=== PATIENT | female | born 1990 | race Caucasian/White ===

== ENCOUNTER 2021-06-10 10:37 | Outpatient (CLI) | payer BC, SELFPAY ==
--- NOTE | ~2021-06-10 | XR_ITS ---
EXAMINATION: XR hysterosalpingogram DATE: 06/10/2021 13:12 CDT INDICATION: Infertility TECHNIQUE: Fluoroscopy was provided for a hysterosalpingogram performed by Dr. Guanaco Ramirez. FINDINGS: There is normal intraluminal morphology of the uterus. The fallopian tubes are normal in a ppearance and are widely patent, with free spill into the peritoneal cavity from both sides. IMPRESSION: 1. Normal hysterosalpingogram. The uterus demonstrates normal intraluminal morphology and both fall opian tubes are patent. Reviewed, dictated and finalized at location A. IMPRESSION: 1. Normal hysterosalpingogram. The uterus demonstrates normal intraluminal mo rphology and both fallopian tubes are patent.
[2021-06-10 12:42] LABS: Beta HCG Quantitative < 2.39 mIU/ML
--- NOTE | 2021-06-10 13:08 | W.PM.PROC2 ---
Procedure Note - Detailed Date of Procedure 06/10/21 Pre-op Diagnosis infertility and Pre surgery testing Post-op Diagnosis same Procedure Performed Hysterosalpingogram Surgeon Nicola Ramirez MD Anesthesia none Indications unexplained infertility Findings normal hysterosalpingogram Description of Procedure the patient was placed on the fluoroscopy table. A speculum was placed in the vagina. Cervix was grasped with a tenaculum. The catheter was placed the uterine cavity and the bulb was inflated. The speculum was removed with the angiocath still placed in the intrauterine cavity. Dye was then removed. The catheter. Fluoroscopic images obtained this process. Patient experienced some moderate to severe discomfort. The balloon of the catheter was deflated and the catheter was removed while the images were being obtained. The procedure was terminated. Patient tolerated the procedure well. There were no complications. Estimated Blood Loss 0 Complications No immediate complications Condition stable Disposition other
== END 2021-06-10 10:38 | disposition home or self-care (01) ==
LOC: ANHIMG 10:48
PROVIDERS: PCP Obstetrics & Gynecology; Visit Provider Obstetrics & Gynecology
DX: Z01.89 Encounter for other specified special examinations (principal); N97.9 Female infertility, unspecified
CPT/HCPCS: 36415; 58340; 74740; 84702; Q9966; Q9967

== ENCOUNTER 2021-09-07 02:29 | Day surgery (SDC) | payer BC, SELFPAY ==
[2021-09-03 14:42] VITALS: BMI 33.1
--- NOTE | 2021-09-03 14:58 | PC.NURSE ---
Report to the Outpatient Waiting Room, entrance under the green pavilion located off [facility], at time _1230__ on date ___09/07/21____. OR Time: ____1430____. - You and your visitor will be asked a series of questions to screen for COVID 19 for your protection. - A mask is required within the hospital. - Only one visitor is allowed at this time. Patient visitors will be guided where to wait when not with patient. Preoperative COVID Testing Requirements: No COVID Test needed if: (proof is required; if not received patient will have Rapid Test prior to entry) - Patient has received COVID Vaccine at least 14 days prior to procedure date or - Patient has positive COVID test result within last 90 days of surgery date. COVID Test needed if above criteria is not met If not COVID vaccinated a COVID test must be conducted within 72 hours of surgery and patient is asked to isolate self from time of testing until procedure. You will go to the [facility] for your COVID testing. The [facility] is located at the corner of [address] [facility]. You will only be called if COVID results are positive and your surgeon may reschedule your elective surgery date. Patients may have clear liquids (water, carbonated beverages, clear teas, apple juice) until 3 hours prior to surgery with a maximum of 20 ounces. - No food from midnight until time of surgery - Infants may have breast milk until 4 hours before surgery, infant formula 6 hours prior to surgery. - Children will be allowed to drink immediately following surgery. If applicable, please bring a bottle or sippy cup to assist with drinking. Juice, water, soda, and popsicles are readily available. For infants on formula, please bring formula the day of surgery. Pacifiers are allowed. Take the following medications with a SIP of water the morning of surgery: __N/A Medications to discontinue per physician N/A Date to take last dose Please no make-up, nail latvian, hairspray, perfume, deodorant, or body powder the day of surgery. No jewelry (including any body piercings) or valuables the day of surgery, leave them at home. Please take a shower or bath the night before, or the morning of, surgery with an antibacterial soap. Wear comfortable, loose fitting clothing. Children are encouraged to wear pajamas. - Jewelry must be removed prior to entering the operating room. Rings and piercings that are not removed may be cut off. - The hospital will not accept responsibility for valuables. - Please leave all valuables, including medications, at home the day of surgery. If you are going home after surgery, a licensed frontload driver must drive you home. - NO public transportation without another adult. - We recommend that an adult stay with you for 24 hours following discharge. - We also recommend that you do not drive, make important decision, drink alcoholic beverages, or take any drugs that were not prescribed by your health care provider for at least 24 hours after your discharge time. For Pediatric surgeries, we recommend two adults accompany the child home (only one inside the building at this time). Follow any additional instructions given to you from your surgeon. Telephone instructions given to __PT and asked if any additional questions and then verbalized understanding. Patient advised to call surgeon office or pre surgery nurse liaison [phone] if any additional questions.
--- NOTE | 2021-09-04 15:05 | WPDANESEPPF ---
Anes - Initial Pre Proc Eval Procedure: Operation Date: 09/07/21 14:30 Proposed Procedures p Suction Dilatation and Curettage - Haleigh Up MD <Enrique Ty MD - Last Filed: 09/21/21 14:55> Date/Time: 09/04/21 15:05 <Enrique Ty MD - Last Filed: 09/21/21 14:55> Surgeon: Haleigh Up MD <Enrique Ty MD - Last Filed: 09/21/21 14:55> Pre Op Diagnosis: missed AB <Enrique Ty MD - Last Filed: 09/21/21 14:55> Patient Data Age: 31 Gender: F Height: 1.68 m Weight: 93.18 kg <Enrique Ty MD - Last Filed: 09/21/21 14:55> Allergies Allergy/AdvReac Type Severity Reaction Status Date / Time No Known Allergies Allergy Unverified 09/07/21 12:51 <Enrique Ty MD - Last Filed: 09/21/21 14:55> Home Medications Medication Instructions Recorded Confirmed Type No Home Medications 09/03/21 09/07/21 History <Enrique Ty MD - Last Filed: 09/21/21 14:55> Patient hx anesthesia problems: none <Seun Casey MD - Last Filed: 09/07/21 13:30> Family hx anesthesia problems: none <Seun Casey MD - Last Filed: 09/07/21 13:30> Results Review: All pre-operative results and documents have been reviewed as part of the pre-operative evaluation. <Enrique Ty MD - Last Filed: 09/21/21 14:55> [facility] Past Medical History Medical History: Medical History (Updated 09/07/21 @ 14:36 by Haleigh Up MD) Obesity <Enrique Ty MD - Last Filed: 09/21/21 14:55> Surgical History Surgical History: Surgical History (Updated 09/07/21 @ 13:30 by Seun Casey MD) H/O wisdom tooth extraction <Enrique Ty MD - Last Filed: 09/21/21 14:55> Family History Family History: Family History Sibling Family history of migraine headaches Mother Patient's mother is in good health <Enrique Ty MD - Last Filed: 09/21/21 14:55> Social History Social History: Social History Smoking status: Never smoker Second hand tobacco smoke exposure: No Alcohol intake: current Drinks per week: 1 Alcohol use details: STATES NONE SINCE FINDING OUT SHE WAS Substance use: never Substance use type: does not use Living arrangements: with family Spiritual care concerns: No <Enrique Ty MD - Last Filed: 09/21/21 14:55> Anes - Eval Final PreProcedure Day of Procedure 09/04/21 15:05 <Enrique Ty MD - Last Filed: 09/21/21 14:55> Patient weight: obese <Seun Casey MD - Last Filed: 09/07/21 13:30> Heart: regular rate and rhythm <Seun Casey MD - Last Filed: 09/07/21 13:30> Lungs: clear to auscultation <Seun Casey MD - Last Filed: 09/07/21 13:30> Airway: Mallampati scale class II <Seun Casey MD - Last Filed: 09/07/21 13:30> Neurological: alert and oriented <Seun Casey MD - Last Filed: 09/07/21 13:30> Last oral intake: >/= 8 hours <Seun Casey MD - Last Filed: 09/07/21 13:30> ASA classification: II <Seun Casey MD - Last Filed: 09/07/21 13:30> Emergent: no <Seun Casey MD - Last Filed: 09/07/21 13:30> Anesthetic plan: proceed <Seun Casey MD - Last Filed: 09/07/21 13:30> Anesthesia type and monitoring: general GIVS and standard monitoring <Seun Casey MD - Last Filed: 09/07/21 13:30> Results Review: All pre-operative results and documents have been reviewed as part of the pre-operative evaluation. <Enrique Ty MD - Last Filed: 09/21/21 14:55> Informed Consent: The patient's anesthetic plan and its attendant risks and benefits were discussed with the patient/family/POA. Questions were solicited and answers provided to the satisfaction of the patient/family/POA. <Enrique Ty MD - Last Filed: 09/21/21 14:55>
[2021-09-07] MEDS: LACTATED RINGERS 1,000 ML 30 ML IV CONT (13:10)
[2021-09-07] MEDS: ACETAMINOPHEN 500 MG TABLET 1000 MG PO (13:16)
--- NOTE | 2021-09-07 14:34 | PM.IMHP ---
H&P: HPI History of Present Illness Date/Time: 09/07/21 14:34 Chief Complaint: suction D and C Narrative: Chacha Landeros is a 31yo with 8 week missed ab, diagnosed last week in office. No bleeding. very mild cramping. O+. Plan for suction D and C today. Review of Systems Review of Systems: All systems reviewed & are unremarkable except as noted in HPI and below PMFSH Past Medical History Medical History (Updated 09/07/21 @ 14:36 by Haleigh Up MD) Obesity Surgical History Surgical History (Updated 09/07/21 @ 13:30 by Seun Casey MD) H/O wisdom tooth extraction Family History Family History Sibling Family history of migraine headaches Mother Patient's mother is in good health Social History Social History Smoking status: Never smoker Second hand tobacco smoke exposure: No Alcohol intake: current Drinks per week: 1 Alcohol use details: STATES NONE SINCE FINDING OUT SHE WAS Substance use: never Substance use type: does not use Living arrangements: with family Spiritual care concerns: No Meds Home Medications and Allergies Home Medications Medication Instructions Recorded Confirmed Type No Home Medications 09/03/21 09/07/21 History Allergies Allergy/AdvReac Type Severity Reaction Status Date / Time No Known Allergies Allergy Unverified 09/07/21 12:51 Exam Const: General: no acute distress Resp: Effort & Inspection: normal respiratory effort Auscultation: clear to auscultation bilaterally Cardio: Rate: regular rate Rhythm: regular rhythm GI: GI Palp: Yes Soft to palpation Extrem: General: normal to inspection Assessment and Plan Assessment and plan (1) Missed ab: Code(s): O02.1 - Missed Status: Acute Additional Plan Plan to proceed with suction D and C. Previously discussed RBA. doxy 100 intraop Rh pos
--- NOTE | 2021-09-07 14:37 | WPDHPUPDATE1 ---
History and Physical Update Update Date/Time: 09/07/21 14:37 History and Physical has been reviewed, including an updated exam of the patient. There are NO changes in the patient's condition. Risks, benefits, and alternatives have been discussed and questions answered. Patient agrees to proceed with procedure.
[2021-09-07] MEDS: DOXYCYCLINE IV 100 MG in SODIUM CHLORIDE 0.9% IV 100 ML IVPB (14:43)
[2021-09-07] MEDS: LIDO 1%/EPINEPHRINE 1:100,000 50 ML VIAL 10 ML INFILTRATE (14:54)
[2021-09-07] MEDS: FERRIC SUBSULFATE 8 ML SOLUTION WITH APPLICATOR TOPICAL (15:02)
[2021-09-07] MEDS: KETOROLAC 30 MG/ML VIAL (*BKC) IV PUSH (15:04)
--- NOTE | 2021-09-07 15:06 | W.PM.PROC2 ---
Procedure Note - Detailed Date of Procedure 09/07/21 Pre-op Diagnosis missed AB Post-op Diagnosis same Procedure Performed suction D and C Surgeon Haleigh Up MD Anesthesia MAC Indications 8 week missed Description of Procedure The patient was taken to the OR and placed in supine position in dorsal lithotomy. She received MAC anesthesia and doxycycline. She was prepped and draped in normal fashion. A speculum was placed and the cervix was grasped with a single tooth tenaculum. A paracervical block was placed with 10cc 1% lidocaine with epinephrine. The cervix was sequentially dilated to 8 dover. The suction was tested and then the suction catheter was inserted into the uterine cavity. Several passes were made until no further products of conception were obtained. The tenaculum was removed and hemostasis was obtained with pressure and monsel's solution. The speculum was removed. The patient tolerated the procedure well and was taken to the recovery room in stable condition. Estimated Blood Loss 50 Drains No Packing No Pathology yes Complications No immediate complications Condition stable Disposition same day
[2021-09-07 15:10] VITALS: BP 121/53; PULSE 101; RESP 16; O2SAT 95
[2021-09-07 15:40] VITALS: BP 123/58; PULSE 89; RESP 16
[2021-09-07 16:10] VITALS: BP 121/59; PULSE 77; RESP 16
== END 2021-09-07 16:28 | disposition home or self-care (01) ==
PROVIDERS: Visit Provider Obstetrics & Gynecology
PROC: (CPT 59820; principal; 2021-09-07 14:30)
DX: O02.1 Missed abortion (principal); Z3A.08 8 weeks gestation of pregnancy
CPT/HCPCS: 59820; 36415; 85461; 88305; A9270; J1100; J1885; J2250; J2405; J2704; J3010; J7120

== ENCOUNTER 2021-11-22 10:39 | Emergency (ER) | payer BC, SELFPAY ==
[2021-11-22 10:48] VITALS: BP 124/85; PULSE 89; RESP 16; TEMP 36.8; O2SAT 100
--- NOTE | 2021-11-22 11:14 | ED.GENADULT ---
HPI - General Adult General Chief complaint: Abdominal Pain Stated complaint: Stomach pain Source: patient Mode of arrival: ambulatory Limitations: no limitations History of Present Illness HPI narrative: Patient presents for evaluation of pelvic pain since last night around 2029. She indicates she was watching TV at the time of symptom onset. Pain has primarily been present when ambulating and is alleviated with rest. She rates her pain as 8 out of 10 in severity with movement, described as sharp . She denies any fever, chills, nausea, vomiting, change in bowel pattern. Last bowel movement was this morning, solid in consistency, without the presence of blood or mucus in the stool. LMP 11/05/2021. Denies any vaginal bleeding or discharge. She had a miscarriage back in August 2021 and was 8 weeks gestation at that time. She had a subsequent dilatation and curettage. She and her are actively attempting to conceive. She took some tylenol last night for her pain. She denies any other abdominal surgeries. She states she had an ovarian cyst many years ago and is unsure whether her current symptoms are consistent with those experienced with ovarian cyst in the past. Related Data Home Medications Medication Instructions Recorded Confirmed No Home Medications 09/03/21 09/07/21 Allergies Allergy/AdvReac Type Severity Reaction Status Date / Time No Known Allergies Allergy Unverified 09/07/21 12:51 Review of Systems Review of Systems: CONSTITUTIONAL: Denies fever, chills, or sweats. EYES: Denies visual changes, redness, or discharge. ENT: Denies rhinorrhea, congestion, sore throat, or otalgia. CARDIOVASCULAR: Denies chest pain, palpitations, or edema. RESPIRATORY: Denies cough or dyspnea. GASTROINTESTINAL: Reports pelvic pain. Denies nausea, vomiting, or diarrhea. GENITOURINARY: Denies dysuria or hematuria. SKIN: Denies rash or itching. MUSCULOSKELETAL: Denies back pain, joint pain, or myalgia. NEUROLOGIC: Denies headache, numbness, dizziness, or weakness. PSYCHIATRIC: Denies anxiety or depression. [facility] Past Medical History Medical History (Updated 11/22/21 @ 11:20 by Rito Urias, YAZ, PURVI) Obesity Ovarian cyst Surgical History Surgical History H/O wisdom tooth extraction History of D&C Family History Family History Sibling Family history of migraine headaches Mother Patient's mother is in good health Social History Social History Smoking status: Never smoker Second hand tobacco smoke exposure: No Alcohol intake: current Drinks per week: 1 Alcohol use details: STATES NONE SINCE FINDING OUT SHE WAS Substance use: never Substance use type: does not use Spiritual care concerns: No Exam Narrative: GENERAL: Well-appearing, well-nourished, and in no acute distress. HEAD: Normocephalic, atraumatic. EYES: PERRLA and EOMI. ENT: Nares clear, no rhinorrhea or epistaxis. Mucous membranes moist. Oropharynx without tonsillar hypertrophy exudate or other lesions. Bilateral TMs pearly lee nonbulging NECK: Supple. No adenopathy or masses. No carotid bruits or JVD CHEST: Clear to auscultation. No respiratory distress. No wheezes rales or rhonchi HEART: Regular rate and rhythm. No murmur heard. Normal peripheral pulses. ABDOMEN: Soft, nontender, nondistended, normal active bowel sounds. EXTREMITIES: Normal range of motion. No edema. SKIN: Warm, dry, no rash. NEURO: No focal deficits. Alert and oriented x3. PSYCH: Normal mood and affect. Course Course Emergency Course: This is a 31-year-old female who presented with complaints of pelvic pain. There is no evidence of infection in her urine. was negative. I did offer to perform pelvic exam, which she declined. Unfortunately I can
== END 2021-11-22 11:25 | disposition short-term general hospital (02) ==
PROVIDERS: Emergency Provider Nurse Practitioner
DX: R10.2 Pelvic and perineal pain (principal); E66.9 Obesity, unspecified; Z68.33 Body mass index [BMI] 33.0-33.9, adult
CPT/HCPCS: 81003; 81025; 99212; G0463

== ENCOUNTER 2021-11-22 11:33 | Emergency (ER) | payer BC, SELFPAY ==
[2021-11-22 11:35] VITALS: BP 123/76; PULSE 88; RESP 16; TEMP 36.3; O2SAT 100
[2021-11-22 12:06] LABS: Basophils Percent Auto 0.2 % (0.2-1.2); Eosinophils Absolute Auto 0.1 K/mm3 (0-0.3); Eosinophils Percent Auto 0.9 % (0-4.4); Hematocrit 45.2 % (37.0-47.0); Hemoglobin 14.3 g/dL (12.0-15.0); Immature Granulocyte Absolute 0.05 K/mm3 (0.00-0.031); Immature Granulocyte Percent A 0.5 % (0-0.5); Lymphocytes Absolute Auto 2.59 K/mm3 (0.9-3.2); Lymphocytes Percent Auto 28.3 % (18.3-44.2); Mean Corpuscular HGB Conc 31.6 g/dl (32-36); Mean Corpuscular Hemoglobin 28.7 pg (26-34); Mean Corpuscular Volume 90.6 fl (80-100); Mean Platelet Volume 9.7 fl (7.4-10.4); Monocytes Absolute Auto 0.7 K/mm3 (0.1-0.6); Monocytes Percent Auto 7.2 % (2.6-8.5); Neutrophils Absolute Auto 5.7 K/mm3 (1.3-6.7); Neutrophils Percent Auto 62.9 % (45.5-73.1); Platelet Count Result 300 k/mm3 (150-375); Red Blood Count 4.99 M/mm3 (4.2-5.4); Red Cell Distribution Width 12.9 % (11.5-14.5); White Blood Count 9.1 K/mm3 (4.5-10.0)
[2021-11-22 12:14] LABS: Add Urine Microscopic? YES; Appearance Urine Cloudy (Clear); Bacteria Urine 2+ /hpf; Bilirubin Urine Negative (Negative); Blood Urine 1+ (Negative); Color Urine Yellow (Yellow); Glucose Urine UA Negative (Negative); Ketones Urine Trace mg/dL (Negative); Leukocyte Esterase Ur Trace LEU/UL (Negative); Mucus Urine Rare /lpf; Nitrate Urine Negative (Negative); Protein Urine Negative (Negative); Squamous Epithelial Cell Urine Moderate /hpf (Few); Urobilinogen Urine Negative mg/dL (<2.0)
[2021-11-22 12:17] LABS: Alanine Aminotransferase 25 U/L (4-35); Albumin Level 4.9 g/dL (3.5-5.1); Alkaline Phosphatase 77 U/L (38-126); Anion Gap 10 mmol/L (8-16); Aspartate Amino Transferase 27 U/L (14-36); Bilirubin,Total 0.6 mg/dL (0.2-1.3); Blood Urea Nitrogen 9 mg/dL (7-17); Calcium 9.1 mg/dL (8.4-10.2); Carbon Dioxide 24 mmol/L (22-30); Chloride 103 mmol/L (98-107); Estimated CRCL calculation 104 ml/min; Estimated Glomerular Filt Rate > 60; Glucose 96 mg/dL (65-110); Lipase 35 U/L (23-300); Sodium 137 mmol/L (137-145)
--- NOTE | 2021-11-22 12:47 | ED.ABDPAIN ---
HPI - Abdominal Pain General Chief Complaint: Abdominal Pain Stated Complaint: pelvic pain/abd pain Time Seen by Provider: 11/22/21 11:58 Source: patient History of Present Illness HPI narrative: Patient presents with lower abdominal pain. Reports her pain started last night. Her pain is achy is only present when she is walking around no radiation. Reports she is feeling much better now initially went to an urgent care and was referred to an ER for further evaluation. She denies any nausea vomiting or diarrhea she denies prior abdominal surgeries she denies any urinary symptoms denies any vaginal discharge or bleeding Related Data Home Medications Medication Instructions Recorded Confirmed No Home Medications 09/03/21 09/07/21 Allergies Allergy/AdvReac Type Severity Reaction Status Date / Time No Known Allergies Allergy Unverified 09/07/21 12:51 Review of Systems Review of Systems: CONSTITUTIONAL: Denies fever, chills, or sweats. EYES: Denies visual changes, redness, or discharge. ENT: Denies rhinorrhea, congestion, sore throat, or otalgia. CARDIOVASCULAR: Denies chest pain, palpitations, or edema. RESPIRATORY: Denies cough or dyspnea. GASTROINTESTINAL: Denies nausea, vomiting, or diarrhea. GENITOURINARY: Denies dysuria or hematuria. SKIN: Denies rash or itching. MUSCULOSKELETAL: Denies back pain, joint pain, or myalgia. NEUROLOGIC: Denies headache, numbness, dizziness, or weakness. PSYCHIATRIC: Denies anxiety or depression. All systems reviewed & are unremarkable except as noted in HPI and below PMFSH Past Medical History Medical History Obesity Ovarian cyst Surgical History Surgical History H/O wisdom tooth extraction History of D&C Family History Family History Sibling Family history of migraine headaches Mother Patient's mother is in good health Social History Social History Smoking status: Never smoker Second hand tobacco smoke exposure: No Alcohol intake: current Drinks per week: 1 Alcohol use details: STATES NONE SINCE FINDING OUT SHE WAS Substance use: never Substance use type: does not use Spiritual care concerns: No Exam Narrative: GENERAL: Well-appearing, well-nourished, and in no acute distress. HEAD: Normocephalic, atraumatic. EYES: PERRLA and EOMI. ENT: Nares clear, no rhinorrhea or epistaxis. Mucous membranes moist. NECK: Supple. No masses. No JVD ABDOMEN: Soft, nontender, nondistended, normal active bowel sounds. EXTREMITIES: Normal range of motion. No edema. SKIN: Warm, dry, no rash. NEURO: No focal deficits. Alert and oriented x3. PSYCH: Normal mood and affect. Course Reevaluation(s) Reevaluation #1: Patient continues to be without pain while in the ER. Results and plan reviewed with patient. Patient is comfortable outpatient plan. Date: 11/22/21 Time: 13:03 Vital Signs Vital signs: Vital Signs Temperature 36.3 C L 11/22/21 11:35 Pulse Rate 88 11/22/21 11:35 Respiratory Rate 16 11/22/21 11:35 Blood Pressure 123/76 11/22/21 11:35 Pulse Oximetry 100 11/22/21 11:35 Temperature 36.3 C L 11/22/21 11:35 Pulse Rate 88 11/22/21 11:35 Respiratory Rate 16 11/22/21 11:35 Blood Pressure 123/76 11/22/21 11:35 Pulse Oximetry 100 11/22/21 11:35 MDM - Abdominal Pain MDM Narrative Medical decision making narrative: H&P as above, vss, pt looks clinically well, exam without pain, patient declined pelvic exam labs with UA likely contaminated culture is pending, risks and benefits of imaging discussed with the patient low concern for acute process patient is comfortable without further imaging, additional labs/img considered, symptomatic relief available as needed, on reevaluation pt continues to looks cl
== END 2021-11-22 13:13 | disposition home or self-care (01) ==
PROVIDERS: Physician Assistant; Emergency Provider Emergency Medicine
DX: R10.2 Pelvic and perineal pain (principal); E66.9 Obesity, unspecified; Z68.33 Body mass index [BMI] 33.0-33.9, adult
CPT/HCPCS: 36415; 80053; 81001; 81025; 83690; 85025; 87086; 87088; 99283

== ENCOUNTER 2021-11-30 07:04 | Outpatient (RCR) | payer BC, SELFPAY ==
[2021-11-27 17:31] LABS: Beta HCG Quantitative 31.64 mIU/ML
[2021-11-30 08:06] LABS: Beta HCG Quantitative 142.31 mIU/ML
== END 2022-02-25 23:59 | disposition home or self-care (01) ==
LOC: ANHLAB 07:04
PROVIDERS: Visit Provider Obstetrics & Gynecology
DX: Z32.01 Encounter for pregnancy test, result positive (principal)
CPT/HCPCS: 36415; 84702

== ENCOUNTER 2022-07-26 15:00 | Inpatient (IN) | payer BC, SELFPAY ==
--- NOTE | 2022-07-20 14:00 | PC.NURSE ---
Verified with OR schedule and patient --C/S on 08/06/22 at 0730
[2022-07-26] VITALS (46 sets, daily range): BP systolic 57–125; BP diastolic 36–110; PULSE 60–161; RESP 14–20; TEMP 36.1–36.3; O2SAT 97–100; BMI 30.6
--- OUTSIDE RECORDS SUMMARY | 2022-07-26 15:16 | XMS_ITS | Encounter Summary ---
:1990 Author Reason for Visit OB visit Assessment and Plan 1. care: history of infertili ty 2. Breech presentation 3. Gestational diabetes mellitus, class A>1< Discussion Note: None recorded.Patient educational handouts: No information available. Plan of Care Reminders Provider Appointments None recorded. ? ? Lab None recorded. ? ? Referral None recorded. ? ? Procedures None recorded. ? ? Surgeries None recorded. ? ? Imaging None recorded. ? ? Medications Name Start Date ? ? Contour Next EZ Meter ? TEST BLOOD SUGAR FOUR TIMES DAILY Contour Next Test Strips ? Microlet Lancet ? OneTouch Delica Plus Lancet 33 gauge ? ? Medications Administered None recorded. Vitals Height Weight BMI Blood Pressure 5 ft 8 in 190 lbs 28.9 kg/m2 134/83 mm[Hg] Results Lab Results None recorded. Allergies Code Code System Name Reaction Severity Onset NKDA ? ? ? Problems Name Status Onset Date Source ? 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 Active 02/01/2022 ? Gestational Diabetes Mellitus, Class a>1< Active ? ? Breech Presentation Active ? ? Care: History of Infertility Active ? ? Procedures Date Name Performed by ? 09/07/2021 Suction Dilation & Curettage (Surg) Info rmation not available 06/10/2021 Hysterosalpingography Information not av ailable 06/19/2013 Colposcopy Information not avai howard
--- OUTSIDE RECORDS SUMMARY | 2022-07-26 15:16 | XMS_ITS | Encounter Summary ---
:1990 Author Reason for Visit None recorded. Assessment and Plan 1. Gestational diabetes mellitus, class A>1< ? US, obstetric, biophysical profile + non-stress test Discussion Note: None recorded.Patient educational handouts: No information available. Plan of Care Reminders Provider Appointments None recorded. ? ? Lab None recorded. ? ? Referral None recorded. ? ? Procedures None recorded. ? ? Surgeries None recorded. ? ? Imaging US, Obstetric, Biophysical Profile + [place] Non-stress Test Medications Name Start Date ? ? Contour Next EZ Meter ? TEST BLOOD SUGAR FOUR TIMES DAILY Contour Next Test Strips ? Microlet Lancet ? OneTouch Delica Plus Lancet 33 gauge ? ? Medications Administered None recorded. Vitals None recorded. Results Lab Results None recorded. Allergies Code [...] av ailable 06/19/2013 Colposcopy Information not avai lable Notes: Colpo done for abnormal pap juventino t showed lgsil ----CIN1
--- OUTSIDE RECORDS SUMMARY | 2022-07-26 15:17 | XMS_ITS | Encounter Summary ---
:1990 Author Reason for Visit None recorded. Assessment and Plan 1. Gestational diabetes mellitus, class A>1< ? non-stress test Discussion Note: None recorded.Patient educational handouts: No information available. Plan of Care Reminders Provider Appointments None recorded. ? ? Lab None recorded. ? ? Referral None recorded. ? ? Procedures None recorded. ? ? Surgeries None recorded. ? ? Imaging Non-stress Test 06/22/2022 Cord Medications Name Start Date ? ? Contour [...] abnormal pap juventino t showed lgsil ----CIN1 06/14/2022 Non-stress Test Cord
--- OUTSIDE RECORDS SUMMARY | 2022-07-26 15:17 | XMS_ITS | Encounter Summary ---
:1990 Author Reason for Visit OB visit Assessment and Plan 1. care: history of infertili ty 2. Breech presentation ? section (SURG) 3. Gestational diabetes mellitus, class A>1< Discussion Note: None recorded.Patient educational handouts: No information available. Plan of Care Reminders Provider Appointments None recorded. ? ? Lab None recorded. ? ? Referral None recorded. ? ? Procedures None recorded. ? ? Surgeries Section (SURG) 08/06/2022 [facility] None recorded. ? ? Medications Name Start Date ? ? Contour Next EZ Meter ? TEST BLOOD SUGAR FOUR TIMES DAILY Contour Next Test Strips ? Microlet Lancet ? OneTouch Delica Plus Lancet 33 gauge ? ? Medications Administered None recorded. Vitals Height Weight BMI Blood Pressure 5 ft 8 in 190 lbs 28.9 kg/m2 116/76 mm[Hg] Results Lab Results None recorded. Allergies [...]
--- OUTSIDE RECORDS SUMMARY | 2022-07-26 15:17 | XMS_ITS | Encounter Summary ---
:1990 Author Reason for Visit None recorded. Assessment and Plan 1. Gestational diabetes mellitus, class A>1< Pt here for diet teaching. Pt was ruled in for GDM today after appt with Dr. Up. 3hr GTT was borderline and after checkin g BS QID a few pp sugars and one fasting elevated. Went over ideal ranges for FBS and pp BS. Went over carb counting and carb ranges for each meal/snack. Gave ideas f or foods to eat for meals/snacks. Discussed drink options and to avoid soda and juic e. Pt has a meat aversion this . Went over alternatives for protein besid es meat. Told pt she can go online to [employer] for meal options or to look up low carb meal recipes online for ideas as well. Told pt to continue checking BS QID and adjusting d iet to follow low carb diet to try to keep BS within normal range. Pt aware if sugars aren't controlled by diet we would discuss starting insulin. Went over NST schedule with pt and importance of keeping these appts and checking BS for her and baby's health. Pts questions were answered and pt verbalized understanding. CALEB durham Discussion Note: None recorded.Patient educational handouts: No [...]
--- OUTSIDE RECORDS SUMMARY | 2022-07-26 15:17 | XMS_ITS | Encounter Summary ---
[...] ? Imaging US, Obstetric, Biophysical Profile + [place] Non-stress Test Medications Name Start Date ? [...]
--- OUTSIDE RECORDS SUMMARY | 2022-07-26 15:17 | XMS_ITS | Encounter Summary ---
:1990 Author Reason for Visit OB visit Assessment and Plan 1. Gestational diabetes mellitus, class A>1< Discussion Note: [...] BMI Blood Pressure 5 ft 8 in 191 lbs 29 kg/m2 129/77 mm[Hg] Results Lab Results None recorded. Allergies [...] av ailable 06/19/2013 Colposcopy Information not avai labstacia Notes: Colpo done for abnormal pap juventino t showed lgsil ----CIN1 06/14/2022 Non-
--- OUTSIDE RECORDS SUMMARY | 2022-07-26 15:17 | XMS_ITS | Encounter Summary ---
[...] BMI Blood Pressure 5 ft 8 in 189 lbs 28.7 kg/m2 119/83 mm[Hg] Results Lab Results None recorded. Allergies [...] av ailable 06/19/2013 Colposcopy Information not avai labtsacia Notes: Colpo done for abnormal pap juventino t showed lgsil ----CIN1 06/14/2022 Non
--- OUTSIDE RECORDS SUMMARY | 2022-07-26 15:17 | XMS_ITS | Encounter Summary ---
:1990 Author Reason for Visit OB visit Assessment and Plan 1. Routine care Discussion Note: None recorded.Patient educational handouts: No [...] ft 8 in 189 lbs 28.7 kg/m2 138/82 mm[Hg] Results Lab Results None recorded. Allergies [...] abnormal pap juventino t showed lgsil ----CIN1 Vaccine List None recorded. Social History
--- OUTSIDE RECORDS SUMMARY | 2022-07-26 15:17 | XMS_ITS | Encounter Summary ---
[...] answered and pt verbalized understanding. CALEB durham ? US, obstetric, follow-up Discussion Note: None recorded.Patient educational handouts: No information available. Plan of Care Reminders Provider Appointments None recorded. ? ? Lab None recorded. ? ? Referral None recorded. ? ? Procedures None recorded. ? ? Surgeries None recorded. ? ? Imaging US, Obstetric, Follow-up 06/14/2022 [place] Medications Name Start Date ? ? Contour Next EZ Meter ? TEST BLOOD SUGAR FOUR TIMES DAILY Contour Next Test Strips ? Microlet Lancet ? OneTouch Delica Plus Lancet 33 gauge ? ? Medications Administered
--- OUTSIDE RECORDS SUMMARY | 2022-07-26 15:17 | XMS_ITS | Encounter Summary ---
:1990 Author Reason for Visit None recorded. Assessment and Plan 1. Gestational diabetes mellitus, class A>1< ? US, obstetric, follow-up ? US, obstetric, biophysical profile + non-stress test Discussion Note: None recorded.Patient educational handouts: No information available. Plan of Care Reminders Provider Appointments None recorded. ? ? Lab None recorded. ? ? Referral None recorded. ? ? Procedures None recorded. ? ? Surgeries None recorded. ? ? Imaging US, Obstetric, Follow-up 07/13/2022 [place] ? US, Obstetric, Biophysical Profile + [place] Non-stress Test Medications Name Start Date ? [...]
--- OUTSIDE RECORDS SUMMARY | 2022-07-26 15:17 | XMS_ITS | Encounter Summary ---
[...] None recorded. ? ? Imaging Non-stress Test 07/20/2022 [place] Medications Name Start Date ? ? Contour [...] abnormal pap juventino t showed lgsil ----CIN1 06/22/2022 Non-stress Test [place]
--- OUTSIDE RECORDS SUMMARY | 2022-07-26 15:17 | XMS_ITS | Encounter Summary ---
:1990 Author Reason for Visit OB visit Assessment and Plan 1. Breech presentation 2. Gestational diabetes mellitus, class A>1< Discussion Note: [...] ft 8 in 191 lbs 29 kg/m2 140/82 mm[Hg] Results Lab Results None recorded. Allergies [...] Notes: Colpo done for abnormal pap juventino dominguez
--- OUTSIDE RECORDS SUMMARY | 2022-07-26 15:17 | XMS_ITS | Encounter Summary ---
[...] BMI Blood Pressure 5 ft 8 in 192 lbs 29.2 kg/m2 119/77 mm[Hg] Results Lab Results None recorded. Allergies [...] pap juventino t showed lgsil ----CIN1 06/14/2022 Non-s
--- OUTSIDE RECORDS SUMMARY | 2022-07-26 15:17 | XMS_ITS | Encounter Summary ---
[...] and pt verbalized understanding. CALEB durham ? non-stress test Discussion Note: None recorded.Patient educational handouts: No information available. Plan of Care Reminders Provider Appointments None recorded. ? ? Lab None recorded. ? ? Referral None recorded. ? ? Procedures None recorded. ? ? Surgeries None recorded. ? ? Imaging Non-stress Test 06/14/2022 [place] Medications Name Start Date ? ? Contour Next EZ Meter ? TEST BLOOD SUGAR FOUR TIMES DAILY Contour Next Test Strips ? Microlet Lancet ? OneTouch Delica Plus Lancet 33 gauge ? ? Medications Administered None recorded.
--- OUTSIDE RECORDS SUMMARY | 2022-07-26 15:17 | XMS_ITS | Encounter Summary ---
[...] None recorded. ? ? Imaging Non-stress Test 06/29/2022 [place] Medications Name Start Date ? ? Contour [...] t showed lgsil ----CIN1 06/14/2022 Non-stress Test [place]
--- OUTSIDE RECORDS SUMMARY | 2022-07-26 15:17 | XMS_ITS | Encounter Summary ---
:1990 Author Reason for Visit OB visit Assessment and Plan 1. Gestational diabetes mellitus, class A>1< Pt here for diet teaching. Pt was ruled in for GDM today after appt with Dr. Up. 3hr GTT was borderline and after checkin g BS QID a few pp sugars and two fasting elevated. Went over ideal ranges for [...]
--- OUTSIDE RECORDS SUMMARY | 2022-07-26 15:17 | XMS_ITS | Encounter Summary ---
[...] None recorded. ? ? Imaging Non-stress Test 07/13/2022 [place] Medications Name Start Date ? ? Contour [...] t showed lgsil ----CIN1 06/14/2022 Non-stress Test [place]
--- OUTSIDE RECORDS SUMMARY | 2022-07-26 15:17 | XMS_ITS | Encounter Summary ---
[...] ? Imaging US, Obstetric, Biophysical Profile + [place] Non-stress Test Medications Name Start Date ? [...]
--- OUTSIDE RECORDS SUMMARY | 2022-07-26 15:18 | XMS_ITS | Encounter Summary ---
[...] BMI Blood Pressure 5 ft 8 in 188 lbs 28.6 kg/m2 120/76 mm[Hg] Results Lab Results None recorded. Allergies [...] abnormal pap juventino t showed lgsil ----CIN1 03/31/2022 US, Obstetric, 2Nd or 3Rd Tr
[2022-07-26 16:05] LABS: Basophils Percent Auto 0.2 % (0.2-1.2); Eosinophils Percent Auto 0.2 % (0-4.4); Hematocrit 36.8 % (37.0-47.0); Hemoglobin 12.1 g/dL (12.0-15.0); Immature Granulocyte Absolute 0.13 K/mm3 (0.00-0.031); Lymphocytes Percent Auto 14.7 % (18.3-44.2); Mean Corpuscular HGB Conc 32.9 g/dl (32-36); Mean Corpuscular Hemoglobin 29.2 pg (26-34); Mean Corpuscular Volume 88.9 fl (80-100); Mean Platelet Volume 10.4 fl (7.4-10.4); Monocytes Absolute Auto 0.7 K/mm3 (0.1-0.6); Monocytes Percent Auto 5.3 % (2.6-8.5); Neutrophils Absolute Auto 10.2 K/mm3 (1.3-6.7); Neutrophils Percent Auto 78.6 % (45.5-73.1); Platelet Count Result 214 k/mm3 (150-375); Red Blood Count 4.14 M/mm3 (4.2-5.4); Red Cell Distribution Width 14.4 % (11.5-14.5)
[2022-07-26] MEDS: LACTATED RINGERS 1,000 ML 125 ML IV CONT ×2 (16:05→16:40)
--- NOTE | 2022-07-26 16:22 | WPDANESEPPF ---
Anes - Initial Pre Proc Eval Procedure: Operation Date: 08/06/22 07:30 Proposed Procedures p Section - Haleigh Up MD Date/Time: 07/26/22 16:22 Surgeon: Haleigh Up MD Pre Op Diagnosis: Primary Section Patient Data Age: 32 Gender: F Height: 1.68 m Weight: 86 kg Last Vital Signs Pulse 103 H 07/26/22 15:30 BP 111/73 07/26/22 15:30 Allergies Allergy/AdvReac Type Severity Reaction Status Date / Time No Known Allergies Allergy Verified 07/20/22 13:38 Home Medications Medication Instructions Recorded Confirmed Type ferrous sulfate 142 mg (45 mg 142 mg PO DAILY 07/20/22 07/26/22 History iron) tablet,extended release prenat.vits,efraín,[id number] 1 tablet PO DAILY 07/20/22 07/26/22 History famotidine 20 mg tablet (Pepcid) 20 mg PO DAILY 07/26/22 07/26/22 History Laboratory Tests 07/26/22 07/26/22 07/26/22 15:48 15:48 15:48 WBC 13.0 K/mm3 H K/mm3 (4.5-10.0) RBC 4.14 M/mm3 L M/mm3 (4.2-5.4) Hgb 12.1 g/dL g/dL (12.0-15.0) Hct 36.8 % L % (37.0-47.0) MCV 88.9 fl fl (80-100) MCH 29.2 pg pg (26-34) MCHC 32.9 g/dl g/dl (32-36) RDW 14.4 % % (11.5-14.5) Plt Count 214 k/mm3 k/mm3 (150-375) MPV 10.4 fl fl (7.4-10.4) Immature Gran % (Auto) 1.0 % H % (0-0.5) Neut % (Auto) 78.6 % H % (45.5-73.1) Lymph % (Auto) 14.7 % L % (18.3-44.2) [place] % (Auto) 5.3 % % (2.6-8.5) Eos % (Auto) 0.2 % % (0-4.4) Baso % (Auto) 0.2 % % (0.2-1.2) Lymph # (Auto) 1.90 K/mm3 K/mm3 (0.9-3.2) [place] # (Auto) 0.7 K/mm3 H K/mm3 (0.1-0.6) Eos # (Auto) 0.0 K/mm3 K/mm3 (0-0.3) Baso # (Auto) 0.0 K/mm3 K/mm3 (0.0-0.1) Abs Immat Gran (auto) 0.13 K/mm3 H K/mm3 (0.00-0.031) Absolute Neuts (auto) 10.2 K/mm3 H K/mm3 (1.3-6.7) Absolute Nucleated RBC 0.0 K/mm3 K/mm3 (0.0-0.012) Nucleated RBC % 0.0 % % (0.0-0.2) RPR Pending Blood Type Pending Antibody Screen Pending Patient hx anesthesia problems: none Family hx anesthesia problems: none Results Review: All pre-operative results and documents have been reviewed as part of the pre-operative evaluation. [facility] Past Medical History Medical History (Updated 07/26/22 @ 16:22 by Seun Casey MD) Breech presentation Gestational diabetes Obesity Ovarian cyst Surgical History Surgical History H/O wisdom tooth extraction History of D&C Family History Family History Sibling Family history of migraine headaches Mother Patient's mother is in good health Grandparent Diabetes mellitus Father Prostate carcinoma Social History Social History Smoking status: Never smoker Second hand tobacco smoke exposure: No Alcohol intake: current Drinks per week: 1 Alcohol use details: STATES NONE SINCE FINDING OUT SHE WAS Substance use: never Substance use type: does not use Has the Lack of Transportation Kept You From Medical Appointments or From Getting Medications?: No Within the Past 12 Months, Were You Worried Whether Your Food Would Run Out Before You Got Money to Buy More?: Never True What is Your Housing Situation Today?: I Have Housing Are You Worried That in the Next 2 Months, You May Not Have Your Own Housing to Live In?: No Do You Have Trouble Paying Your Heating Or Electricity Bill?: No Do You Have Trouble Paying For Medicines?: No Are You Currently Unemployed and Looking for Work?: No Highest Level of Education Completed: Bachelor's Degree Do You Have Trouble With Childcare or the Care of a Family Member?: No Spiritual care concerns: No
--- NOTE | 2022-07-26 17:55 | PM.IMHP ---
H&P: HPI History of Present Illness Date/Time: 07/26/22 17:55 Chief Complaint: cholestasis Narrative: Chacha is a 32yo G1 at 37.4 here with 2 weeks of progressively worsening itching, especially palms of hands. just brought this to our attention today, had a reactive NST in office, bile acids sent. also soles of feet itch every night and very concentrated urine no maatter how much she drinks. was conceived with letrozole, history of infertility. Also has GDMA1, well controlled. Has been breech since 31w so had CS scheduled at 39w. Review of Systems Review of Systems: All systems reviewed & are unremarkable except as noted in HPI and below PMFSH Past Medical History Medical History (Updated 07/26/22 @ 18:00 by Haleigh Up MD) Breech presentation Gestational diabetes Obesity Ovarian cyst Surgical History Surgical History H/O wisdom tooth extraction History of D&C Family History Family History Sibling Family history of migraine headaches Mother Patient's mother is in good health Grandparent Diabetes mellitus Father Prostate carcinoma Social History Social History Smoking status: Never smoker Second hand tobacco smoke exposure: No Alcohol intake: current Drinks per week: 1 Alcohol use details: STATES NONE SINCE FINDING OUT SHE WAS Substance use: never Substance use type: does not use Has the Lack of Transportation Kept You From Medical Appointments or From Getting Medications?: No Within the Past 12 Months, Were You Worried Whether Your Food Would Run Out Before You Got Money to Buy More?: Never True What is Your Housing Situation Today?: I Have Housing Are You Worried That in the Next 2 Months, You May Not Have Your Own Housing to Live In?: No Do You Have Trouble Paying Your Heating Or Electricity Bill?: No Do You Have Trouble Paying For Medicines?: No Are You Currently Unemployed and Looking for Work?: No Highest Level of Education Completed: Bachelor's Degree Do You Have Trouble With Childcare or the Care of a Family Member?: No Spiritual care concerns: No Meds Home Medications and Allergies Home Medications Medication Instructions Recorded Confirmed Type ferrous sulfate 142 mg (45 mg 142 mg PO DAILY 07/20/22 07/26/22 History iron) tablet,extended release prenat.vits,efraín,vwq-qulv-dlocd 1 tablet PO DAILY 07/20/22 07/26/22 History famotidine 20 mg tablet (Pepcid) 20 mg PO DAILY 07/26/22 07/26/22 History Allergies Allergy/AdvReac Type Severity Reaction Status Date / Time No Known Allergies Allergy Verified 07/20/22 13:38 Vital Signs Vital Signs - 24 hr 07/26/22 15:30 07/26/22 16:42 Pulse Rate 103 H 88 Blood Pressure 111/73 123/72 Exam Const: General: no acute distress Resp: Effort & Inspection: normal respiratory effort Auscultation: clear to auscultation bilaterally Cardio: Rate: regular rate Rhythm: regular rhythm GI: GI Palp: Yes Soft to palpation Extrem: General: normal to inspection H&P: Results Labs Labs: Short CBC 07/26/22 Range/Units 15:48 WBC 13.0 H (4.5-10.0) K/mm3 Hgb 12.1 (12.0-15.0) g/dL Hct 36.8 L (37.0-47.0) % Plt Count 214 (150-375) k/mm3 Assessment and Plan Assessment and plan (1) Cholestasis during : Code(s): O26.619 - Liver and biliary tract disorders in , unspecified trimester; K83.1 - Obstruction of bile duct Status: Acute (2) Breech presentation: Code(s): O32.1XX0 - Maternal care for breech presentation, not applicable or unspecified Status: Acute Plan CS delivery for presumed cholestasis bile acids pending GDMA1 well controlled FHT category 1
--- NOTE | 2022-07-26 18:01 | WPDHPUPDATE1 ---
History and Physical Update Update Date/Time: 07/26/22 18:01 History and Physical has been reviewed, including an updated exam of the patient. There are NO changes in the patient's condition. Risks, benefits, and alternatives have been discussed and questions answered. Patient agrees to proceed with procedure.
--- NOTE | 2022-07-26 18:17 | PC.NURSE ---
1750--Dr. Up at , u/s shows fetus in breech position, will proceed with planned c/s.
--- NOTE | 2022-07-26 19:11 | P.PCNOB_ITS ---
OB - Delivery Note Procedure Delivery date: 07/26/22 Procedure: Procedures Operation Date: 07/26/22 17:30 <No data on this case meets the specified criteria> Primary LTCS Events: Breech Presentation and Other (cholestasis) Route of delivery: Specimen: Yes (placenta) Quantitative Blood Loss (ml): 575 Anesthesia type: Spinal Disposition: Floor Complications: none Narrative: The patient was taken to the OR and had her epidural anesthesia dosed adequately. She was placed in dorsal supine position with left lateral tilt. SCDs and montoya had been placed. She was prepped and draped in the normal sterile fashion. A Pfannensteil skin incision was made and carried through to the underlying layer of fascia. The fascia was incised in the midline and then extended laterally using Arroyo scissors. The muscles were in the midline and the peritoneum was entered bluntly. The peritoneal incision was extended inferiorly and superiorly with care to avoid the bladder. The bladder blade was then inserted, the vesicouterine peritoneum was grasped, incised with Metzenbaum scissors, and a bladder flap created. The bladder blade was reinserted. A low transverse uterine incision was made with a scalpel and extended bluntly. AROM was performed and fluid was noted to be clear. The baby was delivered in breech presentation easily. The baby's oropharynx was suctioned. After 30 seco nds, the cord was clamped and cut and the infant was handed off. Cord blood was unable to be obtained due to short cord and the placenta was then removed manually. The uterus was exteriorized. A moist lap sponge was used to curette the endometrium. The uterine incision was then closed with two layers of 0-Vicryl in a running, locking fashion. Good hemostasis was noted. The posterior cul de sac was irrigated with normal saline and cleared of all clot and debris. The uterus was returned to the abdomen. Both lateral gutters were then irrigated. The rectus muscles were inspected and found to be hemostatic. The fascia was reapproximated using 0-Vicryl in running fashion. The subcutaneous tissue was irrigated with normal saline and made hemostatic with Bovie electrocautery. The skin was then closed with absorbable betty. Steri strips and a bandage were applied. The uterus was evacuated. The patient tolerated the procedure very well. All counts were correct. She was taken to the recovery room in good condition. [place] Baby Date of : 07/26/22 Time of : 18:34 Weeks of gestation at delivery: 37 gender: Female Weight (pounds): 5 Weight (ounces): 15 presentation: breech Placenta delivery description: Manual Removal Cord Vessel Description: 3 Vessels score one minute: 8 score five minutes: 9
[2022-07-26] MEDS: DEXTROSE 5%/0.45% SOD CHL 1,000 ML 125 ML IV CONT (22:15)
[2022-07-26] MEDS: LANOLIN (LANSINOH) 7.5 GM CREAM 1 APPLIC TOPICAL (22:17)
[2022-07-27] MEDS: HYDROcodone/acetaminophen (*CRX) 5-325 MG TABLET 1 TAB PO ×5 (00:30→19:25)
[2022-07-27] MEDS: KETOROLAC 30 MG/ML VIAL (*BKC) IV PUSH (00:30)
[2022-07-27] MEDS: ONDANSETRON INJ 4 MG/2 ML VIAL IV PUSH (00:30)
[2022-07-27 02:30] VITALS: BP 100/54; PULSE 77; RESP 16; TEMP 36.5
[2022-07-27 06:02] LABS: Basophils Percent Auto 0.1 % (0.2-1.2); Eosinophils Percent Auto 0.1 % (0-4.4); Hematocrit 29.5 % (37.0-47.0); Hemoglobin 9.6 g/dL (12.0-15.0); Immature Granulocyte Absolute 0.11 K/mm3 (0.00-0.031); Immature Granulocyte Percent A 0.7 % (0-0.5); Lymphocytes Absolute Auto 1.51 K/mm3 (0.9-3.2); Lymphocytes Percent Auto 9.8 % (18.3-44.2); Mean Corpuscular HGB Conc 32.5 g/dl (32-36); Mean Corpuscular Hemoglobin 28.9 pg (26-34); Mean Corpuscular Volume 88.9 fl (80-100); Mean Platelet Volume 11.1 fl (7.4-10.4); Monocytes Absolute Auto 0.9 K/mm3 (0.1-0.6); Monocytes Percent Auto 5.9 % (2.6-8.5); Neutrophils Absolute Auto 12.8 K/mm3 (1.3-6.7); Neutrophils Percent Auto 83.4 % (45.5-73.1); Platelet Count Result 153 k/mm3 (150-375); Red Blood Count 3.32 M/mm3 (4.2-5.4); Red Cell Distribution Width 14.2 % (11.5-14.5); White Blood Count 15.4 K/mm3 (4.5-10.0)
--- NOTE | 2022-07-27 07:19 | P.PNOB_ITS ---
OB - PN: Subj Subjective Date/time seen: 07/27/22 07:19 Patient comments: no complaints and pain well controlled baby status: nursing well [place] feeding status: exclusively breast feeding Narrative: POD 1 from primary CS. Doing well. Normal lochia. Eating, ambulating, montoya out. OB - PN: Obj Data Labs CBC & Chem 7: 07/27/22 02:37 Labs: Laboratory Results - last 24 hr 07/26/22 07/26/22 07/27/22 15:48 15:48 02:37 WBC 13.0 H 15.4 H RBC 4.14 L 3.32 L Hgb 12.1 9.6 L Hct 36.8 L 29.5 L MCV 88.9 88.9 MCH 29.2 28.9 MCHC 32.9 32.5 RDW 14.4 14.2 Plt Count 214 153 MPV 10.4 11.1 H Immature Gran % (Auto) 1.0 H 0.7 H Neut % (Auto) 78.6 H 83.4 H Lymph % (Auto) 14.7 L 9.8 L [place] % (Auto) 5.3 5.9 Eos % (Auto) 0.2 0.1 Baso % (Auto) 0.2 0.1 L Lymph # (Auto) 1.90 1.51 [place] # (Auto) 0.7 H 0.9 H Eos # (Auto) 0.0 0.0 Baso # (Auto) 0.0 0.0 Abs Immat Gran (auto) 0.13 H 0.11 H Absolute Neuts (auto) 10.2 H 12.8 H Absolute Nucleated RBC 0.0 0.0 Nucleated RBC % 0.0 0.0 Blood Type O Positive Antibody Screen Negative OB - PN A/P Assessment and Plan (1) delivery delivered: Code(s): O82 - Encounter for delivery without indication Status: Acute Plan day: 1 Plan: routine care Time Spent With Patient Time: Total time spent is greater than 50% in coordination of care (as documented) at patient's floor/unit and/or counseling patient: Exam Narrative: NAD abdomen soft, appropriately tender, incision bandaged Extremities nontender with 1+ edema
--- NOTE | 2022-07-27 07:31 | WPDANLDPN2 ---
Anes-Prog Note L&D Date/Time: 07/27/22 07:31 Comfortable throughout: section Neuraxial method: spinal Epidural/Spinal procedure site: clean & non-tender Neuro status: Neuro function grossly intact. Cardiovascular status: normal Respiratory status: normal Airway patency: baseline Mental status: baseline Post-Op hydration status: normal Vital Signs: Last Vital Signs Temp 97.7 F 07/27/22 02:30 Pulse 77 07/27/22 02:30 Resp 16 07/27/22 02:30 BP 100/54 L 07/27/22 02:30 Pulse Ox 100 07/26/22 21:24 O2 Del Method Room Air 07/26/22 21:15 Pain score (VAS): 0/0 I/O: Intake & Output 07/26/22 07/26/22 07/27/22 15:59 23:59 07:59 Intake Total 1000 1700 Output Total 600 1000 Balance 400 700 Post-procedural complaints: none Patient feedback: Patient satisfied with anesthetic care.
--- NOTE | 2022-07-27 07:32 | WPDANLDNPN2 ---
Anes-Prog Note L&D-Neuraxial Date/Time: 07/27/22 07:32 Neuraxial medications: intrathecal PF morphine Opiod-related complaints: none Patient feedback: Patient satisfied with post-operative pain management.
[2022-07-27 07:35] VITALS: BP 105/62; PULSE 70; RESP 16; TEMP 36.8; O2SAT 100
[2022-07-27] MEDS: IBUPROFEN 600 MG TABLET PO ×2 (10:16→19:25)
[2022-07-27] MEDS: SIMETHICONE 80 MG TAB.CHEW PO ×3 (10:17→19:25)
[2022-07-27] MEDS: MULTIVIT/MIN/PREN/FOL AC/IRON TABLET 1 TAB PO (10:19)
[2022-07-27] MEDS: POLYSACCHARIDE IRON COMPLEX 150 MG CAPSULE PO (10:20)
[2022-07-27] MEDS: DOCUSATE SODIUM 100 MG CAPSULE PO ×2 (10:20→21:37)
--- NOTE | 2022-07-27 10:59 | PC.NURSE ---
[id number] RN was called to the room to assist with . Primary RN is assisting mother with latching using a nipple shield, then introductions were made, then consulted with patient to assess needs related to . Infant was not effectively using the nipple shield and detached, nipple shield was removed due nipple being misshaped with a blanching vertical line across the middle of the nipple. Worked with on big, open wide gape in the football position. Infant at times latches better than others. At times will latch and suck but with a piston motion and no swallowing or pausing. Infant latched with a big, open wide gape and used rocking motion with suckling. Mother states there's no pain. After 10 minutes adjusted the latch, and RN detached due to the latch being less than 90 degrees. Attempts were made to latch infant with and without the nipple shield to the left breast without an optimal latch. Infant became tired, mother had company and a plan was made to do skin to skin, mother get something to eat, rest and take care of her needs and to call if doesn't wake to breastfeed if it has been 3 hours since the last , if it hurts with , or for any questions, concerns or assistance with learning to breastfeed. Mother voiced understanding.
[2022-07-27 11:51] VITALS: BP 99/55; PULSE 76; RESP 16; TEMP 36.8; O2SAT 100
[2022-07-27 12:12] VITALS: PULSE 76; RESP 16; O2SAT 100
--- NOTE | 2022-07-27 12:37 | PC.NURSE ---
1200 Nipple shield provided to mother due to flat nipples. Reviewed good handwashing, cleaning the nipple shield and application. Discussed with mom the nipple shield precautions, possible complications associated with the risks and benefits. Reviewed practicing with a nipple shield, then without and how to protect the milk supply and production. Mom and baby guide referred to as a resource for using a nipple shield, out-patient services, community resources and when to call a provider. Mom voiced understanding of the importance of hand expression, nipple stimulation and initiating a pumping schedule if infant continues to nurse with the shield. Breast pump provided due to maternal request and use of aid. Instructions given on cleaning, care, usage, that there should be no pain, pumping schedule for milk production, collection, and storage of colostrum. Parents are encouraged to record pumping schedule on the [feeding sheet/pumping log]. Patient was assessed for correct placement, flange size, to pump for comfort and nipple stretching/stimulation for adequate milk production every 3 hours (8 times in 24 hours). Mother voiced understanding of the education shared along with mom and baby guide for additional resource information.
[2022-07-27 16:00] VITALS: BP 96/68; PULSE 76; PULSE 85; RESP 14; RESP 16; TEMP 36.6; O2SAT 100
[2022-07-27 19:30] VITALS: BP 122/71; PULSE 78; RESP 16; TEMP 36.6; O2SAT 99
--- NOTE | 2022-07-28 07:02 | P.PNOB_ITS ---
OB - PN: Subj Subjective Date/time seen: 07/28/22 07:02 Patient comments: no complaints, pain well controlled and tolerating diet [place] baby status: nursing well [place] feeding status: exclusively breast feeding Narrative: No flatus yet. N/V x1 yesterday, but tolerated dinner since. OB - PN: Obj Data Labs CBC & Chem 7: 07/27/22 02:37 OB - PN A/P Plan day: 2 Plan: routine care Comments: Possible DC home tomorrow if passes flatus. Time Spent With Patient Time: Total time spent is greater than 50% in coordination of care (as documented) at patient's floor/unit and/or counseling patient: Exam Narrative: NAD abdomen soft, appropriately tender, incision CDI Extremities nontender with 1+ edema
[2022-07-28 07:35] VITALS: BP 102/57; PULSE 87; RESP 16; TEMP 37.1; O2SAT 100
[2022-07-28] MEDS: IBUPROFEN 600 MG TABLET PO ×2 (08:56→17:34)
[2022-07-28] MEDS: MULTIVIT/MIN/PREN/FOL AC/IRON TABLET 1 TAB PO (08:56)
[2022-07-28] MEDS: HYDROcodone/acetaminophen (*CRX) 5-325 MG TABLET 1 TAB PO ×2 (08:57→17:33)
[2022-07-28] MEDS: DOCUSATE SODIUM 100 MG CAPSULE PO ×2 (08:58→17:34)
[2022-07-28 10:30] VITALS: PULSE 87; RESP 16; O2SAT 100
--- NOTE | 2022-07-28 12:15 | PC.NURSE ---
0855 - Mother verbalizes she is able to independently latch with appropriate positioning/alignment. She denies any nipple discomfort and is responsively . Infant is currently meeting outcomes for weight, output, jaundice and feeding frequencies of 8-12 times in 24 hours. Mother declines any additional assistance/education at this time. Mother is encouraged to call for assistance if her doesn?t latch or there is discomfort with latching. Mother voiced understanding of information shared and mom and baby guide reviewed for additional resource information . Reported to the primary RN.
[2022-07-28 16:17] LABS: Rapid Plasma Reagin Non-Reactive (NonReactive)
[2022-07-28] MEDS: SIMETHICONE 80 MG TAB.CHEW PO (17:33)
[2022-07-28 20:00] VITALS: BP 117/75; PULSE 94; RESP 18; TEMP 36.7; O2SAT 99
--- NOTE | 2022-07-28 23:00 | PC.NURSE ---
Assisted mother with attempting to latch at 2230 feeding. Mother states her left nipple is extremely sore and she is requesting not to use it at this time. There is a small scab present at the tip and a bruise noted above the nipple on the aerola from an ineffective first latch after delivery according to mother. Right nipple noted to have a white compression strip present and tender as well. Mother encouraged to use least sore nipple first with feedings and rotate positions used. Pt using lanolin, hydrogels, and given shells to place in her bra to prevent friction from clothing. Discussed further options of warm compresses if desires at later time. Attempted to latch with and without use of nipple shield in both cross cradle and football position using the right breast. All attempts were unsuccessful to achieve a sustained latch. would take a few sucks on the nipple shield that were very shallow and ineffective in stimulating the breast. Infant's mouth is anatomically small and appears to be opening as wide as she can at this point for 37.4 week gestation infant. The nipple appears to be all the can get in her mouth at this time with no additional breast tissue. Mother is currently offering the breast q3 hours, pumping for 15 minutes, then supplementing with Similac. Infant is voiding and stooling and weight loss is at 7.8% at this time. No jaundice present at this time.
[2022-07-29] MEDS: HYDROcodone/acetaminophen (*CRX) 5-325 MG TABLET 1 TAB PO (00:06)
[2022-07-29] MEDS: IBUPROFEN 600 MG TABLET PO (00:06)
[2022-07-29] MEDS: SIMETHICONE 80 MG TAB.CHEW PO (00:07)
[2022-07-29 07:50] VITALS: BP 108/63; PULSE 81; RESP 18; TEMP 37.4; O2SAT 99
--- NOTE | 2022-07-29 07:56 | PM.OBPNVD ---
OB - PN: Subj Subjective Date/time seen: 07/29/22 07:56 Patient comments: no complaints, pain well controlled, incisional pain, tolerating diet and flatus present OB - PN: Obj Data Labs CBC & Chem 7: 07/27/22 02:37 Labs: Laboratory Results - last 24 hr 07/26/22 15:48 RPR Non-reactive OB - PN A/P Plan day: 3 Plan: routine care, discharge home and other Comments: Incision check in one week. Given precautions Time Spent With Patient Time: Total time spent is greater than 50% in coordination of care (as documented) at patient's floor/unit and/or counseling patient: Exam Const: General: comfortable, no acute distress and alert Resp: Effort & Inspection: normal respiratory effort Auscultation: no crackles, no rales and no rhonchi Cardio: Rate: regular rate Heart sounds: no click, no murmurs and no rubs GI: Inspection: non-distended GI Palp: No Tenderness to palpation present (GI) Auscultation: normal bowel sounds Other: Incision - CDI Extrem: General: normal to inspection, no pedal edema and no calf tenderness
[2022-07-29 08:00] VITALS: PULSE 81; RESP 18; O2SAT 99
--- NOTE | 2022-07-29 08:08 | PM.OBDSVD ---
DS: Admitting Diagnosis Discharge Date 07/29/22 Admitting Diagnosis term DS: Discharge Diagnosis Discharge Diagnosis (1) delivery delivered: Code(s): O82 - Encounter for delivery without indication Status: Acute OB - DS: Summary OB Procedures : None OB Procedures Intrapartum: OB Procedures: : None Peripartum Data Procedures: Procedures Operation Date: 07/26/22 17:30 Actual Procedure Side Surgeon p Section Bilateral Haleigh Up MD Time Spent with Patient Time attestation: Total time spent providing and/or coordinating discharge services: DS: Data Data Completed and Pending Labs on day of discharge: Labs from last 24 hours 07/26/22 15:48 RPR Non-reactive Discharge Plan Discharge Discharging Clinician: Nicola Ramirez Patient Disposition: Home, Self-Care Activity: pelvic rest Diet: regular Patient Instructions: Antibiotic Form Stand Alone Forms: General Discharge Information Follow-up/Referrals: Nicola Ramirez MD [Physician] - Discharge Medications: New hydrocodone-acetaminophen 5-325 mg tablet 1 tablet PO Q4H PRN (Reason: pain) Qty: 25 0RF Continued #2 Tablet 1 tablet PO DAILY ferrous sulfate 142 mg (45 mg iron) Tablet Extended Release 142 mg PO DAILY famotidine [Pepcid] 20 mg Tablet 20 mg PO DAILY Date of admission: 07/26/22 15:00 Primary Care Provider: UNKNOWN,DOCTOR Admitting Provider: Haleigh Up Attending physician on admission: Haleigh Up Condition: Stable
[2022-07-29] MEDS: DOCUSATE SODIUM 100 MG CAPSULE PO (10:45)
[2022-07-29] MEDS: MULTIVIT/MIN/PREN/FOL AC/IRON TABLET 1 TAB PO (10:45)
[2022-07-29] MEDS: MEASLES,MUMPS,RUBELLA VACCINE 0.5 ML VIAL SUB-Q (10:47)
--- NOTE | 2022-07-29 11:14 | PC.NURSE ---
Patient viewed the discharge video Mother & Baby Care, The First Two Weeks . Patient was given the opportunity and encouraged to ask questions. Patient verbalized understanding of information shared and has been given the mother/baby guide for home reference.
--- NOTE | 2022-07-29 14:36 | PC.NURSE ---
[id number] Mother led the conversation with her experience and plan to feed her so far and her ability to attempting to latch optimally and continue with the plan of pumping her breast for a good milk supply and supplementing infant with formula. Reminded parents to use good handwashing technique to prevent infection. Mother is feeding appropriately for growth of and understands stimulating to eat if needed. has had appropriate feedings in the last 24 hours meets the outcomes for weight, output and jaundice at this time. Mother states she is confident to continue feeding her infant at home, when to call for assistance and denies any additional assistance, education at this time and parents state they have good support within the family. Reinforced understanding of milk production, transition of milk, signs of adequate intake, prevention/relief of engorgement, responsive after visualizing feeding cues, the different methods of stimulating infant to breastfeed 2-3 hours after the start of the last feeding, community resources, medication information reviewed per [facility] and when to call a provider using the resource of the mom and baby guide/[facility] website. Mother voiced understanding of the education shared. Reported to the primary RN.
[2022-07-30 10:39] VITALS: BP 104/67; PULSE 101; RESP 16; TEMP 36.6; O2SAT 100
== END 2022-07-29 12:54 | disposition home or self-care (01) | DRG 786 ==
LOC: ANHLDR 15:36 → ANHOB2 07-27 14:57 → ANHLDR 08-02 07:44 → ANHOB2 08-02 07:44
PROVIDERS: Admitting Provider Obstetrics & Gynecology; Visit Provider Obstetrics & Gynecology
PROC: 10D00Z1 Extraction of Products of Conception, Low, Open Approach (ICD-10-PCS; CPT 59514; principal; 2022-07-26 17:30)
DX: O32.1XX0 Maternal care for breech presentation, not applicable or unspecified (principal); K83.1 Obstruction of bile duct; O26.62 Liver and biliary tract disorders in childbirth; Z37.0 Single live birth; Z3A.37 37 weeks gestation of pregnancy; O24.429 Gestational diabetes mellitus in childbirth, unspecified control; Z23 Encounter for immunization; O26.893 Other specified pregnancy related conditions, third trimester; L29.8 Other pruritus
CPT/HCPCS: 36415; 85025; 86592; 86850; 86900; 86901; 90471; 90686; 90710; A9270; G0008; J1885; J2175; J2274; J2370; J2405; J2590; J7120

== ENCOUNTER 2022-12-13 12:27 | Emergency (ER) | payer BC, SELFPAY ==
--- NOTE | ~2022-12-13 | CT_ITS ---
EXAMINATION: CT abdomen pelvis w con INDICATION: Abdominal pain TECHNIQUE: Computed tomographic images of the abdomen and pelvis were obtained after the administrati on of 100 cc of Omnipaque 350 intravenous contrast. The dose-length product (DLP) was 616.37 mGy-cm. Automated exposure control and iterative reconstruction technique were employed. COMPARISON: None available FINDINGS: The lung bases are clear. The heart size is normal. The liver, spleen, pancreas, gallbladde r, and adrenal glands are normal. The kidneys are unremarkable. No pathologically enlarged abdominal or pelvic lymph nodes are identified. No free intraperitoneal gas or evidence of bowel obstruction. T here is mild lumbar spondylosis. There are tiny fat-containing umbilical and suprapatellar hernias. IMPRESSION: 1. No CT correlate for the patient's symptoms. Reviewed, dictated and finalized at location F.
[2022-12-13 12:57] VITALS: BP 131/61; PULSE 97; RESP 20; TEMP 36.8; O2SAT 100
[2022-12-13 13:16] LABS: Basophils Percent Auto 0.2 % (0.2-1.2); Eosinophils Absolute Auto 0.1 K/mm3 (0-0.3); Eosinophils Percent Auto 0.6 % (0-4.4); Hematocrit 44.3 % (37.0-47.0); Hemoglobin 13.9 g/dL (12.0-15.0); Immature Granulocyte Absolute 0.05 K/mm3 (0.00-0.031); Immature Granulocyte Percent A 0.5 % (0-0.5); Lymphocytes Absolute Auto 1.43 K/mm3 (0.9-3.2); Lymphocytes Percent Auto 13.3 % (18.3-44.2); Mean Corpuscular HGB Conc 31.4 g/dl (32-36); Mean Corpuscular Hemoglobin 27.8 pg (26-34); Mean Corpuscular Volume 88.6 fl (80-100); Mean Platelet Volume 9.9 fl (7.4-10.4); Monocytes Absolute Auto 0.7 K/mm3 (0.1-0.6); Monocytes Percent Auto 6.6 % (2.6-8.5); Neutrophils Absolute Auto 8.5 K/mm3 (1.3-6.7); Neutrophils Percent Auto 78.8 % (45.5-73.1); Platelet Count Result 180 k/mm3 (150-375); Red Cell Distribution Width 13.4 % (11.5-14.5); White Blood Count 10.8 K/mm3 (4.5-10.0)
[2022-12-13 13:30] LABS: Alanine Aminotransferase 19 U/L (6-35); Albumin Level 4.7 g/dL (3.5-5.1); Alkaline Phosphatase 119 U/L (38-126); Anion Gap 12 mmol/L (8-16); Aspartate Amino Transferase 21 U/L (14-36); Bilirubin,Total 0.7 mg/dL (0.2-1.3); Blood Urea Nitrogen 15 mg/dL (7-17); Calcium 9.1 mg/dL (8.4-10.2); Carbon Dioxide 26 mmol/L (22-30); Chloride 100 mmol/L (98-107); Estimated CRCL calculation 109 ml/min; Estimated Glomerular Filt Rate > 60; Glucose 90 mg/dL (65-110); Lipase 52 U/L (23-300); Potassium 4.4 mmol/L (3.4-5.0); Sodium 138 mmol/L (137-145)
[2022-12-13 15:57] LABS: Appearance Urine Clear (Clear); Bacteria Urine None Seen /hpf; Bilirubin Urine Negative (Negative); Blood Urine Negative (Negative); Color Urine Yellow (Yellow); Glucose Urine UA Negative (Negative); Ketones Urine 2+ mg/dL (Negative); Leukocyte Esterase Ur Negative LEU/UL (Negative); Nitrate Urine Negative (Negative); Non Pathogenic Casts 0-2; Protein Urine Trace mg/dL (Negative); RBC Urine 0-2 /hpf (0-2); Squamous Epithelial Cell Urine None seen /hpf (Few); Urobilinogen Urine 0.2 mg/dL (<2.0); WBC Urine 0-5 /hpf
[2022-12-13 16:02] LABS: Add Urine Microscopic? YES; Specific Grav Ur 1.037 (1.001-1.035)
[2022-12-13 16:30] VITALS: BP 120/77; PULSE 95; RESP 18; O2SAT 100
--- NOTE | 2022-12-13 18:39 | ED.ABDPAIN ---
HPI - Abdominal Pain General Chief Complaint: Abdominal Pain Stated Complaint: Abdominal pain Time Seen by Provider: 12/13/22 18:36 Source: RN notes reviewed History of Present Illness HPI narrative: Patient presents emergency room from home for abdominal pain. Patient states abdominal pain began approximately 1 week ago. The pain is intermittent and located in the epigastric region. States the pain is described as sharp and stabbing in nature. States that the episode today was more severe than her previous episodes that began approximately 10 AM and subsided after approximately 2 hours. States that she has no fevers or chills she denies any chest pain shortness of breath denies any nausea vomiting diarrhea or any other symptoms of concern. Patient states that the pain is resolved at this time denies any change with eating patient states she did have cholestasis with her approximately 2 months ago Related Data Home Medications Medication Instructions Recorded Confirmed ferrous sulfate 142 mg (45 mg 142 mg PO DAILY 07/20/22 07/26/22 iron) tablet,extended release prenat.vits,efraín,fpm-tlob-zqwnc 1 tablet PO DAILY 07/20/22 07/26/22 famotidine 20 mg tablet (Pepcid) 20 mg PO DAILY 07/26/22 07/26/22 Allergies Allergy/AdvReac Type Severity Reaction Status Date / Time No Known Allergies Allergy Verified 07/20/22 13:38 Review of Systems Review of Systems: Gen.: Denies fevers or chills ENT: Denies congestion Respiratory: Denies shortness of breath or cough CV: Denies chest pain or palpitations GI: See HPI denies burning, urgency, frequency or hematuria Musculoskeletal: Denies back pain or muscle pain Neuro: Denies numbness, tingling, weakness or focal weakness Skin: Denies rash Except as documented, all other systems reviewed and negative [facility] Past Medical History Medical History Breech presentation Gestational diabetes Obesity Ovarian cyst Surgical History Surgical History H/O wisdom tooth extraction History of D&C Family History Family History Sibling Family history of migraine headaches Mother Patient's mother is in good health Grandparent Diabetes mellitus Father Prostate carcinoma Social History Social History Smoking status: Never smoker Second hand tobacco smoke exposure: No Alcohol intake: current Drinks per week: 1 Alcohol use details: STATES NONE SINCE FINDING OUT SHE WAS Substance use: never Substance use type: does not use Lack of Transportation: No Lack of Food: Never True Current Housing: I Have Housing Concerned About Future Housing: No Difficulty Paying Gas/Electric Bills: No Difficulty Paying for Meds: No Currently Unemployed: No Education: Bachelor's Degree Difficulty w/ Childcare or Family Care: No Living arrangements: with family Spiritual care concerns: No Exam Narrative: APPEARANCE: No acute distress, nontoxic, resting in bed HEENT: Normocephalic, atraumatic, OMM RESPIRATORY: No respiratory distress, clear to auscultation bilaterally with no rhonchi wheezing or rales CARDIOVASCULAR: RRR s murmur ABDOMINAL: Soft nondistended tender to palpation epigastric region no tenderness in the right upper, left lower quadrant, right lower quadrant left lower quadrant no rebound or guarding MUSCULOSKELETAl: Moves all extremities. No clubbing, cyanosis or edema. NEURO: Awake and alert. Following commands, speech normal, no focal deficits SKIN:: Warm, dry. Normal Color PSYCHIATRIC: Normal affect/mood Course Course Emergency Course: Discussed with patient results of workup and diagnosis. Discussed need for follow-up with primary care, proper use of medication, and reasons to return to the emergency department. Vielka
[2022-12-13 18:49] VITALS: BP 117/69; PULSE 88; RESP 18; O2SAT 99
[2022-12-13] MEDS: SODIUM CHLORIDE 0.9% IV 1,000 ML 999 ML IV CONT (18:49)
[2022-12-13] MEDS: FAMOTIDINE 20 MG/2 ML VIAL IV PUSH (18:49)
[2022-12-13 20:22] VITALS: BP 134/87; PULSE 76; RESP 16; O2SAT 98
== END 2022-12-13 20:24 | disposition home or self-care (01) ==
PROVIDERS: Emergency Medicine; Emergency Provider Emergency Medicine
DX: R10.13 Epigastric pain (principal); E66.9 Obesity, unspecified; Z68.29 Body mass index [BMI] 29.0-29.9, adult
CPT/HCPCS: 36415; 74177; 80053; 81001; 81025; 83690; 85025; 96361; 96374; 99284; J7030; Q9967

== ENCOUNTER 2022-12-31 09:38 | Outpatient (CLI) | payer BC, SELFPAY ==
--- NOTE | ~2022-12-31 | US_ITS ---
US abdomen limited INDICATION: Epigastric pain PROCEDURE: Realtime right upper abdominal ultrasound. COMPARISON: No prior studies for comparison. FINDINGS: The pancreas is normal without focal mass or pancreatic ductal dilation. Liver echotexture is normal without focal mass or intrahepatic biliary dilatation. There is normal directional flow i n the portal vein. The gallbladder is normal without stones, gallbladder wall thickening or pericholecystic fluid. Comm on bile duct measures 3 mm. No sonographic Tavera's sign. IMPRESSION: 1: Normal limited abdominal ultrasound. Reviewed, dictated and finalized at location B.
--- NOTE | ~2022-12-31 | NM_ITS ---
EXAMINATION: NM hepatobiliary wo pharm DATE: 12/31/2022 13:08 CDT INDICATION: Abdominal pain. COMPARISON: CT dated 12/13/2022. TECHNIQUE: 5 mCi Tc-99m mebrofenin (Choletec) was administered intravenously. Scintigraphic images o f the abdomen were obtained for one hour. At the 1 hour time point, the patient drank 8 oz Ensure, an d imaging was continued for 60 minutes. Gallbladder ejection fraction was calculated by the technolog ist. FINDINGS: There is normal clearance of radiotracer from the blood pool. There is homogeneous tracer u ptake by the liver. Activity progresses to the bowel and gallbladder. The gallbladder ejection fract ion is 54%. Note that with this technique, normal GBEF >= 33%. IMPRESSION: 1. Normal hepatobiliary scan. Reviewed, dictated and finalized at location B.
== END 2022-12-31 09:39 | disposition home or self-care (01) ==
PROVIDERS: Visit Provider Nurse Practitioner
DX: R10.13 Epigastric pain (principal); R10.11 Right upper quadrant pain; R10.9 Unspecified abdominal pain
CPT/HCPCS: 76705; 78226; A9537

== ENCOUNTER 2023-11-09 07:07 | Day surgery (SDC) | payer OTHER, SELFPAY ==
[2023-10-21 14:50] VITALS: BMI 32.8
[2023-11-01 11:04] VITALS: BMI 32.7
[2023-11-09 07:58] VITALS: BMI 33.6
--- NOTE | 2023-11-09 07:58 | P.PNAN_ITS ---
Anes - Initial Pre Proc Eval Procedure: Operation Date: 11/09/23 09:00 Proposed Procedures p Diagnostic Colonoscopy - Juancho Jon MD Date/Time: 11/09/23 07:58 Surgeon: Juancho Jon MD Pre Op Diagnosis: Anal Fissure, Hemorrhage of Anus and Rectum Patient Data Age: 33 Gender: F Height: 1.68 m Weight: 92 kg Allergies Allergy/AdvReac Type Severity Reaction Status Date / Time No Known Allergies Allergy Verified 11/09/23 07:53 Home Medications Medication Instructions Recorded Confirmed Type pharmacy compounding accessory See Rx Instructions miscellaneous 07/12/23 11/09/23 Rx .COMPLEX #1 ea Patient hx anesthesia problems: none Family hx anesthesia problems: none Results Review: All pre-operative results and documents have been reviewed as part of the pre-operative evaluation. [facility] Past Medical History Medical History (Updated 11/09/23 @ 07:59 by Rahat Mccabe DO) Anal fissure Anemia Breech presentation Bright red blood per rectum Epigastric pain Gestational diabetes Obesity Ovarian cyst Psoriasis Right flank pain Right upper quadrant pain Scoliosis Surgical History Surgical History H/O wisdom tooth extraction History of D&C Family History Family History Sibling Family history of migraine headaches Mother Patient's mother is in good health Grandparent Diabetes mellitus Father Prostate carcinoma Social History Social History Smoking status: Never smoker Second hand tobacco smoke exposure: No Alcohol intake: current Drinks per week: 1 Alcohol use details: STATES NONE SINCE FINDING OUT SHE WAS Substance use: never Substance use type: does not use Lack of Transportation: No Lack of Food: Never True Current Housing: I Have Housing Concerned About Future Housing: No Difficulty Paying Gas/Electric Bills: No Difficulty Paying for Meds: No Currently Unemployed: No Education: Bachelor's Degree Difficulty w/ Childcare or Family Care: No Living arrangements: with family Spiritual care concerns: No Anes - Eval Final PreProcedure Day of Procedure 11/09/23 07:58 Patient weight: obese Heart: regular rate and rhythm Lungs: clear to auscultation Airway: Mallampati scale class II Neurological: alert and oriented Last oral intake: >/= 8 hours ASA classification: II Emergent: no Anesthetic plan: proceed Anesthesia type and monitoring: general GIVS and standard monitoring Results Review: All pre-operative results and documents have been reviewed as part of the pre- operative evaluation. Informed Consent: The patient's anesthetic plan and its attendant risks and benefits were discussed with the patient/family/POA. Questions were solicited and answers provided to the satisfaction of the patient/family/POA.
[2023-11-09 07:59] VITALS: BP 124/76; PULSE 86; RESP 18; TEMP 37.2; O2SAT 100
[2023-11-09] MEDS: LACTATED RINGERS 1,000 ML 150 ML IV CONT (08:12)
--- NOTE | 2023-11-09 08:41 | PM.HPGS ---
History of Present Illness History of Present Illness Consent: Risks, benefits, and alternatives have been discussed and questions answered. Patient agrees to proceed with procedure. Chief complaint: Anal Fissure, Hemorrhage of Anus and Rectum Narrative: Chacha Landeros is a 33 year old female presents for colonoscopy. Rectal bleeding. Identified as having an anal fissure. This is done well using nifedipine ointment. To have improved on taking fiber supplementation. However she does not use this regularly. Patient denies any current pain. Previously had bright red blood per rectum that is improved with treatment. On preparation for colonoscopy a small amount of bleeding was identified. Patient's family history is non contribute. patient presents today for colonoscopy. Review of Systems Review of Systems: Review of systems noncontributory. [facility] Past Medical History Medical History (Updated 11/09/23 @ 07:59 by Rahat Mccabe DO) Anal fissure Anemia Breech presentation Bright red blood per rectum Epigastric pain Gestational diabetes Obesity Ovarian cyst Psoriasis Right flank pain Right upper quadrant pain Scoliosis Surgical History Surgical History H/O wisdom tooth extraction History of D&C Family History Family History Sibling Family history of migraine headaches Mother Patient's mother is in good health Grandparent Diabetes mellitus Father Prostate carcinoma Social History Social History Smoking status: Never smoker Second hand tobacco smoke exposure: No Alcohol intake: current Drinks per week: 1 Alcohol use details: STATES NONE SINCE FINDING OUT SHE WAS Substance use: never Substance use type: does not use Lack of Transportation: No Lack of Food: Never True Current Housing: I Have Housing Concerned About Future Housing: No Difficulty Paying Gas/Electric Bills: No Difficulty Paying for Meds: No Currently Unemployed: No Education: Bachelor's Degree Difficulty w/ Childcare or Family Care: No Living arrangements: with family Spiritual care concerns: No Meds Home Medications and Allergies Home Medications Medication Instructions Recorded Confirmed Type pharmacy compounding accessory See Rx Instructions miscellaneous 07/12/23 11/09/23 Rx .COMPLEX #1 ea Allergies Allergy/AdvReac Type Severity Reaction Status Date / Time No Known Allergies Allergy Verified 11/09/23 07:53 Vital Signs Vital Signs - 24 hr 11/09/23 07:59 Temperature 99 F Pulse Rate 86 Respiratory Rate 18 Blood Pressure 124/76 Pulse Oximetry 100 Oxygen Delivery Room Air Exam Narrative: Physical exam reveals patient to be alert. Vital signs stable. HEENT exam is unremarkable. Patient is anicteric. Lungs are clear to auscultation and to percussion. Heart is without murmur or extra sounds. Abdomen bowel sounds are present soft nontender with no organomegaly Digital and external rectal exam normal. Assessment and Plan Assessment and plan (1) Bright red blood per rectum: Code(s): K62.5 - Hemorrhage of anus and rectum Status: Acute Assessment and Plan: Rectal bleeding appears to come from anal fissure. Stool softeners are encourage long-term. (2) Anal fissure: Code(s): K60.2 - Anal fissure, unspecified Status: Acute Assessment and Plan: Anal fissure appears to be related passing hard firm stool. Continued use of stool softener such as Metamucil daily is advised. When this recurs use of nifedipine ointment to the anal canal is advised. She is this is passed. Further recommendations may be given after colonoscopy.
[2023-11-09 09:10] VITALS: BP 102/61; PULSE 90; RESP 15; O2SAT 100
[2023-11-09 09:20] VITALS: BP 105/73; PULSE 90; RESP 15; O2SAT 100
[2023-11-09 09:30] VITALS: BP 115/74; PULSE 90; RESP 15; O2SAT 100
--- NOTE | 2023-11-09 13:20 | WPDANESPN ---
Anes - Prog Note Post-Op Date/Time: 11/09/23 13:20 Cardiovascular status: normal Respiratory status: normal Airway patency: baseline Mental status: baseline Post-Op hydration status: normal Vital Signs: Last Vital Signs Temp 37.2 C 11/09/23 07:59 Pulse 90 11/09/23 09:30 Resp 15 11/09/23 09:30 BP 115/74 11/09/23 09:30 Pulse Ox 100 11/09/23 09:30 O2 Del Method Room Air 11/09/23 09:30 Pain Score (VAS): 0 I/O: Intake & Output 11/08/23 11/09/23 11/09/23 23:59 07:59 15:59 Intake Total 580 Balance 580 Post-procedural complaints: none Patient Feedback: Patient satisfied with anesthetic care. Other Findings: Patient vital signs back to baseline. Patient denies nausea and vomiting. Patient's pain under control. Patient OK for discharge.
== END 2023-11-09 09:40 | disposition home or self-care (01) ==
PROVIDERS: PCP Nurse Practitioner Family; Visit Provider Internal Medicine Gastroenterology
PROC: 0DJD8ZZ Inspection of Lower Intestinal Tract, Via Natural or Artificial Opening Endoscopic (ICD-10-PCS; CPT 45378; principal; 2023-11-09 09:00)
DX: K62.5 Hemorrhage of anus and rectum (principal)
CPT/HCPCS: 45378

== ENCOUNTER 2024-03-14 09:25 | Outpatient (CLI) | payer OTHER, SELFPAY ==
--- NOTE | ~2024-03-14 | MMUS_ITS ---
EXAMINATION: MM diagnostic carrol LT w cassie, US breast LT limited HISTORY: Upper outer left breast pain, left axillary pain TECHNIQUE: 3-D tomosynthesis images of the left breast were performed and synthetic 2-D images were g enerated. CAD analysis was submitted and interpreted. High resolution limited left breast ultrasound was performed. COMPARISON: None FINDINGS: MAMMOGRAPHIC FINDINGS: There are scattered fibroglandular densities. No suspicious mass lesion or distortion seen in the left breast. No suspicious mass, calcification. N o mammographic evidence for malignancy. ULTRASOUND: Scanning the left breast 1:00 region, 6 and 12 cm from the nipple, demonstrates no evidence of solid or cystic lesion. No sonographic abnormality seen in the region scanned. IMPRESSION: No evidence for malignancy. No mammographic or sonographic correlate seen for the area of pain in th e upper, outer left breast. BI-RADS Category 1: Negative Reviewed, dictated and finalized at [facility]. IMPRESSION: No evidence for malignancy. No mammographic or sonographic correlate seen for the area of pain in the upper, outer left breast. BI-RADS Category 1: Negative
== END 2024-03-14 09:26 ==
PROVIDERS: PCP Nurse Practitioner Family; Visit Provider Nurse Practitioner
DX: N64.4 Mastodynia (principal)
CPT/HCPCS: 76642; 77061; 77065; G0279

== ENCOUNTER 2025-08-06 19:17 | Emergency (ER) | payer OTHER, SELFPAY ==
--- NOTE | ~2025-08-06 | CT_ITS ---
EXAMINATION: CT brain wo con DATE: 08/06/2025 19:46 INDICATION: Visual disturbance left side. TECHNIQUE: Computed tomography (CT) of the head was performed without intravenous contrast. The mA was adjusted according to patient size. Iterative reconstruction technique was employed. The dose-length product was 681.00 mGy-cm. COMPARISON: None FINDINGS: No acute intracranial bleed. No ventriculomegaly or midline shift. No acute findings otherwise sinuses and mastoids. IMPRESSION: 1. No acute findings in the noncontrast CT head. Reviewed, dictated and finalized at location T. ROLLING MACHINE TENDER
--- NOTE | ~2025-08-06 | XR_ITS ---
EXAMINATION: XR chest 1V portable DATE: 08/06/2025 20:06 INDICATION: Visual disturbance. TECHNIQUE: A single frontal view of the chest was obtained. COMPARISON: None. FINDINGS: Heart size is normal. Lungs are free of acute processes. IMPRESSION: 1. No acute findings in the portable AP chest. Reviewed, dictated and finalized at location T. PAPER PRESS OPERATOR APPRENTICE
--- NOTE | ~2025-08-06 | CT_ITS ---
EXAMINATION: CT angiogram, head and neck: DATE: 08/06/2025 INDICATION: Left-sided visual disturbance. Left finger numbness. TECHNIQUE: CT angiogram of vertebral and carotid arteries of the neck was performed with 100 cc of IV contrast. Multiplanar and 3-D reconstructions were obtained. were obtained. COMPARISON: CT head without contrast dated 08/06/2025 FINDINGS: Origin of brachiocephalic, left common carotid and left subclavian from the aortic arch are normal. The vertebral arteries are patent in the neck on both sides. No obstructive changes or dissection of carotid arteries are seen in the neck. Vertebral and basilar arteries are patent at the skull base. Posterior cerebral arteries are visualized on both sides. Intracranial portion of internal carotid arteries are patent. The anterior cerebral arteries are patent on both sides. Middle cerebral arteries are patent. Dural venous sinuses are patent. IMPRESSION: 1. Patent vertebral arteries in the neck. No obstructive changes or dissection of carotid arteries are seen in the neck. 2. Intracranial arteries of [place] are patent. Dural venous sinuses are patent. Reviewed, dictated and finalized at location T. OBIOLOGICAL LAB TECHNICIAN IMPRESSION: 1. Patent vertebral arteries in the neck. No obstructive changes or dissection of carotid arteries are seen in the neck. 2. Intracranial arteries of [place] are patent. Dural venous sinuses a re patent.
[2025-08-06 19:22] VITALS: BP 131/76; PULSE 117; RESP 20; TEMP 36.9; O2SAT 100
--- NOTE | 2025-08-06 19:33 | ED_ITS ---
HPI - Eye Problem General Chief complaint: Eye Problems Stated complaint: stroke symptoms Time Seen by Provider: 08/06/25 19:30 Source: patient Mode of arrival: ambulatory Limitations: no limitations History of Present Illness HPI Narrative: This is a 35-year-old female who presents the ED for headache and vision change. Patient states that since 1544 shes had a left sided headache that felt like a migraine she had previously. She does not get migraines normally. She reports that she also had decreased vision to her left periphery that was new. Also reported some numbness to her left 1st and 2nd digit. These resolved within a few minutes. They restarted when she got to Urgent Care earlier. Urgent care advised her to come here for further evaluation. Patient reports that her symptoms do feel better at this time. Related Data Allergies Allergy/AdvReac Type Severity Reaction Status Date / Time No Known Allergies Allergy Verified 11/09/23 07:53 Review of Systems 2 Review of Systems: Gen.: Denies fevers or chills Eyes: Denies eye pain or visual change ENT: Denies congestion Respiratory: Denies shortness of breath or cough CV: Denies chest pain or palpitations GI: Denies abdominal pain nausea, emesis or diarrhea denies burning, urgency, frequency or hematuria Musculoskeletal: Denies back pain or muscle pain Neuro: As per HPI Skin: Denies rash Except as documented, all other systems reviewed and negative [facility] Past Medical History Medical History Anemia Scoliosis Psoriasis Anal fissure Bright red blood per rectum Right flank pain Right upper quadrant pain Epigastric pain Breech presentation Gestational diabetes Ovarian cyst Obesity Surgical History Surgical History History of D&C H/O wisdom tooth extraction Family History Family History Sibling Family history of migraine headaches Mother Patient's mother is in good health Grandparent Diabetes mellitus Father Prostate carcinoma Social History Social History Smoking status: Never smoker Second hand tobacco smoke exposure: No Alcohol intake: current Drinks per week: 1 Alcohol use details: STATES NONE SINCE FINDING OUT SHE WAS Substance use: never Substance use type: does not use Lack of Transportation: No Lack of Food: Never True Current Housing: I Have Housing Concerned About Future Housing: No Difficulty Paying Gas/Electric Bills: No Difficulty Paying for Meds: No Currently Unemployed: No Education: Bachelor's Degree Difficulty w/ Childcare or Family Care: No Living arrangements: with family Spiritual care concerns: No Exam 2 Narrative: APPEARANCE: No acute distress, nontoxic, resting in bed EYES: EOMI HEENT: Normocephalic, atraumatic, OMM RESPIRATORY: No respiratory distress Clear to auscultation bilaterally with no rhonchi wheezing or rales. CARDIOVASCULAR: Regular rate and rhythm without murmurs rubs or gallops. ABDOMINAL: Soft, nontender, nondistended, no rebound or guarding MUSCULOSKELETAl: Moves all extremities. No clubbing, cyanosis or edema. NEURO: Awake and alert. Following commands, speech normal, no focal deficits. NIHSS 0 SKIN:: Warm, dry. No rashes lesions or abrasions PSYCHIATRIC: Normal affect/mood, Course Vital Signs Vital signs: Vital Signs Temperature 98.5 F 08/06/25 19:22 Pulse Rate 117 H 08/06/25 19:22 Respiratory Rate 20 08/06/25 19:22 Blood Pressure 131/76 08/06/25 19:22 Pulse Oximetry 100 08/06/25 19:22 Temperature 98.5 F 08/06/25 19:22 Pulse Rate 91 08/06/25 22:12 Respiratory Rate 14 08/06/25 22:12 Blood Pressure 105/58 L 08/06/25 22:12 Pulse Oximetry 100 08/06/25 22:12 MDM - Eye Problem MDM Narrative Medical decision making narrative: 35-year-old female Presenting for left eye vision change and right posterior headache. On initial evaluation at stroke stop, Patient was in no acute distress afebrile, hemodynamic stable. NIHSS is 0. Patient taken immediately to CT scanner. Differentials include but are not limited to: Migraine, tension headache, mass, electrolyte abnormality, ICH Notable exam findings: NIHSS 0. PERRL EOMI. I personally reviewed the patient's lab result. Notable lab findings: Mild leukocytosis at 12.2. CMP without significant abnormalities. I personally reviewed the patient's images and interpret as follows: Chest x- ray: Normal cardiac silhouette, no consolidations, no pleural effusions, no pulmonary vascular congestion CT head and CTA head/neck showed no acute process. I personally reviewed the patient's EKGs: 08/06/2025 at 8:17 p.m.: Sinus tachycardia rate of 102, normal axis, normal intervals, no acute ST or T-wave changes Suspect the patient had a complex migraine. She was given Toradol, Compazine, Benadryl, 1 L NS bolus and had complete resolution of her symptoms. Patient will be given a referral to Dr. Turner, neurology, for further evaluation management. Patient was agreeable to this plan. Given strict return precautions. Medical Records Attestation: I reviewed the patient's medical records. Lab Data Attestation: I reviewed the patient's lab results. 08/06/25 19:33 08/06/25 19:33 Labs: Lab Results 08/06/25 08/06/25 08/06/25 Range/Units 19:30 19:33 20:39 WBC 12.2 H (4.5-10.0) K/mm3 RBC 5.05 (4.2-5.4) M/mm3 Hgb 14.2 (12.0-15.0) g/dL Hct 44.3 (37.0-47.0) % MCV 87.7 (80-100) fl MCH 28.1 (26-34) pg MCHC 32.1 (32-36) g/dl RDW 13.6 (11.5-14.5) % Plt Count 243 (150-375) k/mm3 MPV 10.5 H (7.4-10.4) fl Immature Gran % (Auto) 0.6 H (0-0.5) % Neut % (Auto) 78.6 H (45.5-73.1) % Lymph % (Auto) 14.4 L (18.3-44.2) % [place] % (Auto) 5.8 (2.6-8.5) % Eos % (Auto) 0.3 (0-4.4) % Baso % (Auto) 0.3 (0.2-1.2) % Lymph # (Auto) 1.75 (0.9-3.2) K/mm3 [place] # (Auto) 0.7 H (0.1-0.6) K/mm3 Eos # (Auto) 0.0 (0-0.3) K/mm3 Baso # (Auto) 0.0 (0.0-0.1) K/mm3 Abs Immat Gran (auto) 0.07 H (0.00-0.031) K/mm3 Absolute Neuts (auto) 9.6 H (1.3-6.7) K/mm3 Absolute Nucleated RBC 0.000 (0.0-0.012) K/mm3 Nucleated RBC % 0.0 (0.0-0.2) % PT 13.2 (11.1-14.7) Seconds INR 1.0 APTT 29.7 (22.3-36.8) Seconds Sodium 136 L (137-145) mmol/L Potassium 4.3 (3.4-5.0) mmol/L Chloride 103 (98-107) mmol/L Carbon Dioxide 20 L (22-30) mmol/L Anion Gap 13 H (4-12) mmol/L BUN 10 D (7-17) mg/dL Creatinine 0.69 L Pending (0.7-1.0) mg/dL Estim Creat Clear Calc 118 Pending ml/min Estimated GFR > 60 Pending (59 - ) Glucose 108 (65-110) mg/dL POC Capillary Glucose 103 (65-105) mg/dl Calcium 9.2 (8.4-10.2) mg/dL Total Bilirubin 0.8 (0.2-1.3) mg/dL AST 37 H (14-36) U/L ALT 35 (6-35) U/L Alkaline Phosphatase 70 (38-126) U/L Troponin I < 0.012 (0.000-0.034) ng/mL Total Protein 9.1 H (6.3-8.2) g/dL Albumin 5.0 (3.5-5.1) g/dL POC Urine HCG, Qual (Negative) 08/06/25 Range/Units 21:39 WBC (4.5-10.0) K/mm3 RBC (4.2-5.4) M/mm3 Hgb (12.0-15.0) g/dL Hct (37.0-47.0) % MCV (80-100) fl MCH (26-34) pg MCHC (32-36) g/dl RDW (11.5-14.5) % Plt Count (150-375) k/mm3 MPV (7.4-10.4) fl Immature Gran % (Auto) (0-0.5) % Neut % (Auto) (45.5-73.1) % Lymph % (Auto) (18.3-44.2) % [place] % (Auto) (2.6-8.5) % Eos % (Auto) (0-4.4) % Baso % (Auto) (0.2-1.2) % Lymph # (Auto) (0.9-3.2) K/mm3 [place] # (Auto) (0.1-0.6) K/mm3 Eos # (Auto) (0-0.3) K/mm3 Baso # (Auto) (0.0-0.1) K/mm3 Abs Immat Gran (auto) (0.00-0.031) K/mm3 Absolute Neuts (auto) (1.3-6.7) K/mm3 Absolute Nucleated RBC (0.0-0.012) K/mm3 Nucleated RBC % (0.0-0.2) % PT (11.1-14.7) Seconds INR APTT (22.3-36.8) Seconds Sodium (137-145) mmol/L Potassium (3.4-5.0) mmol/L Chloride (98-107) mmol/L Carbon Dioxide (22-30) mmol/L Anion Gap (4-12) mmol/L BUN (7-17) mg/dL Creatinine (0.7-1.0) mg/dL Estim Creat Clear Calc ml/min Estimated GFR (59 - ) Glucose (65-110) mg/dL POC Capillary Glucose (65-105) mg/dl Calcium (8.4-10.2) mg/dL Total Bilirubin (0.2-1.3) mg/dL AST (14-36) U/L ALT (6-35) U/L Alkaline Phosphatase (38-126) U/L Troponin I (0.000-0.034) ng/mL Total Protein (6.3-8.2) g/dL Albumin (3.5-5.1) g/dL POC Urine HCG, Qual Negative (Negative) Imaging Data Radiologist's impression: Impressions Head CT 08/06/25 19:56 IMPRESSION: 1. No acute findings in the noncontrast CT head. Head/Neck CTA 08/06/25 19:58 IMPRESSION: 1. Patent vertebral arteries in the neck. No obstructive changes or dissection of carotid arteries are seen in the neck. 2. Intracranial arteries of [place] are patent. Dural venous sinuses are patent. Chest X-Ray 08/06/25 20:06 IMPRESSION: 1. No acute findings in the portable AP chest. Discharge Plan Discharge Clinical Impression: Migraine headache with aura Qualifiers: Status migrainosus presence: without status migrainosus Intractability: not intractable Qualified Code(s): G43.109 - Migraine with aura, not intractable, without status migrainosus Patient Disposition: Home Condition: Stable Instructions: Antibiotic Form, Migraine Headache (ED) Additional Instructions: You likely had a migraine headache that caused symptoms similar to his stroke. Your workup was reassuring. You were given a referral to Dr. Turner, neurology, follow-up with his office the next week for re-evaluation. Return to ED for any new worsening symptoms. Patient Language: [place]ic Prescriptions: No Action pharmacy compounding accessory Misc See Rx Instructions miscellaneous .COMPLEX Qty: 1 0RF Rx Instructions: Lidocaine 2%, Nifedipine 0.2%, Hydrocortisone 2.5% Apply pea sized amount AR 3-4 times per day for 8 weeks Mix 1:1:1 Follow-up/Referrals: Eleuterio,Lu Gibson, EDUCATION AND TRAINING MANAGER [Primary Care Provider, Family Practice]
--- NOTE | 2025-08-06 19:39 | ECG_ITS ---
Test Date: 2025-08-06 20:17:04 Measurements Intervals [place] Rate: 102 P: 55 [place]: 169 QRS: 18 QRSD: 80 T: 22 QT: 347 QTc: 452 Interpretive Statements SINUS TACHYCARDIA ABNORMAL RHYTHM ECG No previous ECG available for comparison Electronically Signed On 08-06-2025 22:33:01 METAL FURNACE OPERATOR by Steven Chavez D.O
[2025-08-06 19:44] LABS: Hematocrit 44.3 % (37.0-47.0); Hemoglobin 14.2 g/dL (12.0-15.0); Immature Granulocyte Percent A 0.6 % (0-0.5); Lymphocytes Absolute Auto 1.75 K/mm3 (0.9-3.2); Mean Corpuscular HGB Conc 32.1 g/dl (32-36); Mean Corpuscular Hemoglobin 28.1 pg (26-34); Mean Corpuscular Volume 87.7 fl (80-100); Nucleated Red Blood Cells Absolute Auto 0.000 K/mm3 (0.0-0.012); Nucleated Red Blood Cells Perc 0.0 % (0.0-0.2); Platelet Count Result 243 k/mm3 (150-375); Red Blood Count 5.05 M/mm3 (4.2-5.4); White Blood Count 12.2 K/mm3 (4.5-10.0)
[2025-08-06 19:49] LABS: INR 1.0; Prothrombin Time 13.2 Seconds (11.1-14.7)
[2025-08-06 19:50] LABS: Alanine Aminotransferase 35 U/L (6-35); Albumin Level 5.0 g/dL (3.5-5.1); Alkaline Phosphatase 70 U/L (38-126); Anion Gap 13 mmol/L (4-12); Aspartate Amino Transferase 37 U/L (14-36); Bilirubin,Total 0.8 mg/dL (0.2-1.3); Blood Urea Nitrogen 10 mg/dL (7-17); Calcium 9.2 mg/dL (8.4-10.2); Carbon Dioxide 20 mmol/L (22-30); Chloride 103 mmol/L (98-107); Estimated CRCL calculation 118 ml/min; Estimated Glomerular Filt Rate > 60; Glucose 108 mg/dL (65-110); Partial Thromboplastin Time 29.7 Seconds (22.3-36.8); Potassium 4.3 mmol/L (3.4-5.0); Sodium 136 mmol/L (137-145); Total Protein 9.1 g/dL (6.3-8.2)
[2025-08-06 20:04] LABS: Troponin I < 0.012 ng/mL (0.000-0.034)
[2025-08-06 20:24] VITALS: BP 116/62; PULSE 101; RESP 16; O2SAT 99
[2025-08-06] MEDS: SODIUM CHLORIDE 0.9% IV 1,000 ML 999 ML IV CONT (20:37)
[2025-08-06] MEDS: KETOROLAC 30 MG/ML VIAL (*BKC) IV PUSH (20:38)
[2025-08-06] MEDS: PROCHLORPERAZINE EDISYLATE 10 MG/2 ML VIAL IV PUSH (20:39)
[2025-08-06 21:40] LABS: BEDSIDEPREGUCG Negative (Negative)
[2025-08-06 22:11] VITALS: BP 105/58; PULSE 91; RESP 14; O2SAT 100
[2025-08-06 22:12] VITALS: BP 105/58; PULSE 91; RESP 14; O2SAT 100
--- OUTSIDE RECORDS SUMMARY | 2025-08-07 04:51 | XMS_ITS | Data Portability ---
Author Organization [facility] [place] Address [address] [place] [address] Assessment Encounter Date Assessment Date Assessment LastModified by Organization Details LastModified Time 11/08/2022 11/08/2022 Pt unable to do 2 hour gtt. Plans to do this summer when school is out. [email or web address] Not available 11/08/2022 14:47:22 07/26/2023 07/26/2023 Annual gynecological exam performed. Patient will come back in a year unless there are new symptoms. [email or web address] Not available 07/26/2023 09:02:17 04/17/2025 04/17/2025 Annual gynecological exam performed. Patient will come back in a year unless there are new symptoms. Not available 04/17/2025 09:32:22 Plan of Treatment Reminders Order Date Submit Date Provider Last Modified By Organization Details Last Modified Time Details Appointments None recorded. Lab pap, IG + HR HPV - HPV regardless but if HPV is positive need subtyping 16,18/45 2024 025 [facility] (Lab), [address], [place], [address], 5 15:04:32 HbA1c (hemoglobin A1c), blood 2023 024 [facility] (Lab), [address], [place], [address], 4 04:37:51 anti-durán crow hormone (amh), serum 2023 024 [facility] (Lab), [address], [place], [address], 4 04:37:50 hormone panel, serum or plasma 2023 024 [facility] (Lab), [address], [place], [address], 4 04:37:50 TSH, serum or plasma 2023 024 [facility] (Lab), [address], [place], [address], 4 04:37:50 CMP, serum or plasma 2022 023 [facility] (Lab), [address], [place], [address], 3 04:50:40 lipid panel, blood 2022 023 [facility] (Lab), [address], [place], [address], 3 04:50:39 HbA1c (hemoglobin A1c), blood 2022 023 [facility] (Lab), [address], [place], [address], 3 04:50:43 CBC w/ auto diff 2022 023 [facility] (Lab), [address], [place], [address], 3 04:50:42 TSH, serum or plasma 2022 023 [facility] (Lab), [address], [place], [address], 3 04:50:41 vitamin D, 25-hydroxy, total, serum 2022 023 [facility] (Lab), [address], [place], [address], 3 04:50:41 Referral None recorded. Procedures None recorded. Surgeries None recorded. Imaging MAMMO, diagnostic, digital, bilateral - left breast pain extending to axilla 2023 024 [facility], [address], [place], [address], 4 05:01:05 US, breast, unilateral, w/ axilla 2023 024 [facility], [address], [place], [address], 4 12:22:01 Medication Orders Zoloft 50 mg tablet 2022 023 [email or web address] [id number], [address] [facility], [place], [place], [id number], 3 10:09:44 Patient TargetsNo targets recorded. Patient InstructionsNo instructions recorded. Reason for Referral None Reported. Results Created Date Observation Date Name Description Value Unit Range Abnormal Flag Note LastModifiedBy Organization Detail LastModifiedTime 07/26/20 23 07/26/2023 LIPID PANEL ,AMA (LDL- CALC) total cholesterol 179 mg/dL 0-199 Not Available [facility] (Lab) [address], [place], [address], 07/27/2023 04:50:39 07/26/20 23 07/26/2023 LIPID PANEL ,AMA (LDL- CALC) triglyceride s 53 mg/dL 0.00-1 50.00 NCEP Refer ence Value s for Trigl yceri zina: Roya l: <150 mg/dL Borde rline High: 150 - 199 mg/dL High: 200 - 499 mg/dL Very High: >/= 500 mg/dL Not Available [facility] (Lab) [address], [place], [address], 07/27/2023 04:50:39 07/26/20 23 07/26/2023 LIPID PANEL ,AMA (LDL- CALC) HDL cholesterol 51 mg/dL >40 Not Available [facility] (Lab) [address], [place], [address], 07/27/2023 04:50:39 07/26/20 23 07/26/2023 LIPID PANEL ,AMA (LDL- CALC) LDL cholesterol 114 mg/dL 0-99 high Cutof f value s recom lynn d by the Natio nal Jody stero l Educa tion Progr am: EDIL ABLE: Jody stero l <200 mg/dL LDL <100 mg/dL BORDE RLINE : Jody stero l 200-2 39 mg/dL LDL 101-1 59 mg/dL HIGHE R RISK: Jody stero l >240 mg/dL LDL >160 mg/dL , HDL <40 mg/dL Not Available [facility] (Lab) [address], [place], [address], 07/27/2023 04:50:39 07/26/20 23 07/26/2023 LIPID PANEL ,AMA (LDL- CALC) non-HDL cholesterol 128 mg/dL no refere nce range A reaso nable goal for non-H DL jody stero l is one that is 30 mg/dL highe r than the LDL jody stero l goal. Not Available [facility] (Lab) [address] [place], [address], 07/27/2023 04:50:39 07/26/20 23 07/26/2023 LIPID PANEL ,AMA (LDL- CALC) chol/HDL ratio 3.5 . 0.0-5. 0 On January 11, 2023, [facility] labor samuel edwards ed the equat ion for calcu latin g estim ated low-d ensit y lipop rotei n-cho leste rol (LDL- C) from the Cornelio fernandezald equat ion to the Kimberly salvador/[place] equat ion. This new equat ion is only valid for lipid panel s with trigl yceri zina < 400 mg/dL . Studi es have demon verenice ed that this new equat ion will impro ve the accur acy of LDL-C , espec ially in scena [place] when LDL-C shea ntrat ions are relat ively low (< 100 mg/dL ), trigl yceri zina are eleva yola, or patie nt is non-f astin g. Refer ences : - Kimberly salvador, Walter Krause, Adam Shrestha , Whit horton, Que Londono, Que peña, Will Shukla. Jared ramirez , and Scotty Hathaway . 2013. Comp ariso n of a Novel Metho d vs the Fried shelley Equat ion for Estim ating Low-D ensit y Lipop rotei n Jody stero l Level s from the Stand rodolfo Lipid Profi le. GAUDENCIO: The Journ al of the Ameri can Medic al Assoc iatio n 310 (19): 2060- . - Rishabh martinez ar V, Tiff J, Chago ar A, Letty M, Melissa e R, Jun diop E, [facility] RS, Rivas SR, Kimberly salvador SS. Fast ing Versu s Nonfa sting and Low-D ensit y Lipop rotei n Jody stero l Accur acy. Circu latio n. 2017Sep 20;137 (1):1 0-19. Not Available [facility] (Lab) [address], [place], [address], 07/27/2023 04:50:39 07/26/20 23 07/26/2023 CMP(C OMPRE HENSI VE METAB OLIC PANEL ) sodium 137 mmol/ L 133-14 6 Not Available [facility] (Lab) [address], [place], [address], 07/27/2023 04:50:40 07/26/20 23 07/26/2023 CMP(C OMPRE HENSI VE METAB OLIC PANEL ) potassium 4.3 mmol/ L 3.5-5. 1 Not Available [facility] (Lab) [address], [place], [address], 07/27/2023 04:50:40 07/26/20 23 07/26/2023 CMP(C OMPRE HENSI VE METAB OLIC PANEL ) chloride 104 mmol/ L 98-107 Not Available [facility] (Lab) [address], [place], [address], 07/27/2023 04:50:40 07/26/20 23 07/26/2023 CMP(C OMPRE HENSI VE METAB OLIC PANEL ) carbon dioxide 27 mmol/ L 21-31 Not Available [facility] (Lab) [address], [place], [address], 07/27/2023 04:50:40 07/26/20 23 07/26/2023 CMP(C OMPRE HENSI VE METAB OLIC PANEL ) anion gap 6 mmol/ L 4-13 Not Available [facility] (Lab) [address], [place], [address], 07/27/2023 04:50:40 07/26/20 23 07/26/2023 CMP(C OMPRE HENSI VE METAB OLIC PANEL ) blood urea nitrogen 11 mg/dL 7-25 Not Available [facility] (Lab) [address], [place], [address], 07/27/2023 04:50:40 07/26/20 23 07/26/2023 CMP(C OMPRE HENSI VE METAB OLIC PANEL ) creatinine 0.72 mg/dL 0.60-1 .30 Not Available [facility] (Lab) [address], [place], [address], 07/27/2023 04:50:40 07/26/20 23 07/26/2023 CMP(C OMPRE HENSI VE METAB OLIC PANEL ) egfrcr (CKD-epi 2020) >90 mL/mi n/1.7 3_m2 >=60 Not Available [facility] (Lab) [address], [place], [address], 07/27/2023 04:50:40 07/26/20 23 07/26/2023 CMP(C OMPRE HENSI VE METAB OLIC PANEL ) calcium 9.2 mg/dL 8.3-10 .5 Not Available [facility] (Lab) [address], [place], [address], 07/27/2023 04:50:40 07/26/20 23 07/26/2023 CMP(C OMPRE HENSI VE METAB OLIC PANEL ) glucose 91 mg/dL 70-100 Not Available [facility] (Lab) [address], [place], [address], 07/27/2023 04:50:40 07/26/20 23 07/26/2023 CMP(C OMPRE HENSI VE METAB OLIC PANEL ) protein, total 7.3 g/dL 6.4-8. 3 Not Available [facility] (Lab) [address], [place], [address], 07/27/2023 04:50:40 07/26/20 23 07/26/2023 CMP(C OMPRE HENSI VE METAB OLIC PANEL ) albumin 4.5 g/dL 3.5-5. 0 Not Available [facility] (Lab) [address], [place], [address], 07/27/2023 04:50:40 07/26/20 23 07/26/2023 CMP(C OMPRE HENSI VE METAB OLIC PANEL ) ALT 14 units /L 9-43 Not Available [facility] (Lab) [address], [place], [address], 07/27/2023 04:50:40 07/26/20 23 07/26/2023 CMP(C OMPRE HENSI VE METAB OLIC PANEL ) alkaline phosphatase 69 units /L 34-104 Not Available [facility] (Lab) [address], [place], [address], 07/27/2023 04:50:40 07/26/20 23 07/26/2023 CMP(C OMPRE HENSI VE METAB OLIC PANEL ) AST 16 units /L 13-39 Not Available [facility] (Lab) [address], [place], [address], 07/27/2023 04:50:40 07/26/20 23 07/26/2023 CMP(C OMPRE HENSI VE METAB OLIC PANEL ) bilirubin, total 0.5 mg/dL 0.2-1. 2 Not Available [facility] (Lab) [address], [place], [address], 07/27/2023 04:50:40 07/26/20 23 07/26/2023 TSH, REFLE X FREE T4 TSH 1.01 uIU/m L 0.30-5 .33 Not Available [facility] (Lab) [address], [place], [address], 07/27/2023 04:50:40 07/26/20 23 07/26/2023 VITAM IN D, 25-OH (TOTA L D2/D3 ) vitamin D, 25-hydroxy, total 28.7 NG/mL 30.0-1 00.0 low Sugge stive of Defic iency : <20 ng/mL Sugge stive of Insuf ficie ncy: 20-29 ng/mL Sugge stive of Suffi cienc y: 30-10 0 ng/mL Sugge stive of Toxic ity: >150 ng/mL Not Available [facility] (Lab) [address], [place], [address], 07/27/2023 04:50:41 07/26/20 23 07/26/2023 BLOOD SMEAR EXAM, RBC MORPH OLOGY RBC morphology Review ed normal Plate let clump s remai n after effor ts to resol ve. Resul ts shoul d be inter prete d with cauti on Not Available [facility] (Lab) [address], [place], [address], 07/27/2023 04:50:42 11/07/07/26/2023 BLOOD SMEAR EXAM, RBC MORPH OLOGY platelet morphology Normal Not Available [facility] (Lab) [address], [place], [address], 07/27/2023 04:50:42 07/26/20 23 07/26/2023 CBC W/DIF F WBC 6.6 10'3/ uL 3.6-10 .2 Not Available [facility] (Lab) [address], [place], [address], 07/27/2023 04:50:42 07/26/20 23 07/26/2023 CBC W/DIF F RBC 4.86 10'6/ uL (based on docume nted legal sex) 4.10-5 .30 Not Available [facility] (Lab) [address], [place], [address], 07/27/2023 04:50:42 07/26/20 23 07/26/2023 CBC W/DIF F HGB 13.5 g/dL (based on docume nted legal sex) 11.9-1 5.8 Not Available [facility] (Lab) [address], [place], [address], 07/27/2023 04:50:42 07/26/20 23 07/26/2023 CBC W/DIF F HCT 42.1 % (based on docume nted legal sex) 37.4-4 8.3 Not Available [facility] (Lab) [address], [place], [address], 07/27/2023 04:50:42 07/26/20 23 07/26/2023 CBC W/DIF F MCV 86.6 fL 82.0-9 9.0 Not Available [facility] (Lab) [address], [place], [address], 07/27/2023 04:50:42 07/26/20 23 07/26/2023 CBC W/DIF F MCH 27.8 pg 27.0-3 3.0 Not Available [facility] (Lab) [address], [place], [address], 07/27/2023 04:50:42 07/26/20 23 07/26/2023 CBC W/DIF F MCHC 32.1 g/dL 32.0-3 6.0 Not Available [facility] (Lab) [address], [place], [address], 07/27/2023 04:50:42 07/26/20 23 07/26/2023 CBC W/DIF F RDW 13.2 % 11.0-1 5.0 Not Available [facility] (Lab) [address], [place], [address], 07/27/2023 04:50:42 07/26/20 23 07/26/2023 CBC W/DIF F plt 278 10'3/ uL 150-45 0 Not Available [facility] (Lab) [address], [place], [address], 07/27/2023 04:50:42 07/26/20 23 07/26/2023 CBC W/DIF F MPV 10.2 fL 9.8-12 .7 Not Available [facility] (Lab) [address], [place], [address], 07/27/2023 04:50:42 07/26/20 23 07/26/2023 CBC W/DIF F NRBC's 0.0 % 0 Not Available [facility] (Lab) [address], [place], [address], 07/27/2023 04:50:42 07/26/20 23 07/26/2023 CBC W/DIF F absolute NRBCs 0.0 10'3/ uL 0 Not Available [facility] (Lab) [address], [place], [address], 07/27/2023 04:50:42 07/26/20 23 07/26/2023 CBC W/DIF F neutrophils 61.3 % 37.0-7 2.0 Not Available [facility] (Lab) [address], [place], [address], 07/27/2023 04:50:42 07/26/20 23 07/26/2023 CBC W/DIF F lymphocytes 29.7 % 16.0-4 8.0 Not Available [facility] (Lab) [address], [place], [address], 07/27/2023 04:50:42 07/26/20 23 07/26/2023 CBC W/DIF F monocytes 7.0 % 4.0-14 .0 Not Available [facility] (Lab) [address], [place], [address], 07/27/2023 04:50:42 07/26/20 23 07/26/2023 CBC W/DIF F eosinophils 1.2 % 0.0-9. 0 Not Available [facility] (Lab) [address], [place], [address], 07/27/2023 04:50:42 07/26/20 23 07/26/2023 CBC W/DIF F basophils 0.3 % 0.0-2. 0 Not Available [facility] (Lab) [address], [place], [address], 07/27/2023 04:50:42 07/26/20 23 07/26/2023 CBC W/DIF F immature granulocytes 0.5 % no define d refere nce range Not Available [facility] (Lab) [address], [place], [address], 07/27/2023 04:50:42 07/26/20 23 07/26/2023 CBC W/DIF F absolute neutrophils 4.0 10'3/ uL 1.1-6. 0 Not Available [facility] (Lab) [address], [place], [address], 07/27/2023 04:50:42 07/26/20 23 07/26/2023 CBC W/DIF F absolute lymphocytes 2.0 10'3/ uL 0.7-3. 4 Not Available [facility] (Lab) [address], [place], [address], 07/27/2023 04:50:42 07/26/20 23 07/26/2023 CBC W/DIF F absolute monocytes 0.5 10'3/ uL 0.3-1. 0 Not Available [facility] (Lab) [address], [place], [address], 07/27/2023 04:50:42 07/26/20 23 07/26/2023 CBC W/DIF F absolute eosinophils 0.1 10'3/ uL 0.0-0. 6 Not Available [facility] (Lab) [address], [place], [address], 07/27/2023 04:50:42 07/26/20 23 07/26/2023 CBC W/DIF F absolute basophils 0.0 10'3/ uL 0.0-0. 1 Not Available [facility] (Lab) [address], [place], [address], 07/27/2023 04:50:42 07/26/20 23 07/26/2023 CBC W/DIF F absolute immature granulocytes 0.0 10'3/ uL 0.00-0 .10 Not Available [facility] (Lab) [address], [place], [address], 07/27/2023 04:50:42 07/26/20 23 07/26/2023 HEMOG LOBIN A1C hemoglobin A1C 5.4 % 0-5.6 The Ameri can Diabe shannon Assoc iatio n recom mends that a prima ry goal of thera eagle carvajal be a HBA1C of < 7% and that physi rosemary carvajal reeva luate the treat ment regim en in patie nts with HBA1C value s consi stent ly > 8%. <5.7% Roya l 5.7 - 6.4% Incre ased risk for diabe shannon >=6.5 % Diagn ostic of diabe shannon <7.0% Goal of thera py >8.0% Actio n sugge sted Not Available [facility] (Lab) [address], [place], [address], 07/27/2023 04:50:42 07/26/20 23 07/26/2023 IMAGE GUIDE D PAP AND HPV REGAR DLESS image guided Pap, HPV regardless of Pap result SEE RESULT S BELOW CASE REPOR T: Cytol ogy Gynec ologi timo Repor t Case: [id number] Autho norrisjeniffer sam Provi chris: Melanie Dill, BERTRAND Colle cted: 07/26 1053 Order ing Locat ion: [place] Path[facility] Recei nallely: 07/27 0317 First Scree n: Sonia Hathaway, CT Speci men: Scree alfred Pap - Image d, Cervi x STATE MENT OF ADEQU ACY: Satis facto ry for evalu ation Trans forma tion zone compo nent prese nt FINAL DIAGN OSIS: Negat edvin for Intra epith elial Lesio n or Nick waters (NIL) . Elect ava beebe moustapha d by Sonia Hathaway, CT on 2022 at 11:39 AM ----- ----- ----- ----- ----- ----- ----- ----- ----- ----- ----- ----- ----- ----- ----- ----- ----- ---- HPV RESUL TS: HPV mRNA E6/E7 : No HPV mRNA Detec yola NOTE: This high risk HPV mRNA assay detec ts fourt een high- risk HPV types (16, 18, 31, 33, 35, 39, 45, 51, 52, 56, 58, 59, 66, 68) witho ut diffe renti ation . COMME NT: This speci men was revie wed by a Cytot echno logis t and/o r Patho logis t (as indic ated in this repor t) after evalu ation using the Thinp rep Imagi ng Syste m. CLINI TIMO INFOR MATIO N: Menst rual Statu s: LMP (if appli cable ): Clini timo Histo ry/Pr eviou s Pap: Type of Neopl darshan (if appli cable ): Signi fican t Clini timo Findi ngs: Other Histo ry: Hormo diana (if appli cable ): PAP EDUCA TIMUR L NOTE: The Pap Test is a scree alfred test with an inher ent false negat edvin rate. Liqui d-bas ed sampl ing may decre ase, but will not elimi merlyn, false negat edvin resul ts. A negat edvin resul t does not precl ude the prese nce and/o r devel opmen t of disea se, since the prese nce of abnor mal cells in the sampl e depen ds on the locat ion of the lesio n and sampl ing techn ique. Denia nued regul ar scree alfred is the best metho d of cance r preve ntion . If repor yola cytol ogic findi ng do not corre late with physi timo and/o r histo rical findi ngs, furth er inves tigat ion is recom lynn d, as clini micah swartz nted. Not Available [facility] (Lab) [address], [place], [address], 07/28/2023 12:43:00 03/28/20 24 03/28/2024 TSH, REFLE X FREE T4 TSH 1.09 uIU/m L 0.30-5 .33 Not Available [facility] (Lab) [address] [place], [address], 03/29/2024 04:37:49 03/28/2003/28/2024 ANTIM STEPHANIE MARTINEZN HORMO NE (AMH) anti-mulleri an hormone (amh) 1.07 NG/mL Femal e Refer ence Range s 20-24 years : 1.22 - 11.70 ng/mL 25-29 years : 0.89 - 9.85 ng/mL 30-34 years : 0.58 - 8.13 ng/mL 35-39 years : 0.15 - 7.49 ng/mL 40-44 years : 0.03 - 5.47 ng/mL The follo wing resul ts were obtai janice with the Ele[employer] ys assay . Resul ts from assay s of other manuf actur es canno t be used inter [facility]. Not Available [facility] (Lab) [address] [place], [address], 03/29/2024 04:37:50 03/28/20 24 03/28/2024 FSH, LH, ESTRA DIOL estradiol 62.0 pg/mL This assay was perfo rmed using [employer] ratio n reage nts and test kits. Value s obtai janice with other assay metho ds or kits canno t be used inter [facility] [place] . Femal e Estra diol Range s: Folli cular phasE 12.4- 233 pg/mL Ovula tion phasE 41.0- 398 pg/mL Lutea l phasE 22.3- 341 pg/mL Postm enopa usal <5-13 8 pg/mL Healt hy Pregn ant Women 1st Trime ster 154-3 243 pg/mL 2nd Trime ster 1561- 21139 pg/mL 3rd Trime ster 8525- >3000 0 pg/mL Not Available [facility] (Lab) [address] [place], [address], 03/29/2024 04:37:50 03/28/20 24 03/28/2024 FSH, LH, ESTRA DIOL FSH 6.0 mIU/m L This assay was perfo rmed using [employer] reage nts and test kits. Value s obtai janice with other assay metho ds or kits canno t be used inter [facility] [place] . Femal es Folli cular : 3.5-1 2.5 mIU/m L Ovula tion: 4.7-2 1.5 mIU/m L Lutea l: 1.7-7 .7 mIU/m L Postm enopa use: 25.8- 134.8 mIU/m L Not Available [facility] (Lab) [address] [place], [address], 03/29/2024 04:37:50 03/28/20 24 03/28/2024 FSH, LH, ESTRA DIOL LH 7.0 mIU/m L This assay was perfo rmed using [employer] n reage nts and test kits. Value s obtai janice with other assay metho ds or kits canno t be used inter [facility] . Femal es Mid-F ollic ular: 2.4-1 2.6 mIU/m L Mid-C ycle: 14.0- 95.6 mIU/m L Mid-L uteal : 1.0-1 1.4 mIU/m L Postm enopa use: 7.7-5 8.5 mIU/m L Not Available [facility] (Lab) [address], [place], [address], 03/29/2024 04:37:50 03/28/20 24 03/28/2024 HEMOG LOBIN A1C hemoglobin A1C 5.3 % 0-5.6 The Ameri can Diabe shannon Assoc iatio n recom mends that a prima ry goal of thera py shoul d be a HBA1C of < 7% and that physi cians shoul d reeva luate the treat ment regim en in patie nts with HBA1C value s consi stent ly > 8%. <5.7% Roya l 5.7 - 6.4% Incre ased risk for diabe shannon >=6.5 % Diagn ostic of diabe shannon <7.0% Goal of thera py >8.0% Actio n sugge sted Not Available [facility] (Lab) [address], [place], [address], 03/29/2024 04:37:51 05/10/20 24 05/10/2024 PROGE STERO NE progesterone 8.99 NG/mL This assay was perfo rmed using [employer] n reage nts and test kits. Value s obtai janice with other assay metho ds or kits canno t be used inter [facility] . Femal e Proge stero ne Range s: Folli cular phase 0.06- 0.89 ng/mL Ovula tion phase 0.12- 12.00 ng/mL Lutea l phase 1.83- 23.90 ng/mL Postm enopa usal <0.05 -0.13 ng/mL Healt hy Pregn ant Women 1st Trime ster 11.0- 44.30 2nd Trime ster 25.40 -83.3 0 3rd Trime ster 58.70 -214. 00 Not Available [facility] (Lab) [address] [place], [address], 05/11/2024 03:39:33 06/07/20 24 06/07/2024 PROGE STERO NE progesterone 4.28 NG/mL This assay was perfo rmed using [employer] n reage nts and test kits. Value s obtai janice with other assay metho ds or kits canno t be used inter [facility] [place] . Femal e Proge stero ne Range s: Folli cular phase 0.06- 0.89 ng/mL Ovula tion phase 0.12- 12.00 ng/mL Lutea l phase 1.83- 23.90 ng/mL Postm enopa usal <0.05 -0.13 ng[facility] Trime ster 11.0- 44.30 2nd Trime ster 25.40 -83.3 0 3rd Trime ster 58.70 -214. 00 Not Available [facility] (Lab) [address] [place], [address], 06/08/2024 11:52:05 07/04/20 24 07/04/2024 PROGE STERO NE progesterone 7.19 NG/mL This assay was perfo rmed using [employer] ratio n reage nts and test kits. Value s obtai janice with other assay metho ds or kits canno t be used inter [facility] . Femal e Proge stero ne Range s: Folli cular phase 0.06- 0.89 ng/mL Ovula tion phase 0.12- 12.00 ng/mL Lutea l phase 1.83- 23.90 ng/mL Postm enopa usal <0.05 -0.13 ng/mL Healt hy Pregn ant Women 1st Trime ster 11.0- 44.30 2nd Trime ster 25.40 -83.3 0 3rd Trime ster 58.70 -214. 00 Not Available [facility] (Lab) [address] [facility], [place], [address], 07/05/2024 11:56:30 04/10/20 25 04/10/2025 PROGE STERO NE progesterone 10.90 NG/mL This assay was perfo rmed using [employer] ratio n reage nts and test kits. Value s obtai janice with other assay metho ds or kits canno t be used inter [facility] . Femal e Proge stero ne Range s: Folli cular phase 0.06- 0.89 ng/mL Ovula tion phase 0.12- 12.00 ng/mL Lutea l phase 1.83- 23.90 ng/mL Postm enopa usal <0.05 -0.13 ng/mL Healt hy Pregn ant Women 1st Trime ster 11.0- 44.30 2nd Trime ster 25.40 -83.3 0 3rd Trime ster 58.70 -214. 00 Not Available [facility] (Lab) [address], [place], [address], 04/11/2025 07:59:24 04/17/20 25 04/17/2025 IMAGE GUIDE D PAP AND HPV REGAR DLESS image guided Pap, HPV regardless of Pap result SEE RESULT S BELOW CASE REPOR T: Cytol ogy Gynec ologi timo Repor t Case: [id number] Autho anastacio g Provi chris: Melanie Dill, BERTRAND Colle cted: 04/17 1027 Order ing Locat ion: [place] [facility] Recei nallely: 04/18 0735 First Scree n: Fern Escoto , CT Speci men: Scree alfred Pap - Image d, Cervi x STATE MENT OF ADEQU ACY: Satis facto ry for evalu ation Trans forma tion zone compo nent absen t ----- ----- ----- ----- ----- ----- ----- ----- ----- ----- ----- ----- ----- ----- ----- ----- ----- ---- FINAL DIAGN OSIS: Negat edvin for Intra epith elial Ovidio salvador or Nick waters (NIL) . Elect ava carvajal by Fern Escoto CT on 025 at 1359 CDT ----- ----- ----- ----- ----- ----- ----- ----- ----- ----- ----- ----- ----- ----- ----- ----- ----- ---- HPV RESUL TS: HPV mRNA E6/E7 : No HPV mRNA Detec yola NOTE: This high risk HPV mRNA assay detec ts fourt een high- risk HPV types (16, 18, 31, 33, 35, 39, 45, 51, 52, 56, 58, 59, 66, 68) witho ut diffe renti ation . COMME NT: This speci men was revie wed by a Cytot echno logis t and/o r Patho logis t (as indic ated in this repor t) after evalu ation using the Thinp rep Imagi ng Syste m. CLINI TIMO INFOR MATIO N: Menst rual Statu s: LMP (if appli cable ): Clini timo Histo ry/Pr eviou s Pap: Type of Neopl darshan (if appli cable ): Signi fickarine t Clini timo Findi ngs: Other Histo ry: Hormo diana (if appli cable ): PAP EDUCA TIMUR L NOTE: The Pap Test is a scree alfred test with an inher ent false negat edvin rate. Liqui d-bas ed sampl ing may decre ase, but will not elimi merlyn, false negat edvin resul ts. A negat edvin resul t does not precl ude the prese nce and/o r devel opmen t of disea se, since the prese nce of abnor mal cells in the sampl e depen ds on the locat ion of the lesio n and sampl ing techn ique. Denia nued regul ar scree alfred is the best metho d of cance r preve ntion . If repor yola cytol ogic findi ng do not corre late with physi timo and/o r histo rical findi ngs, furth er inves tigat ion is recom lynn d, as clini micah swartz nted. Not Available [facility] (Lab) [address], [place], [address], 04/21/2025 15:04:32 03/14/20 24 03/14/2024 US, yolande t, uniljaylan teral , w/ axill a No observ ation record ed. [facility] [address], [place], [address], 03/14/2024 15:57:58 Result Notes None recorded. Problems Name Problem SNOMED Code Status Onset Date Resolution Date Notes Provider Name and Address Organization Details Recorded Time Antenata l care: history of infertil ity [id number] Completed letrozol e preg Chacha lester, [facility] 3 15:19:47 Carrier of cystic fibrosis gene mutation [id number] Completed FOB NEGATIVE 03/10/22 Chacha lester, [facility] 3 15:19:47 Blood glucose outside referenc e range 533438561 Completed borderli ne 3hr GTT - Checking BS QID - review at 06/04 appt to see if she rules in for GDM or not! Haleigh Up MD [address], [place], [address], [place] [facility] 2 14:04:27 Gestatio nal diabetes mellitus class A1 [id number] Completed Chacha lester, [facility] 3 15:19:47 Breech presenta tion [id number] Completed CS 39w [facility], [facility] 3 15:19:47 Speciali zed medical examinat ion Completed 201111/20/2020 Gynecolo gical Examinat ion;Mark rded Elsewher e: No Locat ion: [facility] S ource: EHR Crane Operator Cab mark: N Liviati ce ID: 0001 Carlo lable Time: 11:00:00 AM Chasity lester, [facility] 1 16:35:22 Atypical squamous cells of undeterm ined signific ance on cervical Papanico laou smear [id number] Completed 201211/20/2020 Papanico laou smear of cervix with atypical squamous cells of undeterm ined signific ance (ASC-US) ;Recorde d Elsewher e: No Locat ion: [facility] S ource: EHR Crane Operator Cab mark: N Liviati ce ID: 0001 Carlo lable Time: 02:00:00 PM Chasity lester, [facility] 1 16:35:08 Cytologi c finding Completed 201211/20/2020 Papanico laou smear of cervix with low grade squamous intraepi thelial lesion (LGSIL); Recorded Elsewher e: No Locat ion: [facility] S ource: EHR Crane Operator Cab mark: N Liviati ce ID: 0001 Carlo lable Time: 02:00:00 PM [facility], [facility] 1 16:35:12 Left lower quadrant pain [id number] Completed 201311/20/2020 Abdomina l pain, left lower quadrant ;Recorde d Elsewher e: No Locat ion: [facility] S ource: EHR Crane Operator Cab mark: N Liviati ce ID: 0001 Carlo lable Time: 03:15:00 PM Chasity lester, [facility] 16:35:15 Conducti on disorder of the heart [id number] Completed 201311/20/2020 Bradycar brenna;Mark rded Elsewher e: No Locat ion: [facility] S ource: EHR Crane Operator Cab mark: N Liviati ce ID: 0001 Carlo lable Time: 02:23:43 PM Chasity lester, [facility] 16:38:44 Screenin g for malignan t neoplasm of cervix Completed 201311/20/2020 Screenin g for malignan t neoplasm s of the cervix;R ecorded Elsewher e: No Locat ion: [facility] S ource: EHR Crane Operator Cab mark: N Harris ce ID: 0001 Carlo lable Time: 11:15:00 AM Chasity lester, [facility] 16:35:17 Speciali zed medical examinat ion Completed 201311/20/2020 Other specifie d chlamydi al diseases ;Recorde d Elsewher e: No Locat ion: [facility] S ource: EHR Crane Operator Cab mark: N Harris ce ID: 0001 Carlo lable Time: 11:15:00 AM Chasity lester, [facility] 16:35:23 Venereal disease screenin g Completed 201311/20/2020 Screenin g examinat ion for venereal disease; Recorded Elsewher e: No Locat ion: [facility] S ource: EHR Crane Operator Cab mark: N Liviati ce ID: 0001 Carlo lable Time: 11:15:00 AM Chasity lester, [facility] 16:35:[address] Concept Completed 201411/20/2020 Encntr for general adult medical exam w/o abnormal findings ;Recorde d Elsewher e: No [facility] Crane Operator Cab mark: N Liviati ce ID: 0001 Carlo lable Time: 09:00:00 [facility] 16:35:19 Syphilis test finding [id number] Completed 201411/20/2020 Encntr screen for infectio ns w sexl mode of transmis s;Record ed Elsewher e: No Locat ion: [facility] S ource: EHR Crane Operator Cab mark: N Liviati ce ID: 0001 Carlo lable Time: 09:00:00 AM Chasity Prabhakar [facility] 16:35:25 [facility] 25-29 [facility] 60[facility] Completed 201407/17/2021 [facility] 15:40:43 Infectio n screenin g Completed 201411/20/2020 Encounte r for screenin g for oth infec/pa rastc diseases ;Recorde d Elsewher e: No Locat ion: [facility] S ource: EHR Crane Operator Cab mark: N Liviati ce ID: 0001 Carlo lable Time: 09:00:00 AM [facility] 16:35:[address] Concept Completed 201711/20/2020 Encntr for plate stacker hand exam (general ) (routine ) w/o abn findings ;Recorde d Elsewher e: No [facility]: EHR Crane Operator Cab mark: N Liviati ce ID: 0001 Carlo lable Time: 11:00:00 AM Chasity lester [facility] 16:35:20 Abnormal cervical Papanico laou smear [id number] Completed 202007/17/2021 Renetta Eubanks [facility] 1 15:40:41 Psoriasi s of vulva 059214737 Completed 2021 Chacha [facility], [facility] 3 15:19:47 Problem Notes None recorded. Procedures Surgical History Date Name Laterality Status Provider Name and Address Organization Details Recorded Time 2021 SECTION (SURG) completed [facility] 07/27/2022 10:37:38 2020 SUCTION DILATION & CURETTAGE (SURG) completed [facility] 09/08/2021 10:05:04 2020 hysterosalpingography completed Lisa Bridges [facility] 06/17/2021 17:54:39 2012 Colposcopy completed Renetta Eubanks [facility] 07/20/2021 18:02:51 2012 [facility] 18:04:49 Imaging Results None recorded. Procedure Notes None recorded. Medical Equipment None Reported. Allergies No known drug allergies Medications Name Sig Start Date Stop Date Status Note LastModified by Organization Details LastModified Time fluconazo le 100 mg tablet TAKE 1 TABLET BY MOUTH EVERY DAY 11/08 completed Not Available Not Available Not Available hydrocodo ne 5 mg-acetam inophen 325 mg tablet TAKE 1 TABLET BY MOUTH EVERY 4 HOURS NEEDED FOR PAIN 08/04 completed Not Available Not Available Not Available tacrolimu s 0.1 % topical ointment APPLY A THIN LAYER TO THE AFFECTED AREA ON FACE TWICE DAILY NEEDED active Not Available Not Available No t Available triamcino lone acetonide 0.1 % topical ointment APPLY A THIN LAYER TO THE AFFECTED AREA(S) BY TOPICAL ROUTE 2 TIMES PER DAY for 14 days, then once per day 02/20 completed Not Available Not Available Not Available progester one micronize d 200 mg capsule TAKE 1 CAPSULE BY MOUTH EVERY DAY active Not Available Not Available No t Available clobetaso l 0.05 % topical ointment active Not Available Not Available Not Available letrozole 2.5 mg tablet TAKE 3 TABLETS BY MOUTH DAILY FOR DAYS 3-7 OF CYCLE active Not Available Not Available No t Available Vitamin D2 1,250 mcg (50,000 unit) capsule take 1 capsule by oral route every week 11/20 completed Prescrib ed Elsewher e: No Locat ion: [facility] odify By: kristin Colon ncounter DateTime : 03/07/20 18 10:16:42 AM Not Available Not Available Not Available betametha sone dipropion ate 0.05 % lotion APPLY THIN LAYER TOPICALL Y TO THE SCALP TWICE DAILY NEEDED active Not Available Not Available No t Available sertralin e 50 mg tablet TAKE 1 TABLET BY MOUTH EVERY DAY 07/26 completed Not Available Not Available Not Available Ortho Tri-Cycle n (28) 0.18 mg(7)/0.2 15mg(7)/0 .25 mg(7)-0.0 35 mg tablet TAKE 1 TABLET BY MOUTH EVERY DAY 02/28 completed Prescrib ed Elsewher e: No Locat ion: Michele colon [facility] odify By: sterling Roth nter DateTime : 11/26/19 17 02:30:00 PM Not Available Not Available Not Available Microlet Lancet 08/04 completed Not Available Not Available Not Available Ortho-Cyc cherelle (28) 0.25 mg-35 mcg tablet take 1 tablet by oral route every day 04/30 completed Prescrib ed Elsewher e: No Locat ion: [facility] odify By: sterling Landaverdeou nter DateTime : 02/29/20 18 11:00:00 AM Not Available Not Available Not Available iron 07/26 completed Not Available Not Available Not Available 02/20 completed Not Available Not Available Not Available MARCOS (28) 3 mg-0.02 mg tablet take 1 tablet by oral route every day 12/09 completed Prescrib ed Elsewher e: No [facility] By: mikesam Colon cayla DateTime : 11/25/19 12 09:26:45 PM Not Available Not Available Not Available sodium,po tassium,m ag sulfates 17.5 gram-3.13 gram-1.6 gram oral soln 02/20 completed Not Available Not Available Not Available + DHA active Not Available Not Available Not Available Contour Next Test Strips 08/04 completed Not Available Not Available Not Available Contour Next EZ Meter TEST BLOOD SUGAR FOUR TIMES DAILY 08/04 completed Not Available Not Available Not Available Lomedia 24 Fe 1 mg-20 mcg (24)/75 mg (4) tablet take 1 tablet by oral route every day 09/10 completed Prescrib kelly Curry e: No Locat ion: [facility] odify By: smcaley Jose A r DateTime : 07/31/20 14 11:15:00 AM Not Available Not Available Not Available OneTouch Delica Plus Lancet 33 gauge 08/04 completed Not Available Not Available Not Available Vitals Date Recorded Body height Body mass index (BMI) Body weight Systolic And Diastolic Provider Name and Address Organization Details Last Updated DateTime 11/08/2022 172.72 cm 27.4 kg/m2 95578.63 g 112/73 mm[Hg] Renetta Eubanks [facility] 11/08/2022 14:29:16 Date Recorded Body height Body mass index (BMI) Body weight Systolic And Diastolic Provider Name and Address Organization Details Last Updated DateTime 02/21/2024 172.72 cm 33.1 kg/m2 63526.14 g 126/85 mm[Hg] Val Stephen [facility] 02/21/2024 15:14:09 Date Recorded Body height Body mass index (BMI) Body weight Systolic And Diastolic Provider Name and Address Organization Details Last Updated DateTime 03/28/2024 172.72 cm 33.2 kg/m2 02524.29 g 136/82 mm[Hg] Nancy Zambrano [facility] 03/28/2024 16:23:18 Date Recorded Body height Body mass index (BMI) Body weight Systolic And Diastolic Provider Name and Address Organization Details Last Updated DateTime 04/17/2025 172.72 cm 33.3 kg/m2 33713.73 g 115/77 mm[Hg] Aga Gramajo [facility] 04/17/2025 09:33:09 Date Recorded Body height Body mass index (BMI) Body weight Systolic And Diastolic Provider Name and Address Organization Details Last Updated DateTime 07/26/2023 172.72 cm 30.9 kg/m2 54136.25 g 125/86 mm[Hg] Thalia Mirza [facility] 07/26/2023 10:09:31 Social History Question Answer Notes LastModified by Organizat ion Details LastModified Time Tobacco Smoking Status Never Smoker Renetta lester, [facility] 11/08/2022 14:29:41 Do You Have An Advance Directive? No [email or web address] Information n ot available 11/08/2022 Are You Blind Or Do You Have Difficulty Seeing? No [email or web address] Information n ot available 10/18/2022 What Is Your Level Of Caffeine Consumption? Occasional Information not available 10/18/2022 How Much Tobacco Do You Chew? None Information not available 10/18/2022 In The 14 Days Before Symptom Onset, Have You Had Close Contact With A Laboratory-confirm ed COVID-19 While That Case Was Ill? No [email or web address] Information n ot available 10/18/2022 In The 14 Days Before Symptom Onset, Have You Had Close Contact With A Person Who Is Under Investigation For COVID-19 While That Person Was Ill? No [email or web address] Information not available 10/18/2022 Have You Been To An Area Known To Be High Risk For COVID-19? No [email or web address] Information not available 10/18/2022 Are You Deaf Or Do You Have Serious Difficulty Hearing? No [email or web address] Information not available 10/18/2022 What Is The Highest Grade Or Level Of School You Have Completed Or The Highest Degree You Have Received? [id number] [email or web address] Information not available 11/08/2022 Are There Any Guns Present In Your Home? Yes [email or web address] Information not available 10/18/2022 Do You Use Protection During Sex? No [email or web address] Information not available 10/18/2022 Do You Use Your Seat Belt Or Car Seat Routinely? Yes [email or web address] Information not available 10/18/2022 Do You Have Smoke And Carbon Monoxide Detectors In Your Home? Yes [email or web address] Information not available 10/18/2022 How Much Tobacco Do You Smoke? No [email or web address] Information not available 10/18/2022 Do You Use Sunscreen Routinely? No [email or web address] Information not available 10/18/2022 Have You Used IV Drugs? No [email or web address] Information not available 10/18/2022 Do You Have Difficulty Walking Or Climbing Stairs? No [email or web address] Information not available 11/08/2022 Sex: Unknown Functional Status Question Answer Note LastModified by Organizat ion Details LastModified Time Do you use any illicit or recreational drugs? No Information not available 10/18/2022 What is your level of alcohol consumption? Occasional [email or web address] Information not available 11/08/2022 Are you able to walk independently without assistance or assistive devices? YESWOREST [email or web address] Information not available 10/18/2022 Are you able to care for yourself independently? Yes [email or web address] Information not available 11/08/2022 What is your occupation? Teacher [email or web address] Information not available 11/08/2022 Do you have difficulty dressing, bathing, grooming, or toileting? No [email or web address] Information not available 11/08/2022 What is your exercise level? Occasional [email or web address] Information not available 10/18/2022 Mental Status None recorded. Family History Relationship Description Onset Age of this Age Resolved Age Notes LastModified by Organization Details LastModified Time Maternal Grandfather Heart disease [email or web address] Not available 2020 16:41:03 Maternal Grandmother Diabetes mellitus [email or web address] Not available 2020 16:41:16 Paternal Grandmother Malignant neoplasm of ovary [email or web address] Not available 2020 16:41:29 Paternal Grandmother Diabetes mellitus [email or web address] Not available 2020 16:41:38 Medical History Condition Response Allergies (Food, seasonal, environmental ) N Other N Breast Cancer N Drug/Latex Allergies/Reactions N Blood Transfusion N Dermatologic Disorders N Lung Disease N Defects or Inherited Disease N Breast Problem N Gestational Diabetes Y Hematologic disorders N Anesthesia Complications N History of STI N Deep Vein Thrombosis N Polycystic ovary syndrome N Anxiety Disorder N Autoimmune disease N Arthritis N Infertility Y Polyps N Acid Reflux (GERD) N History of abnormal pap Y Cancer N Stroke N Varicosities N Neurologic/Epilepsy N Endometriosis N High Cholesterol N Headaches N Fibromyalgia N Kidney Disease N Heart Problems N Kidney or Bladder Problems N Thyroid Problems N GI Problems N Eating Disorder N Anemia N Art (IVF or FET) N Psychiatric Illness N Ovarian Cancer N Diabetes N Pulmonary (TB, Asthma) N Hepatitis/Liver Disease N No Past Medical History N Eczema N Urinary Tract Infection N Abuse/Domestic Violence N Asthma N Trauma/Violence N Depression/ depression N Heart Disease N Pre-Eclampsia N Hypertension N Osteoporosis N Thrombophilias N Gynecological History Statement/Question Response Date of Last Mammogram Flow Moderate Date of LMP 2025 N Was last menstrual period normal Y STIs/STDs N Date of Last Colonoscopy Abnormal Pap Y On BCP's at Conception? N HPV Vaccine Y Colposcopy 06/19/2013 Duration of Flow (days) 3 Current Control Method Seeking Pre gnancy Age at First Child 30 Are cycles usually normal Y Frequency of Cycle (Q days) 29 Sexually Active? Y Menses Monthly Y Date of DEXA bone scan Age of first menstrual cycle 13 Date of Last Pap Smear Sexual Problems? N LMP Definite N 09/19/2012 Obstetrics History GPAL:G 2 P 1 0 1 1 Type Value Full Term 1 Spontaneous 1 Living 1 Total 2 Past Encounters Encounter ID Performer Location Encounter Start Date Encounter Closed Date Diagnosis/Indication Diagnosis SNOMED-CT Code Diagnosis ICD10 Code Diagnosis IMO Codes Diagnosis Note [id number] Sravanthi Wheeler CNM [facility] [address] [address] 11/20/2020 16:40:47 11/20/2020 17:33:26 Gynecologic examination [id number] Z01.419 Take Calcium with Vitamin D 1200mg daily if not receiving in daily diet. It is strongly advised to have an annual flu shot and up can obtain at most pharmacies . If you have not had a TDap shot in the last 10 years you should obtain one as well. Discussed with patient & provided with informatio n regarding Gardisil vaccine to prevent the 4 strains for HPV that cause cervical cancer if under age 26. Encourage safe sexual practices, to use condoms and limit partners if not already in a monogamous relationsh ip. Do monthly self breast exams. Have mammogram yearly or every other year depending on family history. BRCA testing is now available for patients with strong genetic history of female cancer. If interested contact the office. Engage in daily exercise of low impact aerobic exercise 45-60 minutes 4-5 times weekly. Avoid tobacco and illicit drugs as well as using moderation with alcohol intake less than 1-2 8 oz beverages daily. This lifestyle behavior pattern will lead to less health conditions and longer life span. If BMI greater than 25 weight watchers or dietary consult advised. Encouraged with dha and folic acid. Patient received above instructio ns, and questions have been answered. If you have any questions please call or respond to this email. Patient was made aware of the patient portal and may obtain a paper copy of today's plan if desired. Irregular periods 202012 07 N92.6 Cycles 24-28 days. Facial hair growth. Discussed pcos briefly. Pt is not interested in contracept ion as she is trying to conceive. Labs and return for follow up. Excessive growth of facial hair [id number] L68.2 [id number] Jose Ramirez MD [facility] [address],[facility] [place] [address] 12/05/2020 15:22:04 12/05/2020 16:31:18 Female hirsutism [id number] L68.0 this patient is a 30-year-ol d female presents for concerns about fertility. She also has concerns about polycystic ovarian syndrome. We discussed abnormal uterine bleeding and amenorrhea . We discussed polycystic ovarian syndrome. We discussed the diagnosis. We discussed the underlying disease process. We discussed laboratory evaluation . We discussed her ultrasound and laboratory results. We discussed the prevention of endometria l cancer. We discussed protecting the endometriu m and how that is carried out. We discussed treatment in the context of a desired . We discussed medical treatment. We discussed the risk associated with PCOS and long-term health outcomes. The patient has regular periods. She has premenstru al symptoms prior to her menses. She clearly has ovulatory cycles that are reproducib le and predictabl e. She is not likely PCOS but reports hirsutism. We talked about treatment of hirsutism. Talked about menstrual cycle In detail. Talked about infertilit y evaluation . She has not been milky get for 7 months. She does not quite meet the diagnostic criteria for infertilit y. We talked about the basic evaluation . We talked about hysterosal pingogram. We talked about labs , talked about semen analysis. we spent considerab le time together discussing multiple complex issues. the patient is nila vargas hysterosal pingogram. She is going to check with her insurance to see if it is covered. If it is covered she is going to wait till she is unable to get in 1 year. She will call to schedule hysterosal pingogram if she wants to proceed at this time. Polycystic ovary syndrome [id number] E28.2 [id number] Jose Ramirez MD [facility] [address],[place] [address] 06/11/2021 10:10:07 06/11/2021 10:14:39 [id number] Jose Ramirez MD [facility] [address],[facility] [place] [address] 06/17/2021 17:46:31 06/18/2021 12:30:22 Female infertility [id number] N97.9 This patient is a 31-year-ol d female with infertilit y presents for follow-up after hysterosal pingogram. The hysterosal pingogram was normal. She has regular periods and has premenstru al symptoms that are marked. We discussed the results. We discussed what to do going forward. She was given a semen analysis kit. She was given instructio ns. We talked about treatment. Talked about IU OI and induction of ovulation. She will follow up with Arabella Pierre. We spent more than 15 minutes discussing her fertility situation. The results. The subsequent steps and the treatment. [id number] Arabella Pierre CNM [facility] [address],[facility] [place] [address] 07/17/2021 14:57:13 07/17/2021 16:05:02 Trying to conceive [id number] Z31.9 [id number] MD Aldo Lopez [address],[place] [address] 09/01/2021 14:55:57 09/01/2021 15:31:38 Missed miscarriage [id number] O02.1 Z3A.08 [id number] MD Stacey [place] [address],[place] [address] 09/01/2021 14:56:40 09/01/2021 16:16:59 Missed miscarriage 16869032 O02.1 Z3A.08 Female infertility 22033 08 N97.9 [id number] Haleigh Up MD [facility] [address],[place] [address] 09/08/2021 10:03:00 09/08/2021 10:04:18 [id number] Haleigh Up MD [facility] [address],[place] [address] 09/15/2021 10:55:08 09/15/2021 12:05:42 Missed miscarriage [id number] O02.1 Z3A.08 Complete miscarriage 156 317440 O03.9 Postoperative visit [id number] 56607 Z09 [id number] Haleigh Up MD [facility] [address],[place] [address] 10/09/2021 14:43:47 10/09/2021 15:14:52 Female infertility 0152714 N97.9 [id number] Haleigh Up MD [facility] [address],[place] [address] 10/16/2021 16:52:24 10/16/2021 17:32:54 Female infertility [id number] N97.9 [id number] Jose Ramirez MD [facility] [address],[place] [address] 12/21/2021 13:55:23 12/21/2021 14:34:42 Uncertain viability of [id number] O36.80X0 Z3A.01 [id number] Haleigh Up MD [facility] [address],[place] [address] 01/06/2022 09:21:48 01/06/2022 10:11:15 [id number] MD Aldo Lopez [address],[place] [address] 01/08/2022 09:57:35 01/08/2022 13:53:57 test positive [id number] Z32.01 care: history of infertility [id number] O09.01 Psoriasis of vulva 06472 4003 L40.9 [id number] MD Aldo Lopez [address],[place] [address] 02/01/2022 17:31:30 02/01/2022 18:16:20 screening [id number] Z36.82 [id number] MD Aldo Lopez [address],[place] [address] 02/01/2022 17:33:18 02/02/2022 15:59:50 Psoriasis of vulva 486585990 L40.9 Routine an tenatal care 052510542 Z34.91 [id number] MD Aldo Lopez [address],[place] [address] 03/01/2022 11:06:21 03/01/2022 11:58:28 Routine care [id number] Z34.91 [id number] MD Aldo Lopez [address],[place] [address] 03/31/2022 10:25:36 03/31/2022 11:52:51 screening for malformation 436604368 Z36.3 [id number] MD Aldo Lopez [address],[place] [address] 03/31/2022 10:26:32 03/31/2022 12:03:43 Routine care [id number] Z34.91 [id number] MD Aldo Lopez [address],[place] [address] 04/30/2022 10:27:26 05/03/2022 15:00:53 Routine care 158412255 Z34.91 [id number] MD Aldo Lopez [address],[place] [address] 05/21/2022 11:35:02 05/21/2022 12:17:37 Routine care [id number] Z34.91 [id number] Haleigh Up MD [facility] [address],[place] [address] 06/04/2022 15:11:35 06/04/2022 16:56:49 Gestational diabetes mellitus class A1 49733156 O24.410 Pt here for diet teaching. Pt was ruled in for GDM today after appt with Dr. Up. 3hr GTT was borderline and after checking BS QID a few pp sugars and two fasting elevated. Went over ideal ranges for FBS and pp BS. Went over carb counting and carb ranges for each meal/snack . Gave ideas for foods to eat for meals/snac ks. Discussed drink options and to avoid soda and juice. Pt has a meat aversion this . Went over alternativ es for protein besides meat. Told pt she can go online to ADA for meal options or to look up low carb meal recipes online for ideas as well. Told pt to continue checking BS QID and adjusting diet to follow low carb diet to try to keep BS within normal range. Pt aware if sugars aren't controlled by diet we would discuss starting insulin. Went over NST schedule with pt and importance of keeping these appts and checking BS for her and baby's health. Pts questions were answered and pt verbalized understand ing. marva RN [id number] Haleigh Up MD [facility] [address],[place] [address] 06/04/2022 15:56:18 06/04/2022 16:54:17 Gestational diabetes mellitus class A1 [id number] O24.410 Pt here for diet teaching. Pt was ruled in for GDM today after appt with Dr. Up. 3hr GTT was borderline and after checking BS QID a few pp sugars and one fasting elevated. Went over ideal ranges for FBS and pp BS. Went over carb counting and carb ranges for each meal/snack . Gave ideas for foods to eat for meals/snac ks. Discussed drink options and to avoid soda and juice. Pt has a meat aversion this . Went over alternativ es for protein besides meat. Told pt she can go online to ADA for meal options or to look up low carb meal recipes online for ideas as well. Told pt to continue checking BS QID and adjusting diet to follow low carb diet to try to keep BS within normal range. Pt aware if sugars aren't controlled by diet we would discuss starting insulin. Went over NST schedule with pt and importance of keeping these appts and checking BS for her and baby's health. Pts questions were answered and pt verbalized understand ing. CALEB durham [id number] Haleigh Up MD [facility] [address],[place] [address] 06/14/2022 13:49:12 06/14/2022 14:31:16 Gestational diabetes mellitus class A1 [id number] O24.410 Pt here for diet teaching. Pt was ruled in for GDM today after appt with Dr. Up. 3hr GTT was borderline and after checking BS QID a few pp sugars and one fasting elevated. Went over ideal ranges for FBS and pp BS. Went over carb counting and carb ranges for each meal/snack . Gave ideas for foods to eat for meals/snac ks. Discussed drink options and to avoid soda and juice. Pt has a meat aversion this . Went over alternativ es for protein besides meat. Told pt she can go online to ADA for meal options or to look up low carb meal recipes online for ideas as well. Told pt to continue checking BS QID and adjusting diet to follow low carb diet to try to keep BS within normal range. Pt aware if sugars aren't controlled by diet we would discuss starting insulin. Went over NST schedule with pt and importance of keeping these appts and checking BS for her and baby's health. Pts questions were answered and pt verbalized understand ing. CALEB durham [id number] Haleigh Up MD [facility] [address],[place] [address] 06/14/2022 13:52:31 06/14/2022 14:56:53 Gestational diabetes mellitus class A1 [id number] O24.410 Z3A.31 Pt here for diet teaching. Pt was ruled in for GDM today after appt with Dr. Up. 3hr GTT was borderline and after checking BS QID a few pp sugars and one fasting elevated. Went over ideal ranges for FBS and pp BS. Went over carb counting and carb ranges for each meal/snack . Gave ideas for foods to eat for meals/snac ks. Discussed drink options and to avoid soda and juice. Pt has a meat aversion this . Went over alternativ es for protein besides meat. Told pt she can go online to ADA for meal options or to look up low carb meal recipes online for ideas as well. Told pt to continue checking BS QID and adjusting diet to follow low carb diet to try to keep BS within normal range. Pt aware if sugars aren't controlled by diet we would discuss starting insulin. Went over NST schedule with pt and importance of keeping these appts and checking BS for her and baby's health. Pts questions were answered and pt verbalized understand ing. CALEB durham [id number] Haleigh Up MD [facility] [address],[place] [address] 06/14/2022 13:53:04 06/14/2022 17:05:23 Gestational diabetes mellitus class A1 [id number] O24.410 Z3A.31 [id number] MD Aldo Lopez [address],[place] [address] 06/22/2022 16:55:46 06/22/2022 17:26:59 Gestational diabetes mellitus class A1 56660847 O24.410 Z3A.31 [id number] MD Aldo Lopez [address],[place] [address] 06/22/2022 16:56:09 06/22/2022 18:10:39 Gestational diabetes mellitus class A1 95078337 O24.410 Z3A.32 [id number] Haleigh Up MD [facility] [address],[place] [address] 06/22/2022 16:56:32 06/28/2022 16:15:37 Gestational diabetes mellitus class A1 65137093 O24.410 Z3A.32 [id number] Haleigh Up MD [facility] [address],[place] [address] 06/29/2022 15:59:37 06/29/2022 16:39:02 Gestational diabetes mellitus class A1 90943302 O24.410 Z3A.32 [id number] Haleigh Up MD [facility] [address],[place] [address] 06/29/2022 16:00:01 06/29/2022 17:32:34 Gestational diabetes mellitus class A1 31878117 O24.410 Z3A.33 [id number] Haleigh Up MD [facility] [address],[place] [address] 06/29/2022 16:00:22 06/30/2022 16:24:52 Gestational diabetes mellitus class A1 88321971 O24.410 Z3A.33 [id number] Haleigh Up MD [facility] [address],[place] [address] 07/06/2022 16:42:28 07/06/2022 17:39:56 Gestational diabetes mellitus class A1 75367179 O24.410 Z3A.33 [id number] Haleigh Up MD [facility] [address],[place] [address] 07/06/2022 16:42:50 07/06/2022 18:12:03 Gestational diabetes mellitus class A1 61309134 O24.410 Z3A.34 [id number] Haleigh Up MD [facility] [address],[place] [address] 07/06/2022 16:43:46 07/07/2022 12:54:22 care: history of infertility 174496459 O09.01 Breech presentation 6096 002 O32.1XX9 Gestationa l diabetes mellitus class A1 84332391 O24.410 Z3A.34 [id number] Jose Ramirez MD [facility] [address],[place] [address] 07/13/2022 15:58:00 07/13/2022 16:52:34 Gestational diabetes mellitus class A1 77871547 O24.410 [id number] MD Aldo Lopez [address],[place] [address] 07/13/2022 15:58:30 07/13/2022 18:06:18 Gestational diabetes mellitus class A1 79945679 O24.410 O09.03 Z3A.35 [id number] Haleigh Up MD [facility] [address],[place] [address] 07/13/2022 15:59:35 07/14/2022 15:27:39 Breech presentation 6256333 O32.1XX9 Gestationa l diabetes mellitus class A1 48479121 O24.410 O09.03 Z3A.35 [id number] MD Aldo Lopez [address],[place] [address] 07/20/2022 16:44:52 07/20/2022 18:14:19 Gestational diabetes mellitus class A1 34843730 O24.410 O09.03 Z3A.35 [id number] MD Aldo Lopez [address],[place] [address] 07/20/2022 16:47:09 07/20/2022 18:14:02 Gestational diabetes mellitus class A1 13339270 O24.410 Z3A.36 [id number] Haleigh Up MD [facility] [address],[place] [address] 07/20/2022 16:50:43 07/21/2022 15:36:39 care: history of infertility 519590025 O09.01 Breech presentation 6096 002 O32.1XX9 Gestationa l diabetes mellitus class A1 85021156 O24.410 Z3A.36 [id number] Haleigh Up MD [facility] [address],[place] [address] 07/26/2022 12:19:16 07/26/2022 13:10:07 Cholestasis of 476457978 O26.619 [id number] Haleigh Up MD [facility] [address],[place] [address] 08/04/2022 10:51:55 08/06/2022 14:54:36 Postoperative visit 152605654 Z09 Cholestasi s of 994088560 O26.619 [id number] MD Aldo Lopez [address],[place] [address] 08/25/2022 11:32:00 08/25/2022 14:26:28 care 188873758 Z39.2 Gestationa l diabetes mellitus class A1 86105862 O24.410 Z3A.36 [id number] [facility] [address],[place] [address] 10/18/2022 16:14:01 10/18/2022 18:00:30 Infection of the breast AND/OR nipple associated with childbirth 68797338 O91.02 Likely yeast. Discussed use of diflucan, washing pump in hot soapy water between every use, letting nipples dry prior to putting bra back on and use of ointment. Will return in 2 weeks for follow up or sooner if no improvemen t. Anxiety 94057180 F41.9 EPDS 12. No thoughts of harming herself or others. She has had anxiety in the past but has not taken medication . Discussed medication and counseling . Pt would like to start zoloft. Risks and benefits discussed. Will start on zoloft 50 mg. If any worsening of symptoms she will notify us right away. Otherwise will plan to follow up in 2-3 weeks. [id number] [facility] [address],[place] [address] 11/08/2022 14:16:07 11/08/2022 14:58:23 Mixed anxiety and depressive disorder 849504649 F41.8 Doing much better. Would like to continue zoloft. Anxiety 19827539 F41.9 [id number] LOGAN Villar [facility] [address],[place] [address] 07/26/2023 09:57:51 07/26/2023 11:10:35 Gynecologic examination 23759824 Z01.419 WWEBC - declinedpa p updatedSTI testing declinedUT D with PCPRTC in 1 yr or sooner if needed Take Calcium with Vitamin D daily if not receiving in daily diet.It is strongly advised to have an annual flu shot and up can obtain at most pharmacies . If you have not had a TDap shot in the last 10 years you should obtain one as well. Discussed with patient & provided with informatio n regarding Gardisil vaccine to prevent the 4 strains for HPV that cause cervical cancer if under age 26.Encoura ge safe sexual practices, to use condoms and limit partners if not already in a monogamous relationsh ip.Do monthly self breast exams.Have mammogram yearly or every other year depending on family history. BRCA testing is now available for patients with strong genetic history of female cancer. If interested contact the office.Eng age in daily exercise of low impact aerobic exercise 45-60 minutes 4-5 times weekly. Avoid tobacco and illicit drugs as well as using moderation with alcohol intake less than 1-2 8 oz beverages daily. This lifestyle behavior pattern will lead to less health conditions and longer life span. If BMI greater than 25 dietary consult advised.Deven laguerre received above instructio ns, and questions have been answered. If you have any questions please call or respond to this email.Aida sahu was made aware of the patient portal and may obtain a paper copy of today's plan if desired. Adult heal th examination 062033210 Z00.00 fasting labs orderedexe rcise recommenda tions discussed (150 min of exercise per week, cardio and strength exercises) kitchen manager consult recommende d - resources discussed Time spent in visit is a total of 30mins with at least 50% of visit consisting of counseling and review of plan of care. Weight gain 2969425 R63. 5 [id number] LOGAN Villar [place] [address],[place] [address] 02/21/2024 15:11:02 02/22/2024 09:54:52 Pain of breast 83219559 N64.4 bilateral diagnostic mammogram w/ left breast u/s including axilla orderedenc ouraged to decrease caffeine intakeques tions answered Time spent in visit is a total of 20 mins with at least 50% of visit consisting of counseling and review of plan of care. HEMA MITCHELL MD [facility] [address],[place] [address] 03/28/2024 15:54:53 03/29/2024 10:22:04 Female infertility 6774630 N97.9 - Differenti al diagnosis of cause of infertilit y includes: anovulatio n, luteal phase defect- We discussed the potential causes of infertilit y and rationale behind testing. We also discussed her reproducti ve potential in the context of her age as well as the risk of aneuploidy .- The patient is asked to complete the following diagnostic work up to include:FS H, estradiol, TSH, A1C--- prior workup negative preceding first - Previous semen analysis wnl- Discussed the fertile time of the cycle and options for tracking ovulation, including ovulation predictor kits and basal body temperatur e.-- Discussed timed intercours e every other day starting on Day 7 of cycle through day after positive OPK.-- Discussed using LH surge kits, usually accurate and would recommend intercours e that day and the next day, then can wait until next cycle.-- Discussed risks of ovulation induction including 5% risk of multiple gestation with letrozole- - Patient desires to proceed with OI; will call office with CD1 so medication s can be sent and labs scheduled [id number] LOGAN Villar [place] [address],[place] [address] 04/17/2025 09:24:47 04/17/2025 11:17:42 Gynecologic examination 65620115 Z01.307 [id number] EBC - TTC , seeing RODDY/kindbo dyPap - done todaySTI screen - declinedRo utine labs - PCPRTC in 1 yr or sooner if needed It is strongly advised to have an annual flu shot and up can obtain at most pharmacies . If you have not had a TDap shot in the last 10 years you should obtain one as well. Discussed with patient & provided with informatio n regarding the HPV vaccine if applicable . Encourage safe sexual practices, to use condoms and limit partners if not already in a monogamous relationsh ip. Do monthly self breast exams. BRCA testing is now available for patients with strong genetic history of female cancer. If interested contact the office. Engage in regular exercise. Avoid tobacco and illicit drugs. This lifestyle behavior pattern will lead to less health conditions and longer life span. If BMI greater than 25 dietary consult advised. Questions answered. Health Concerns Section Related Observation LastModified by Organization Detai ls LastModified Time None Recorded Concern Status LastModified by Organization Details LastModified Time None Recorded Advance Directives Directive N: Payers Insurance Date Sequence Insurance Name Policy Number Policy Martinez Covered Member ID Martinez Member ID Guarantor Name 04/14/2025 1 [facility] [id number] Chacha Landeros [id number] Chacha Landeros 07/26/2023 1 [facility] [id number] Chacha Landeros [id number] Chacha Landeros Notes Date Note Type Note Provider Name and Address Organization Details Recorded Time 3 text/html ROS as noted in the HPI Doing well on the zoloft.Nipple/breast itching resolved. Sravanthi lester, [facility] 11/08/2022 14:48:09 3 text/html Annual GYNReported by PatientGenitourinary symptomsFor menstrual cycle, patient reportsnormal menses. For urinary symptoms, patient reportsno hematuriaandno incontinence. For vulva, patient reportsno genital lesion. For vagina, patient reportsnormal vaginal discharge.Breast symptomsFor breast, patient reportsno breast pain,no breast lump, andno nipple discharge.ContraceptionFo r current contraception, patient reportssatisfied with current contraception(withdrawal) .Endocrine symptomsFor sexual complaints, patient reportsno sexual complaints,no pain during intercourse, andnormal libido. For menopausal symptoms, patient reportsno menopausal symptomsandnormal vaginal lubrication.Psychological symptomsFor psychological symptoms, patient reportsno depression,no anxiety, andno pmdd.Preventative measuresFor preventive measures, patient reportsencourage self breast examination,encourage regular exercise,encourage no tobacco use, andencourage regular mammograms starting age 40.hx of abnormal pap in 2012, no procedures requiredlast pap 2020 - normalweigh gain over the past 1 yr despite eating healthy. Very active/walking during the day at work LOGAN Villar [address], [place], [address], [facility] 07/26/2023 11:01:40 4 text/html 33yo [id number] for left breast painsymptoms present for the past few weeksgeneralized left breast soreness, extending to axillano lumpsno nipple dischargeLMP 02/06/2024 LOGAN Villar [address], [place], [address], [facility] 02/22/2024 09:13:27 4 text/html Presents to discuss infertility. Has been having unprotected intercourse since period; reports cycle tracking for 7 months, having positive OPKs. hx significant for 1 term delivery, letrozole 5mg needed to conceive that . Prior to starting OI for first delivery, had low progesterone. Did 1 round of 2.5mg letrozole, did not conceive. Increased to 5mg letrozole. Was put on progesterone supplementation due to borderline low progesterone. Had cholestasis with last , delivered at 37 weeks. Breech presentation, c section. Also GDMA1. 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 03/28/2024 23:32:23 5 text/html Annual GYNReported by PatientGenitourinary symptomsFor menstrual cycle, patient reportsnormal menses. For urinary symptoms, patient reportsno hematuriaandno incontinence. For vulva, patient reportsno genital lesion. For vagina, patient reportsnormal vaginal discharge.Breast symptomsFor breast, patient reportsno breast pain,no breast lump, andno nipple discharge.ContraceptionFo r current contraception, patient reportsbirth control not practiced.Endocrine symptomsFor sexual complaints, patient reportsno sexual complaints,no pain during intercourse, andnormal libido. For menopausal symptoms, patient reportsno menopausal symptomsandnormal vaginal lubrication.Psychological symptomsFor psychological symptoms, patient reportsno depression,no anxiety, andno pmdd.Preventative measuresFor preventive measures, patient reportsencourage self breast examination,encourage regular exercise,encourage no tobacco use, andencourage regular mammograms starting age 40.35yo wwe [id number], conceived with letrozole in 2021. Has done 5 rounds of letrozole recently, did not conceive. Has appointment with RODDY/kindbody coming uplast pap 07/2023 : nilm, HPV (-) LOGAN Villar [address], [place], [address], [facility] 04/17/2025 10:53:25 OBGyn Episode Ob Episode Information Episode Created Date Number of Fetuses Patient Bloodtype Patient rh Status Prepregnancy Weight lbs Domestic Partner Domestic Partner Phone Father Name Condominium Property Manager Status 10/18/19 23 1 CLOSED Fetus Data First Name Last Name Admitted to NICU Weight (g) Sex Living Outcome Pediatric Complications Fetus ID Race Codes Race Delivery Type , Spontane ous [id number] Ady Calculation Initial Ady Date Initial Exam Date Initial Exam Provider Initial Ultrasound Date Last Menstrual Period Date Ultra Sound Weeks Gestation 0 Eighteen To Twenty Week Ady Update Ultra Sound Date Fundal Height At Umbil Quickening Date Ultra Sound Latest Weeks Gestation Final Ady Confirmed By Final Ady Confirmed Date Final Ady Date Ultra Sound Latest Days Gestation 0 0 Menstrual History Last Menstrual Date Menses Monthly On Bcp Conception Prior Menses Frequency Hcg Plus Date Menarche Onset Age Delivery Information Delivery Date Delivery Type Labor Anesthesia Weeks Gestation Incision Type Labor Labor Length Hrs Delivered By Post Complications Tubal Sterilization Discharge Date Comments 1 Discharge Information Feeding Method Contraceptive Method Maternal HG B and HCT Levels Ob Episode Information Episode Created Date Number of Fetuses Patient Bloodtype Patient rh Status Prepregnancy Weight lbs Domestic Partner Domestic Partner Phone Father Name Condominium Property Manager Status 02/02/20 22 1 O Positive 199 CLOSED Fetus Data First Name Last Name Admitted to NICU Weight (g) Sex Living Outcome Pediatric Complications Fetus ID Race Codes Race Delivery Type Masoud 2693.20 25 F true Full Term [id number] Primary Problems Problem Notes Up pt!! Problem Name Start Date End Date Resolution Snomed Code Not e Carrier of cystic fibrosis gene mutation [id number] FOB N EGATIVE 03/10/22 Psoriasis of vulva 01/08/2022 [id number] care: history of infertility [id number] letrozole pre g Gestational diabetes mellitus class A1 10323838 Breech presentation [id number] CS 39w Ady Calculation Initial Ady Date Initial Exam Date Initial Exam Provider Initial Ultrasound Date Last Menstrual Period Date Ultra Sound Weeks Gestation 08/12/2022 02/01/2022 01/06/2022 11/05/2021 9 Eighteen To Twenty Week Ady Update Ultra Sound Date Fundal Height At Umbil Quickening Date Ultra Sound Latest Weeks Gestation Final Ady Confirmed By Final Ady Confirmed Date Final Ady Date Ultra Sound Latest Days Gestation 0 08/12/20 22 0 Pre- Flowsheet Flowsheet Date 02/01/2022 Ordonez Score Blood Edema Fundus Height Fundus Units Glucose Ketones Leukocytes Nitrite Labor Signs Protein Cervic Dilation Cervic Effacement Cervic Station neg none none trace Type Weight in lbs Pre/Post Dialysis Refused Weight 194.344830637095 BP Diastolic BP Location Tested BP Systolic BP Type 82 120 Fetus Heart Rate Present A 150 Fetus Movement A No Comments Chacha is a 31yo at 12. 4 for care. Had one early miscarriage and infertility- letrozole . Her history is noncontnributory. Her psoriasis is much better with triamcinolone creamand her N/V is improving but appetite still poor. Encouraged small frequent snacks and meals. Labs and NIPT today. Has had COVID vaccines and booster. Flowsheet Date 03/01/2022 Ordonez Score Blood Edema Fundus Height Fundus Units Glucose Ketones Leukocytes Nitrite Labor Signs Protein Cervic Dilation Cervic Effacement Cervic Station neg none none trace Type Weight in lbs Pre/Post Dialysis Refused Weight 189.407856704487 BP Diastolic BP Location Tested BP Systolic BP Type 82 134 Fetus Heart Rate Present A 140 Fetus Movement A No Comments Doing well. Still nausea, bu t much less vomiting. Is still losing weight, follow next visit. FOB doing CF carrier testing today. NO concerns. Anatomy US next. Flowsheet Date 03/31/2022 Ordonez Score Blood Edema Fundus Height Fundus Units Glucose Ketones Leukocytes Nitrite Labor Signs Protein Cervic Dilation Cervic Effacement Cervic Station Type Weight in lbs Pre/Post Dialysis Refused BP Diastolic BP Location Tested BP Systolic BP Type Fetus Heart Rate Present Fetus Movement Comments Flowsheet Date 03/31/2022 Ordonez Score Blood Edema Fundus Height Fundus Units Glucose Ketones Leukocytes Nitrite Labor Signs Protein Cervic Dilation Cervic Effacement Cervic Station neg trace none trace Type Weight in lbs Pre/Post Dialysis Refused Weight 187.431751593397 BP Diastolic BP Location Tested BP Systolic BP Type 83 127 Fetus Heart Rate Present A 135 Fetus Movement A Yes Comments Doing much better- the last week appetite really good. Having pelvic soreness, will try support belt. If wants PT, will call. US today anaotmy complete and wnl. Flowsheet Date 04/30/2022 Ordonez Score Blood Edema Fundus Height Fundus Units Glucose Ketones Leukocytes Nitrite Labor Signs Protein Cervic Dilation Cervic Effacement Cervic Station neg none 27 none trace Type Weight in lbs Pre/Post Dialysis Refused Weight 188.892527418947 BP Diastolic BP Location Tested BP Systolic BP Type 76 120 Fetus Heart Rate Present A 155 Fetus Movement A Yes Comments Doing well. Support belt hel ping. GCT next. Will discuss Tdap next. Flowsheet Date 05/21/2022 Ordonez Score Blood Edema Fundus Height Fundus Units Glucose Ketones Leukocytes Nitrite Labor Signs Protein Cervic Dilation Cervic Effacement Cervic Station neg trace 30 none trace Type Weight in lbs Pre/Post Dialysis Refused Weight 189.081036395255 BP Diastolic BP Location Tested BP Systolic BP Type 82 138 Fetus Heart Rate Present A 150 Fetus Movement A Yes Comments GCT today. TDap discussed an d encouraged, will do. No concerns. Flowsheet Date 05/26/2022 Ordonez Score Blood Edema Fundus Height Fundus Units Glucose Ketones Leukocytes Nitrite Labor Signs Protein Cervic Dilation Cervic Effacement Cervic Station Type Weight in lbs Pre/Post Dialysis Refused BP Diastolic BP Location Tested BP Systolic BP Type Fetus Heart Rate Present Fetus Movement Comments Flowsheet Date 06/04/2022 Ordonez Score Blood Edema Fundus Height Fundus Units Glucose Ketones Leukocytes Nitrite Labor Signs Protein Cervic Dilation Cervic Effacement Cervic Station neg none 31 none trace Type Weight in lbs Pre/Post Dialysis Refused Weight 191.405944854354 BP Diastolic BP Location Tested BP Systolic BP Type 78 119 Fetus Heart Rate Present A 145 Fetus Movement A Yes Comments Doing ok. Checking sugars fo r a week. 2 fastings elevated, 5 pp elevated, and 7 in the 130s. Will do diabetic education and keep checking sugars with the assumption that they would only get worse with more advanced GA. Tdap is done. Will start growth US and ante testing next visit. Flowsheet Date 06/04/2022 Ordonez Score Blood Edema Fundus Height Fundus Units Glucose Ketones Leukocytes Nitrite Labor Signs Protein Cervic Dilation Cervic Effacement Cervic Station Type Weight in lbs Pre/Post Dialysis Refused BP Diastolic BP Location Tested BP Systolic BP Type Fetus Heart Rate Present Fetus Movement Comments Flowsheet Date 06/14/2022 Ordonez Score Blood Edema Fundus Height Fundus Units Glucose Ketones Leukocytes Nitrite Labor Signs Protein Cervic Dilation Cervic Effacement Cervic Station Type Weight in lbs Pre/Post Dialysis Refused BP Diastolic BP Location Tested BP Systolic BP Type Fetus Heart Rate Present Fetus Movement Comments Flowsheet Date 06/14/2022 Ordonez Score Blood Edema Fundus Height Fundus Units Glucose Ketones Leukocytes Nitrite Labor Signs Protein Cervic Dilation Cervic Effacement Cervic Station Type Weight in lbs Pre/Post Dialysis Refused BP Diastolic BP Location Tested BP Systolic BP Type Fetus Heart Rate Present Fetus Movement Comments Flowsheet Date 06/14/2022 Ordonez Score Blood Edema Fundus Height Fundus Units Glucose Ketones Leukocytes Nitrite Labor Signs Protein Cervic Dilation Cervic Effacement Cervic Station neg none none trace Type Weight in lbs Pre/Post Dialysis Refused Weight 189.167627373369 BP Diastolic BP Location Tested BP Systolic BP Type 83 119 Fetus Heart Rate Present A 155 Fetus Movement A Yes Comments Doing well. BS- fastings per fect. Breakfasts a lot borderline, discussed adding protein. US today 47% breech. Briefly mentioned ECV vs CS. Will monitor. Flowsheet Date 06/22/2022 Ordonez Score Blood Edema Fundus Height Fundus Units Glucose Ketones Leukocytes Nitrite Labor Signs Protein Cervic Dilation Cervic Effacement Cervic Station Type Weight in lbs Pre/Post Dialysis Refused BP Diastolic BP Location Tested BP Systolic BP Type Fetus Heart Rate Present Fetus Movement Comments Flowsheet Date 06/22/2022 Ordonez Score Blood Edema Fundus Height Fundus Units Glucose Ketones Leukocytes Nitrite Labor Signs Protein Cervic Dilation Cervic Effacement Cervic Station Type Weight in lbs Pre/Post Dialysis Refused BP Diastolic BP Location Tested BP Systolic BP Type Fetus Heart Rate Present Fetus Movement Comments Flowsheet Date 06/22/2022 Ordonez Score Blood Edema Fundus Height Fundus Units Glucose Ketones Leukocytes Nitrite Labor Signs Protein Cervic Dilation Cervic Effacement Cervic Station neg trace trace trace Type Weight in lbs Pre/Post Dialysis Refused Weight 192.069407530019 BP Diastolic BP Location Tested BP Systolic BP Type 77 119 Fetus Heart Rate Present A 135 Fetus Movement A Yes Comments Doing well. Fasting sugars a ll normal except one, about 30% pp elevated, mostly eating out. Will change this, focus more on diet. BPP 8/8. Breech. Flowsheet Date 06/29/2022 Ordonez Score Blood Edema Fundus Height Fundus Units Glucose Ketones Leukocytes Nitrite Labor Signs Protein Cervic Dilation Cervic Effacement Cervic Station Type Weight in lbs Pre/Post Dialysis Refused BP Diastolic BP Location Tested BP Systolic BP Type Fetus Heart Rate Present Fetus Movement Comments Flowsheet Date 06/29/2022 Ordonez Score Blood Edema Fundus Height Fundus Units Glucose Ketones Leukocytes Nitrite Labor Signs Protein Cervic Dilation Cervic Effacement Cervic Station Type Weight in lbs Pre/Post Dialysis Refused BP Diastolic BP Location Tested BP Systolic BP Type Fetus Heart Rate Present Fetus Movement Comments Flowsheet Date 06/29/2022 Ordonez Score Blood Edema Fundus Height Fundus Units Glucose Ketones Leukocytes Nitrite Labor Signs Protein Cervic Dilation Cervic Effacement Cervic Station neg none none trace Type Weight in lbs Pre/Post Dialysis Refused Weight 191.055649914435 BP Diastolic BP Location Tested BP Systolic BP Type 77 129 Fetus Heart Rate Present A 150 Fetus Movement A Yes Comments Doing well. BS improving. Go ing to give up coffee in the morning because even low sugar sweetener seeming to cause problems. Fastings all good. BPP 10/10, still breech. Wants CS if remains breech, will schedule next week. Flowsheet Date 07/06/2022 Ordonez Score Blood Edema Fundus Height Fundus Units Glucose Ketones Leukocytes Nitrite Labor Signs Protein Cervic Dilation Cervic Effacement Cervic Station Type Weight in lbs Pre/Post Dialysis Refused BP Diastolic BP Location Tested BP Systolic BP Type Fetus Heart Rate Present Fetus Movement Comments Flowsheet Date 07/06/2022 Ordonez Score Blood Edema Fundus Height Fundus Units Glucose Ketones Leukocytes Nitrite Labor Signs Protein Cervic Dilation Cervic Effacement Cervic Station Type Weight in lbs Pre/Post Dialysis Refused BP Diastolic BP Location Tested BP Systolic BP Type Fetus Heart Rate Present Fetus Movement Comments Flowsheet Date 07/06/2022 Ordonez Score Blood Edema Fundus Height Fundus Units Glucose Ketones Leukocytes Nitrite Labor Signs Protein Cervic Dilation Cervic Effacement Cervic Station neg none none trace Type Weight in lbs Pre/Post Dialysis Refused Weight 190.045976168500 BP Diastolic BP Location Tested BP Systolic BP Type 76 116 Fetus Heart Rate Present A 160 Fetus Movement A Yes Comments BS better! Perfect except fo r pizza at a bday constitution party. BPP 10/10, still breech. Will schedule CS for 08/06. Flowsheet Date 07/13/2022 Ordonez Score Blood Edema Fundus Height Fundus Units Glucose Ketones Leukocytes Nitrite Labor Signs Protein Cervic Dilation Cervic Effacement Cervic Station Type Weight in lbs Pre/Post Dialysis Refused BP Diastolic BP Location Tested BP Systolic BP Type Fetus Heart Rate Present Fetus Movement Comments Flowsheet Date 07/13/2022 Ordonez Score Blood Edema Fundus Height Fundus Units Glucose Ketones Leukocytes Nitrite Labor Signs Protein Cervic Dilation Cervic Effacement Cervic Station Type Weight in lbs Pre/Post Dialysis Refused BP Diastolic BP Location Tested BP Systolic BP Type Fetus Heart Rate Present Fetus Movement Comments Flowsheet Date 07/13/2022 Ordonez Score Blood Edema Fundus Height Fundus Units Glucose Ketones Leukocytes Nitrite Labor Signs Protein Cervic Dilation Cervic Effacement Cervic Station neg trace none trace 2cm 60% -2 Type Weight in lbs Pre/Post Dialysis Refused Weight 191.696476034371 BP Diastolic BP Location Tested BP Systolic BP Type 82 140 Fetus Heart Rate Present Fetus Movement A Decreased Comments Pt is teary with decreased F M today. BPP 10/10 with gorgeous NST. MERY 8. She admits to not being well hydrated. Reassured re testing. Will do kick counts and hydrate better. 54%, breech. GBS done, Almost 2cm and breech low in pelvis, soft cervix. Labor precautions given. Fastings perfect, a couple PP elevated. Flowsheet Date 07/20/2022 Ordonez Score Blood Edema Fundus Height Fundus Units Glucose Ketones Leukocytes Nitrite Labor Signs Protein Cervic Dilation Cervic Effacement Cervic Station Type Weight in lbs Pre/Post Dialysis Refused BP Diastolic BP Location Tested BP Systolic BP Type Fetus Heart Rate Present Fetus Movement Comments Flowsheet Date 07/20/2022 Ordonez Score Blood Edema Fundus Height Fundus Units Glucose Ketones Leukocytes Nitrite Labor Signs Protein Cervic Dilation Cervic Effacement Cervic Station Type Weight in lbs Pre/Post Dialysis Refused BP Diastolic BP Location Tested BP Systolic BP Type Fetus Heart Rate Present Fetus Movement Comments Flowsheet Date 07/20/2022 Ordonez Score Blood Edema Fundus Height Fundus Units Glucose Ketones Leukocytes Nitrite Labor Signs Protein Cervic Dilation Cervic Effacement Cervic Station neg trace 3+ trace 2cm 60% Type Weight in lbs Pre/Post Dialysis Refused Weight 190.754427890144 BP Diastolic BP Location Tested BP Systolic BP Type 83 134 Fetus Heart Rate Present A 145 Fetus Movement A Yes Comments Doing well. BPP 10/10. Some contractions. CS scheduled 08/06, thinks she will labor before then. GBS neg. Precautions given. All ffastings perfect, 3 PP slightly elevated. Flowsheet Date 07/26/2022 Ordonez Score Blood Edema Fundus Height Fundus Units Glucose Ketones Leukocytes Nitrite Labor Signs Protein Cervic Dilation Cervic Effacement Cervic Station Type Weight in lbs Pre/Post Dialysis Refused BP Diastolic BP Location Tested BP Systolic BP Type 82 132 Fetus Heart Rate Present Fetus Movement Comments Flowsheet Date 08/04/2022 Ordonez Score Blood Edema Fundus Height Fundus Units Glucose Ketones Leukocytes Nitrite Labor Signs Protein Cervic Dilation Cervic Effacement Cervic Station Type Weight in lbs Pre/Post Dialysis Refused Weight 178.798710200559 BP Diastolic BP Location Tested BP Systolic BP Type 82 131 Fetus Heart Rate Present Fetus Movement Comments Flowsheet Date 08/25/2022 Ordonez Score Blood Edema Fundus Height Fundus Units Glucose Ketones Leukocytes Nitrite Labor Signs Protein Cervic Dilation Cervic Effacement Cervic Station Type Weight in lbs Pre/Post Dialysis Refused Weight 176.693213066418 BP Diastolic BP Location Tested BP Systolic BP Type 76 115 Fetus Heart Rate Present Fetus Movement Comments Menstrual History Last Menstrual Date Menses Monthly On Bcp Conception Prior Menses Frequency Hcg Plus Date Menarche Onset Age 0211/05/2021 Genetic Screening And Infection History Question Response Note Mental Retardation/Autism false Patient's Age Will Be 35 Years Or Older At Estim ated Date of Delivery false Thalassemia (Setswana, Ecuadorean, Mediterranean, Or Background): MCV < 80 false Neural Tube Defect (Meningomyelocele, Spina Bifi da, Or Anencephaly) false Congenital Heart Defect false Down Syndrome false Howard-Sachs (eg, Adventism, Cajun, Welsh-Tully) f alse Inder Disease false Sickle Cell Disease Or Trait () false Hemophilia Or Other Blood Disorders false Muscular Dystrophy false Cystic Fibrosis false Bryant's Chorea false Intellectual Disability/Autism false If Yes, Was Person Tested For Fragile X? false Other Inherited Genetic Or Chromosomal Disorder false Maternal Metabolic Disorder (eg, Type 1 Diabetes , PKU) false Patient Or Baby's Father Had A Child With Defects Not Listed Above false Recurrent Loss, Or A Stillbirth false Medications (including Suppl ements, Vitamins, Herbs, OTC Drugs), Illicit/Recreational Drugs, Alcohol false If Yes, Agent(s) And Strength/Dosage false Any Other Genetic History false Live With Someone With TB Or Exposed To TB false Patient Or Partner Has History Of Genital Herpes false Rash Or Viral Illness Since Last Menstrual Perio d false History Of STD, Gonorrhea, Chlamydia, HPV, Syphi lis false Other Infection History false History of HIV false History of Hepatitis false Prior GBS-infected child false Hemoglobinopathy Or Carrier false Other Structural Defect false Recent Travel History Outside of Country false Delivery Information Delivery Date Delivery Type Labor Anesthesia Weeks Gestation Incision Type Labor Labor Length Hrs Delivered By Post Complications Tubal Sterilization Discharge Date Comments 2 None Regional-Sp inal 37.4 Low Transvers e false Haleigh Up MD Breech, Cholestas is & GDM Discharge Information Feeding Method Contraceptive Method Maternal HG B and HCT Levels Breast
--- OUTSIDE RECORDS SUMMARY | 2025-08-07 04:52 | XMS_ITS | Clinical Summary ---
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 Overview (04/08/2023): FOB NEGATIVE 03/10/22 Infertility, female 04/08/2023 Overview (04/08/2023): letrozole preg White classification A1 gestational diabetes rhonda litus (GDM) 04/08/2023 Obesity (BMI 30-39.9) 04/08/2023 Psoriasis of vulva 01/08/2022 Abnormal cervical Papanicolaou smear 06/19/2013 Overview (04/08/2023): Papanicolaou smear of cervix with atypical squamous cells of undetermined significance (ASC-US);Recorded Elsewhere: No Location: [facility] Source: EHR Chronic: N Practice ID: [id number] Billable Time: 02:00:00 PM Resolved Problems Problem Noted Date Diagnosed Date Resolved Date 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 08/08/2023 Overview (04/08/2023): Bradycardia;Recorded Elsewhere: No Location: [facility] Source: EHR Chronic: N Practice ID: [id number] Billable Time: 02:23:43 PM Immunizations Immunization Administration Dates Next Due MODERNA COVID-19 (12+) MRNA, LNP-S, PF, 100 MCG/ 0.5 ML DOSE 12/14/2020,11/16/2020 MODERNA COVID-19 (YOUTH AGENT JORGE LUIS KISHORE), MRNA, LNP-S, PF, 50 MCG/ 0.25 ML DOSE 09/16/2021 Tdap (Generic) 05/28/2022 Family History Medical History Relation Comments Prostate Cancer Father Diabetes Maternal Grandmother Relation Status Comments Father Alive Maternal Grandmother Mother Alive Social History Tobacco Use Types Packs/Day Years Used Date Smoking Tobacco: Never Smokeless Tobacco: Never Tobacco Cessation:Counseling Given: No Alcohol Use Standard Drinks/Week Comments Yes 0 (1 standard drink = 0.6 oz pur e alcohol) rare; twice monthly PHQ-2 Answer Date Recorded Patient Health Questionnaire-2 Score 0 04/08/2023 Comments No Sex and Gender Information Value Date Recorded Sex Assigned at Not on file Legal Sex Female 10:08 AM CDT Gender Identity Not on file Sexual Orientation Not on file Last Filed Vital Signs Vital Sign Reading Time Taken Comments Blood Pressure 114/70 08/08/2023 7:05 AM EXTRUDER TENDER Pulse 82 08/08/2023 7:05 AM EXTRUDER TENDER Temperature 36.7 C (98 F) 08/08/2023 7:05 AM EXTRUDER TENDER Respiratory Rate 12 08/08/2023 7:05 AM EXTRUDER TENDER Oxygen Saturation 97% 08/08/2023 7:05 AM EXTRUDER TENDER Inhaled Oxygen Concentration - - Weight 92.1 kg (203 lb) 08/08/2023 7:05 AM EXTRUDER TENDER Height 167.6 cm (5' 6) 08/08/2023 7:05 AM EXTRUDER TENDER Body Mass Index 32.77 08/08/2023 7:05 AM EXTRUDER TENDER Plan of Treatment Health Maintenance Due Date Last Done Comments Annual Physical 1995 Hepatitis B Vaccines (1 of 3 - 19+ 3-dose series) 2011 HPV Vaccines (1 - 3-dose SCD M series) 2019 Cervical Cancer Screening Pa favian with HPV Testing (Age 30 to 64) Every 5 Years 2022 PHQ-2 (Physician Ewiiaapaayp) 09/19/2024 COVID-19 Vaccine ( - 2024-2 6 season) 2025 09/16/2021, 12/14/2020, 11/16/2020 Influenza Adult (#1) 2025 Cervical Cancer Screening Pa p Smear (Age 30 to 64) Every 3 Years 07/26/2026 07/26/2023 Cervical Cancer Screening with HPV 07/26/2026 DTaP, Tdap and Td Vaccines ( 2 - Td or Tdap) 05/28/2032 05/28/2022 Hepatitis C 04/08/2053 Postponed from 2010 (Patient Refused) Hepatitis A Vaccines Aged Out No long er eligible based on patient's age to complete this topic Meningococcal B Vaccine Aged Out No l onger eligible based on patient's age to complete this topic Meningococcal Vaccine Aged Out No deng sami eligible based on patient's age to complete this topic Pneumococcal Vaccine: Pediatrics (0 to 5 Years) and At-Risk Patients (6 to 49 Years) Aged Out No longer eligible b ased on patient's age to complete this topic RSV Immunizations Under 20 Months Aged Out No longer eligible b ased on patient's age to complete this topic Insurance Care Teams Agricultural Equipment Test Engineer Relationship Specialty Start [place] [id number] [place] [address] PCP - General Nurse Practitioner Family 04/08/23
--- OUTSIDE RECORDS SUMMARY | 2025-08-07 04:52 | XMS_ITS | Clinical Summary ---
Author Organization [facility] [address] Address [address] [place] [id number] Care Team Providers Care Nail Sticker Name Role Phone Lu Mcclellan NP Primary Care Provide r Allergies No known active allergies Medications azithromycin (ZITHROMAX) 250 mg tablet Take 2 tabs (500 mg) by mouth today, than 1 tab (250 mg) daily for 4 days. 6 tablet 5 Active methylPREDNISol one (MEDROL DOSEPACK) 4 mg Dosepack Take as directed on package. 21 tablet 5 07/15/20 25 amoxicillin-cla vulanate (AUGMENTIN) 875-125 mg per tablet Take 1 tablet by mouth 2 (two) times a day for 7 days 14 tablet 5 07/16/20 25 Active Problems No known active problems Encounters Date Type Department Care Team Description 07/09/2025 12:45 PM CDT Ancillary Procedure [facility] Imaging at [address] [address] Acute cough 07/09/2025 12:15 PM CDT Office Visit [facility] at [address] [id number] Ashley Proctor PA Lower respiratory infection (Primary Dx) from Last 3 Months Social History Tobacco Use Types Packs/Day Years Used Date Smoking Tobacco: Never Assessed Comments Unknown Sex and Gender Information Value Date Recorded Sex Assigned at Not on file Legal Sex Female 9:11 AM CDT Gender Identity Not on file Sexual Orientation Not on file Last Filed Vital Signs Vital Sign Reading Time Taken Comments Blood Pressure 120/76 07/09/2025 12:26 PM CDT Pulse 109 07/09/2025 12:26 PM CDT Temperature 36.6 C (97.8 F) 07/09/2025 12:26 PM CDT Respiratory Rate 20 07/09/2025 12:26 PM CDT Oxygen Saturation 97% 07/09/2025 12:26 PM CDT Inhaled Oxygen Concentration - - Weight 98 kg (216 lb) 07/09/2025 12:26 PM CDT Height - - Body Mass Index - - Plan of Treatment Health Maintenance Due Date Last Done Comments Cervical Cancer Screening 1992 Depression Screening 1992 Hepatitis C Screening 1992 Varicella Vaccines (1 of 2 - 13+ 2-dose series) 2005 Hepatitis B Screening 2010 Regular Well Visit/Exam 18-64 2010 HPV Vaccines (1 - 3-dose SCD M series) 2019 Covid-19 Vaccine ( - 2024-2 6 season) 2025 09/16/2021, 12/14/2020, 11/16/2020 Influenza Vaccine (#1) 2025 07/29/2022 DTaP/Tdap/Td Vaccine (2 - Td or Tdap) 05/28/2032 05/28/2022 Pneumococcal vaccine <65 Aged Out No longer eligible based on patient's age to complete this topic Procedures Procedure Name Priority Date/Time Associated Diagnosis Comments XR CHEST PA LATERAL 2 VIEWS Schedule LUZ, Read LUZ (Appt Today, Awaiting Results) 07/09/2025 12:50 PM CDT Acute cough from Last 3 Months Results * XR Chest Pa Lateral 2 Views (07/09/2025 12:50 PM CDT) Anatomical Region Laterality Modality Body, Chest N/A Digital Radiogra phy 07/09/2025 12:5 7 PM CDT Narrative 07/09/2025 1:01 PM CDT EXAM DESCRIPTION: XR CHEST PA LATERAL 2 VIEWS REASON FOR STUDY: cough Pt thinks she has pneumonia, cough x 4 days, non smoker, no asthma, no copd, no surgeries to chest TECHNIQUE: 2 radiographic view(s) of the chest. COMPARISON: None FINDINGS: LUNGS: Right basilar bandlike opacity, best seen on the lateral view. No significant pleural effusion. No pneumothorax. HEART/MEDIASTINUM: Cardiac silhouette normal in size. Mediastinal and hilar contours appear normal. LINES/TUBES: None. BONES: No acute osseous abnormality. IMPRESSION: Bandlike opacity in the right lower lobe may represent scarring, atelectasis, or pneumonia. Consider short-term follow-up radiograph or chest CT. THIS IS AN ELECTRONICALLY VERIFIED FINAL REPORT 07/09/2025 1:01 PM - Electronically signed by Aakash MAYS T: Report ID: [id number] Reading Location: [id number] Procedure Note Aakash Spence MD - 07/09/2025 EXAM DESCRIPTION: XR CHEST PA LATERAL 2 VIEWS REASON FOR STUDY: cough Pt thinks she has pneumonia, cough x 4 days, non smoker, no asthma, nocopd, no surgeries to chest TECHNIQUE: 2 radiographic view(s) of the chest. COMPARISON: None FINDINGS: LUNGS: Right basilar bandlike opacity, best seen on the lateral view. No significant pleural effusion. No pneumothorax. HEART/MEDIASTINUM: Cardiac silhouette normal in size. Mediastinal andhilar contours appear normal. LINES/TUBES: None. BONES: No acute osseous abnormality. IMPRESSION: Bandlike opacity in the right lower lobe may representscarring, atelectasis, or pneumonia. Consider short-term follow-up radiograph orchest CT. THIS IS AN ELECTRONICALLY VERIFIED FINAL REPORT 07/09/2025 1:01 PM - Electronically signed by Aakash MAYS T: Report ID: [id number] Reading Location: [id number] Ashley ZABALA IMG XR PROCEDURES Final Result from Last 3 Months Insurance [facility] CHOICE PLUS Care Teams Nail Sticker Relationship Specialty [place] [id number] [address] [address] PCP - General Nurse Practitioner 07/09/25
== END 2025-08-06 22:14 | disposition home or self-care (01) ==
PROVIDERS: Emergency Provider Student in an Organized Health Care Education/Training Program; PCP Nurse Practitioner Family
DX: G43.109 Migraine with aura, not intractable, without status migrainosus (principal); L40.9 Psoriasis, unspecified; Z86.2 Personal history of diseases of the blood and blood-forming organs and certain disorders involving the immune mechanism; R00.0 Tachycardia, unspecified
CPT/HCPCS: 36415; 70450; 70496; 70498; 71045; 80053; 81025; 82948; 84484; 85025; 85610; 85730; 93005; 96361; 96374; 96375; 99284; J0780; J1200; J1885; J7030; Q9967